=== PATIENT | female | born 1940 | race Caucasian/White ===

== ENCOUNTER 2016-08-29 20:37 | Emergency (ER) | payer MEDICARE ==
[2016-08-29] MEDS ORDERED: NS 0.9% 1000 ML* 1,000 ML IV ONE (21:20)
--- NOTE | 2016-08-29 21:49 | RAD ---
Indication: Headache. On Coumadin. Remote CVA. Comparison: November 02, 2011 CT. Technique: Noncontrast CT vertex of skull through foramen magnum. Report: Moderate prominence of the cerebral sulci and cerebellar fissures reflecting volume loss. Unremarkable ventricles and basal cisterns. Negative for agrawal matter white matter obscuration, intra or extra-axial hemorrhage, or mass effect. Unremarkable orbital contents. Unremarkable calvarium and skull base. Clear visualized paranasal sinuses and mastoid air spaces. Unremarkable scalp. IMPRESSION: Mild to moderate involutional change with interval worsening compared with the 2012 exam. No acute intracranial process evident.
[2016-08-29 23:08] LABS: Hematocrit 41 % (35-47); Hemoglobin 13.7 g/dl (12.0-16.0); Mean Corpuscular HGB Conc 34 g/dl (31-36); Mean Corpuscular Hemoglobin 30 pg (27-31); Mean Corpuscular Volume 89 fL (80-97); Mean Platelet Volume 9 um3 (7.4-10.4); Red Blood Count 4.54 10^6/ul (4.0-5.4); Red Cell Distribution Width 14 % (10.5-15); White Blood Count 4.8 10^3/ul (3.5-10.8)
[2016-08-29 23:18] LABS: Erythrocyte Sed Rate 26 mm/Hr (0-40)
[2016-08-29 23:20] LABS: Albumin 4.4 g/dL (3.2-5.2); BUN/Creatinine Ratio 18.4 (8-20); Calcium 9.5 mg/dL (8.6-10.3); EGFR African American 70.6 (>60); EGFR Non-African American 54.9 (>60); Globulin 2.9 g/dL (2-4); Total Bilirubin 0.4 mg/dL (0.2-1.0); Total Protein 7.3 g/dL (6.4-8.9)
[2016-08-29 23:35] VITALS: BP 139/49
--- NOTE | 2016-08-29 23:36 | ED ---
Alyx Bhandari Alok, scribed for Moi Muir MD on 08/29/16 at 2208 . Headache - HPI Summary HPI Summary: 76 y/o female presents to the ED for a SHAH off and on started last night. Pt states that her SHAH feels like a throbbing behind her right eye with tenderness to palpation on the top of her head that radiates to her left forehead. This eye throbbing comes and goes lasting seconds at a time, bothering her this morning before subsided throughout the day before returning again this evening prompting her visit to the ED today. At worst the patients states she experienced her eye throbbing several times per hour this evening. Pt adds that her BP was relatively high when she checked it this evening. Pt denies sinus pressure, rhinorrhea, ear pain, weakness/numbness, visual changes, or photophobia. Pt adds a recent tooth pulling due to an abscess on her left sided upper tooth which she was given Penicillin for 10 days. Pt also takes Coumadin. PMHx includes A fib and macular degeneration which she last had a right eye injection treatment two weeks ago. 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 - History Of Current Complaint Chief Complaint: EDGeneral Stated Complaint: GENERAL ILLNESS Time Seen by Provider: 08/29/16 21:42 Hx Obtained From: Patient Onset/Duration: Gradual Onset, Started days ago, Worse Since - This evening Initially Headache Was: Moderate Currently Pain Is: Moderate Timing: Intermittent, Lasting:, Seconds Character: Throbbing Location of Headache: Other: - Right eye, top of head Aggravating Factor: Nothing Allevating Factors: Nothing Associated Signs And Symptoms: Negative - Allergies/Home Medications Allergies/Adverse Reactions: Allergies Allergy/AdvReac Type Severity Reaction Status Date / Time Clarithromycin [From Biaxin] Allergy Severe SEVERE RASH Verified 08/29/16 20:51 Pseudoephedrine Allergy Severe TRIGGERS A Verified 08/29/16 20:51 [From Sudafed] FIB Tetracyclines & Related Allergy Severe SEVERE RASH Verified 08/29/16 20:51 Doxycycline Allergy Unknown Verified 08/29/16 20:51 Reaction Details PMH/Surg Hx/FS Hx/Imm Hx Endocrine/Hematology History: Denies: Hx Diabetes, Hx Thyroid Disease Cardiovascular History: Reports: Hx Valvular Heart Disease - MURMUR ATRIAL VALVE , MITRAL AORTIC VALVES, Other Cardiovascular Problems/Disorders - HX OF A FIB, TAKES FLECAINIDE BID Denies: Hx Hypercholesterolemia, Hx Hypertension, Hx Peripheral Vascular Disease Respiratory History: Reports: Hx Asthma Denies: Hx Chronic Obstructive Pulmonary Disease (COPD) GI History: Denies: Hx Ulcer Musculoskeletal History: Reports: Hx Arthritis - FINGERS, Other Musculoskeletal History - RIGHT KNEE ? POSSIBLE TORN MENISCUS Sensory History: Reports: Hx Contacts or Glasses - GLASSES, Hx Glaucoma - SMALL , JUST FORMING Denies: Hx Cataracts, Hx Hearing Aid Opthamlomology History: Reports: Hx Contacts or Glasses - GLASSES, Hx Glaucoma - SMALL, JUST FORMING Denies: Hx Cataracts Neurological History: Denies: Hx Headaches, Hx Seizures, Hx Transient Ischemic Attacks (TIA) Psychiatric History: Denies: Hx Anxiety, Hx Depression - Cancer History Cancer Type, Location and Year: lt breast ca 1999 Hx Chemotherapy: No - TAMAXAFIN X 5 YRS POST CANCER Hx Radiation Therapy: No - Surgical History Surgery Procedure, Year, and Place: 1999 lt mastectomy, 1966 endometriosis, fott surgery at 10 yrs old Hx Anesthesia Reactions: Yes - SEVERE N/V POST ENDOMETRIAL SURG Infectious Disease History: Denies: Hx Clostridium Difficile, Hx Hepatitis, Hx Human Immunodeficiency Virus (HIV), Hx of Known/Suspected MRSA, Hx Shingles, Hx Tuberculosis, History Other Infectious Disease, Traveled Outside the [place] in Last 30 Days - Family History Known Family History: Negative: Hypertension, Diabetes - Social History Occupation: Retired Lives: With Family Alcohol Use: Daily Hx Substance Use: No Substance Use Type: Reports: None Hx Tobacco Use: No Smoking Status (MU): Never Smoked Tobacco Review of Systems Negative: Fever Negative: Photophobia, Blurred Vision Negative: Ear Ache, Nasal Discharge, Other - Sinus Pressure Positive: Other - BP higher than average when checked eariler this evening Positive: Headache. Negative: Weakness, Numbness All Other Systems Reviewed And Are Negative: Yes Physical Exam Triage Information Reviewed: Yes Vital Signs On Initial Exam: Initial Vitals Temp Pulse Resp BP Pulse Ox 98.4 F 62 16 158/69 100 08/29/16 20:40 08/29/16 20:40 08/29/16 20:40 08/29/16 20:40 08/29/16 20:40 Vital Signs Reviewed: Yes Appearance: Positive: Well-Appearing, No Pain Distress Skin: Positive: Warm, Skin Color Reflects Adequate Perfusion, Dry Head/Face: Positive: Normal Head/Face Inspection Eyes: Positive: EOMI, NADYA ENT: Positive: Normal ENT inspection Neck: Positive: Supple, Nontender Respiratory/Lung Sounds: Positive: Clear to Auscultation, Breath Sounds Present Cardiovascular: Positive: RRR Abdomen Description: Positive: Nontender, Soft Bowel Sounds: Positive: Present Musculoskeletal: Positive: Normal, Strength/ROM Intact Neurological: Positive: Normal, Sensory/Motor Intact, Alert, Oriented to Person Place, Time Psychiatric: Positive: Affect/Mood Appropriate Diagnostics - Vital Signs Vital Signs Temp Pulse Resp BP Pulse Ox 08/29/16 20:40 98.4 F 62 16 158/69 100 - Laboratory Lab Results: Lab Results 08/29/16 08/29/16 08/29/16 Range/Units 22:05 22:05 22:05 WBC 4.8 (3.5-10.8) 10^3/ul RBC 4.54 (4.0-5.4) 10^6/ul Hgb 13.7 (12.0-16.0) g/dl Hct 41 (35-47) % MCV 89 (80-97) fL MCH 30 (27-31) pg MCHC 34 (31-36) g/dl RDW 14 (10.5-15) % Plt Count 251 (150-450) 10^3/ul MPV 9 (7.4-10.4) um3 ESR 26 (0-40) mm/Hr INR (Anticoag Therapy) 1.32 H (0.89-1.11) Sodium (133-145) mmol/L Potassium (3.5-5.0) mmol/L Chloride (101-111) mmol/L Carbon Dioxide (22-32) mmol/L Anion Gap (2-11) mmol/L BUN (6-24) mg/dL Creatinine (0.51-0.95) mg/dL Est GFR ( Amer) (>60) Est GFR (Non-Af Amer) (>60) BUN/Creatinine Ratio (8-20) Glucose (70-100) mg/dL Lactic Acid 0.7 (0.5-2.0) mmol/L Calcium (8.6-10.3) mg/dL Total Bilirubin (0.2-1.0) mg/dL AST (13-39) U/L ALT (7-52) U/L Alkaline Phosphatase (34-104) U/L Total Protein (6.4-8.9) g/dL Albumin (3.2-5.2) g/dL Globulin (2-4) g/dL Albumin/Globulin Ratio (1-3) 08/29/16 Range/Units 22:05 WBC (3.5-10.8) 10^3/ul RBC (4.0-5.4) 10^6/ul Hgb (12.0-16.0) g/dl Hct (35-47) % MCV (80-97) fL MCH (27-31) pg MCHC (31-36) g/dl RDW (10.5-15) % Plt Count (150-450) 10^3/ul MPV (7.4-10.4) um3 ESR (0-40) mm/Hr INR (Anticoag Therapy) (0.89-1.11) Sodium 137 (133-145) mmol/L Potassium 4.0 (3.5-5.0) mmol/L Chloride 103 (101-111) mmol/L Carbon Dioxide 27 (22-32) mmol/L Anion Gap 7 (2-11) mmol/L BUN 18 (6-24) mg/dL Creatinine 0.98 H (0.51-0.95) mg/dL Est GFR ( Amer) 70.6 (>60) Est GFR (Non-Af Amer) 54.9 (>60) BUN/Creatinine Ratio 18.4 (8-20) Glucose 96 (70-100) mg/dL Lactic Acid (0.5-2.0) mmol/L Calcium 9.5 (8.6-10.3) mg/dL Total Bilirubin 0.40 (0.2-1.0) mg/dL AST 20 (13-39) U/L ALT 15 (7-52) U/L Alkaline Phosphatase 75 (34-104) U/L Total Protein 7.3 (6.4-8.9) g/dL Albumin 4.4 (3.2-5.2) g/dL Globulin 2.9 (2-4) g/dL Albumin/Globulin Ratio 1.5 (1-3) Result Diagrams: 08/29/16 22:05 08/29/16 22:05 Lab Statement: Any lab studies that have been ordered have been reviewed, and results considered in the medical decision making process. - CT Brain CT CT Interpretation: Positive (See Comments) - IMPRESSION: Mild to moderate involutional change with interval worsening compared with the 2012 exam. No acute intracranial process evident. CT Interpretation Completed By: Radiologist - EKG 2152 Cardiac Rate: Bradycardia - 57 bpm EKG Rhythm: Sinus Bradycardia ST Segment: Normal Ectopy: None Re-Evaluation - Re-Evaluation First Eval Re-Evaluation Time: 23:11 Change: Unchanged Comment: Discussed lab results with pt Headache Course/Dx - Course Course Of Treatment: NO CRITICAL CARE TIME Assessment/Plan: DISCUSSED WITH DR DAO, NEUROLOGY. TENDERNESS IS ALONG THE DISTRIBUTION OF THE RIGHT SUPRA-ORBITAL NERVE. THE TEMPLES ARE NON TENDER. ESR NORMAL. THERE IS NO VISION LOSS OR RASH. PATIENT WILL F/U WITH OPHTHALMOLOGY AND HER PMD TOMORROW. SHE WILL RETURN IF WORSE OR ANY QUESTIONS OR CONCERNS. DISCHARGE HOME STABLE. - Diagnoses Provider Diagnoses: Eye pain, Headache, Peripheral neuropathy - Physician Notifications Discussed Care Of Patient With: Dr. Dao (Neuro) @ 2300 Discharge - Discharge Plan Condition: Stable Disposition: HOME Patient Education Materials: Peripheral Neuropathy (ED), Eye Pain (ED), General Headache (ED) Referrals: Anil Vargas MD [Primary Care Provider] - Additional Instructions: FOLLOW UP WITH YOUR PRIMARY CARE DOCTOR AND STORAGE ENGINEER TOMORROW, 08/30/16. RETURN TO THE EMERGENCY DEPARTMENT FOR ANY WORSENING OF YOUR CONDITION; VISION CHANGE, PAIN, WEAKNESS, NUMBNESS, RASH, YOU FEEL ILL OR QUESTIONS OR CONCERNS. The documentation as recorded by the Alyx martin Alok accurately reflects the service I personally performed and the decisions made by me, Moi Muir MD.
== END 2016-08-29 23:45 | disposition home or self-care (01) ==
LOC: ED 20:37
DX: G62.9 Polyneuropathy, unspecified (principal); R51 Headache; H57.10 Ocular pain, unspecified eye
CPT/HCPCS: 36415; 70450; 80053; 83605; 85027; 85610; 85652; 93005; 99283

== ENCOUNTER → 2017-05-27 14:09 | Day surgery (SDC) | payer MEDICARE ==
[~2017-05-27 14:09] MED LIST: Amiodarone 150 MG IVPREMIX* 150 MG/100 ML BAG IV ONE; Enoxaparin(*) 60 MG/0.6 ML SYR SUBCUT ONE; Flumazenil* 0.1 MG/ML 5 ML MDV ONE; Midazolam* 1 MG/ML 10 ML VIAL (10 MG) ONE; Naloxone* 0.4 MG/ML 1 ML VIAL ONE; fentaNYL* 50 MCG/ML 2 ML VIAL (100 MCG VIAL) ONE
[2017-05-27 16:01] LABS: INR 1.96 (0.77-1.02)
--- NOTE | 2017-05-27 17:06 | PROCNOTE ---
Cardiology Procedure Note 05/27/2017 External electrical cardioversion Risks benefits and alternatives discussed and patient wished to proceed Patients atrial fibrillation started last night at 8:00 PM (less than 24 hours) so LISA was not performed INR was 1.96 so a therapeutic 1 mg/kg dose of lovenox was given prior to procedure. INR 05/23/2017 was 2.4. She states INR's almost always in therapeutic range and tonight is plan for 5 mg dose as is usual for Tuesday ( every other day is 2.5 mg) Patient sedated with 5 mg IV versed, 50 mcg IV fentanyl Patient successfully cardioverted from atrial fibrillation to sinus rhythm She had a recurrence of atrial fibrillation that lasted for several minutes that self resolved to sinus rhythm IV amiodarone 150 mg x 1 was given after this and no further atrial fibrillation noted Patient will have INR re-drawn tomorrow morning (ordered) Laboratory Results - last 24 hr 05/27/17 15:29 INR (Anticoag Therapy) 1.96 H INR 05/23/2017: 2.4 07/2016: LFT's normal 05/27/2016: Na 137, k 4.5, cr 1.05, tsh 4.58, mg 2.4
== END | disposition home or self-care (01) ==
LOC: CHICATH 14:09
PROVIDERS: ATTEND Internal Medicine
DX: I48.0 Paroxysmal atrial fibrillation (principal)
CPT/HCPCS: 36415; 85610; 92960; 93005; 99156; 99157; J0282; J1650; J2250; J2310; J3010

== ENCOUNTER 2017-06-01 07:19 | Inpatient (IN) | payer MEDICARE ==
--- OUTSIDE RECORDS SUMMARY | 2017-06-01 09:12 | XMS REPORT ---
:1940 External Reference #:[id number] Author Organization [facility] Address [address] [place] [address] Phone [phone] Care Team Providers Name Role Phone Anil Vargas Care Team Information Risk Mgr Unavailable Anil Vargas Primary Care Physician Unavailable Payers Type Date Identification Numbers Payment Provider Subscriber Medicare Primary Effective: Policy Number: Medicare Uday Bryan 2005 [id number] PayID: [id number] [address] [place] [address] Medigap Part B Effective: Policy Number: [facility] Anjel Bryan 2003 [id number] Options PayID: [id number] [place] [address] Problems Date Description Provider Status Onset: 12/22/2010 Anticoagulant Anil Vargas M.D. Active Onset: 12/22/2010 Asthma without status asthmaticus Anil Vargas M.D. Active Onset: 12/22/2010 Allergic rhinitis Anil Vargas M.D. Active Onset: 02/17/2011 Open wound of finger without Shahid Richter M.D. Active complication Onset: 12/22/2010 Atrial fibrillation Anil Vargas M.D. Active Onset: 11/12/2011 Open wound of head without Anil Vargas M.D. Active complication Onset: 04/19/2012 Acute bronchitis Roverto Arana M.D. Active Onset: 11/28/2012 Arthralgia of the lower leg Anil Vargas M.D. Active Onset: 11/28/2012 Disorder of bursa of shoulder region Anil Vargas M.D. Active Onset: 02/06/2013 Malignant neoplasm of female breast Anil Vargas M.D. Active Onset: 06/17/2014 Acute upper respiratory infection Anil Vargas M.D. Active Onset: 06/17/2014 Arthralgia of the pelvic region and Anil Vargas M.D. Active thigh Onset: 06/17/2014 Swallowing problem Anil Vargas M.D. Active Onset: 04/06/2016 Paroxysmal atrial fibrillation Rober Grayson M.D. Active Onset: 06/29/2016 Mild persistent asthma Anil Vargas M.D. Active Onset: 08/31/2016 Neuralgia Anil Vargas M.D. Active Onset: 08/31/2016 Atypical facial pain Anil Vargas M.D. Active Onset: 09/30/2016 Postherpetic neuralgia Anil Vargas M.D. Active Onset: 02/10/2017 Chill Anil Vargas M.D. Active Onset: 02/10/2017 Elevated blood-pressure reading Anil Vargas M.D. Active without diagnosis of hypertension Family History Date Family Member(s) Problem(s) Comments Father due to Natural Causes () - AGE 93 Mother due to Natural Causes () - AGE 89 First Brother Diabetes Mellitus, II First Sister due to Congestive Heart Failure () Social History Type Date Description Comments Diet Diet is healthy and well balanced Cigarette Use Nonsmoker ETOH Use Consumes 1 glass of wine per day Smoking Patient has never smoked Exercise Type/Frequency Current Exercises regularly Allergies, Adverse Reactions, Alerts Date Description Reaction Status Severity Comments 10/31/1998 Tetracycline/Achromy active 04/23/2003 Biaxin active 05/04/2006 Pseduoephedrinehcl active Medications Medication Date Status Form Strength Qnty SIG Indications Ordering Provider Warfarin Sodium 11/04 Active Tablets 5mg 30tab take one Anil Harry s tablet by Midura, mouth M.D. once daily or as directed Potassium Active Tablets 20Meq 2- po qd Unknown Preservision Active Tablets 1 by Unknown Areds / mouth twice a day Qvar Active Aerosol 80mcg/Act 1 puff Unknown / twice a day- Dr. Fregoso Magnesium Active Tablets 500mg 1 po qd Unknown / Vitamin D3 Active Capsules 2000Unit 1 by Unknown /0000 mouth every day Prilosec OTC 02/[address] 20mg 30tab 1 by Nannette Mitchell s mouth Lawson, - every day M.D. 02/10 Norvasc 02/01 Hx Tablets 2.5mg 30tab 1 by Nannette Mitchell s mouth Lawson, - every day M.D. 02/10 Omeprazole 02/01 Hx Capsules 10mg 30cap [address] aurora Pathak, - every day M.D. 02/10 use this instead of the 20 anna marie prilosec thanks. Gabapentin 10/05 Hx Capsules 300mg 120ca take 1 Anil Lomax ps bid And Alicia, - 1-2 At hs M.D. 02/01 for pain Hydrocodone-Aceta 09/08 Hx Tablets 5-325mg 40tab 1 by Anil Lomax min s mouth Alicia, - four M.D. 02/01 times day as needed pain Gabapentin 09/01 Hx Capsules 100mg 240ca 1 po qam Anil THarry ps and 1 po Alicia, - qhs M.D. 02/10 Valacyclovir HCL 08/31 Hx Tablets 1gm 21tab take one Anil T. s tablet by Alicia, - mouth M.D. 09/30 times daily for 7 Prednisone 08/31 Hx Tablets 20mg 11tab 2 by M79.2 Anil THrary s mouth Alicia, - every day M.D. 09/30 x 3 days then 1 by mouth every day x 3 days then 1/2 every day x 4 Physical Therapy 08/31 Hx treatment Anil Lomax and Alicia, - evaluatio M.D. 02/01 n hip pain Amoxicillin 04/06 Hx Tablets 500mg 21tab 1 by Rober F. s mouth Shallish, - three M.D. 06/10 times a day Medrol 04/06 Hx TBPK 4mg 21uni take as ts directed Renuka, - M.D. 06/10 Tessalon Perles 04/06 Hx Capsules 100mg 30cap one to Rober F. s two tabs Shallish, - by mouth M.D. 06/10 times a day as needed cough Fluconazole 01/17 Hx Tablets 150mg 2tabs 1 by Anil T. mouth for Priyaura, - yeast M.D. 06/10 . may repeat in 5-7 days Amoxicillin 12/30 Hx Capsules 500mg 30cap 1 tab by 465.9 s mouth [place], - three M.D. 01/17 times a day x10 days Labs 08/13 Hx PT/inr dx Anil T. 427.31 Alicia, - please M.D. 12/30 fax /2014 results to Cough Syrup 06/19 Hx Syrup 100mg/5ML 100ml 5 mL po q Cinda 12 hrs Neyda, - prn BUSINESS ANALYST MANAGER 12/30 coughing Physical Therapy 06/17 Hx treatment 719.45 Anil T. and Alicia, - evaluatio M.D. 12/30 n left hip pain Amoxicillin 06/10 Hx Tablets 500mg 28tab 1 tab by E906.4 s mouth bid Neyda, - x 2 weeks BUSINESS ANALYST MANAGER 12/30 Singulair 12/29 Hx Tablets 10mg 30tab 1 po qhs Anil T. /2012 s Alicia, - M.D. 06/10 Hydrocodone/Aceta 12/29 Hx Tablets 5-500mg 40tab 1-2 po Anil T. minophen /2012 s qhs prn Alicia, - pain M.D. 02/06 Methylprednisolon 11/28 Hx Tablets 4mg 1tabs as 719.46 Anil T. e Dose Pack directed Alicia, - M.D. 02/06 Sulfamethoxazole/ 04/19 Hx Tablets 800-160mg 20tab 1 po bid 466.0 Roverto AHarry Trimethoprim Wally Bravo M.D. 04/29 Spiriva 04/19 Hx Capsules 18mcg 30cap inhale 466.0 Roverto A. Handihaler s contents Sumit, - one of Shobha 05/09 capsule by mouth daily prn cough Meclizine HCL 01/20 Hx Tablets 12.5mg 30tab 2-3po qhs 386.31 aurora Lovell - BUSINESS ANALYST MANAGER 04/19 Labs 04/01 Hx PT/Inr DX Anil T. /2010 427.31 Wally Vargas M.D. 11/11 fax /2011 results to Robitussin A-C 06/12 Hx 6Floz 1-2 tsp Shahid J. q4hrs prn Wally Richter M.D. 12/22 Proventil HFA 01/26 Hx Aerosol 108(90Bas 1unit 2 puffs q Anil T. e) mcg/ac s 4 hrs prn Wally Vargas M.D. 06/29 Augmentin 04/08 Hx Tablets 875-125mg 20tab 1 po bid Wally Kline Afnp-C 04/18 Preservision/Lute 02/19 Hx Capsules 1 po bid [facility] 04/19 [facility] Calcium/Magnesium 02/19 Hx Tablets 1 po qd [facility] 06/29 [facility] Atenolol 05/17 Hx Tablets 25mg 1/2 PO qd [facility] 12/22 [facility] Cozaar 05/17 Hx Tablets 25mg 45tab 1/2 PO qd Rober F. Wally Hernández M.D. 01/20 Levaquin 05/16 Hx Tablets 500mg 5tabs 1 po qd 466.0 Vickie Liliya - BUSINESS ANALYST MANAGER 05/26 Kristie 05/09 Hx Tabs 60mg 30tab 1 po bid 466.0 Anil T. /2006 s prn for Midura, - allergies M.D. 02/19 Robitussin ac 05/04 Hx 4Oz 1-2 tsp 478.9 Emily po q4h [place], - prn cough Afnp-C 04/18 Physical Therapy 10/28 Hx treatment Anil T. /2005 and Midura, - evaluatio M.D. 11/13 n for /2005 left thumb/nice d pain pain Breast Prosthesis 03/01 Hx 2 breast Anil T. /2004 prosthese Midura, - s and 6 M.D. 05/23 Alendronate 12/02 Hx 70mg 12uni 1 po ts weekly Ricardo, - Afnp-C 05/17 Diflucan 04/08 Hx 150mg 1unit 1 po Anil T. /2003 s Today And Mid, - Repeat In M.D. 12/02 prn Flovent HFA 12/27 Hx Aerosol 110mcg/Ac 12uni Inhale 466.0 Anil T. /2003 t ts Two Puffs Mid, - By Mouth M.D. 06/10 Every Day /2014 Albuterol Inhaler 07/07 Hx 2unit 2 puffq 466.0 Anil T. /2003 s 3-4 hrs Mid, - prn M.D. 02/19 Augmentin 04/23 Hx 500mg 20uni 1 bid x Shahid J. /2002 ts 10 days Breiman, - M.D. 12/22 Flonase 04/19 Hx Nasal 3unit 2 sprays Anil T. Sray s each Mid, - nostril M.D. 11/28 Entex Pse 04/19 Hx 20uni 1 bid prn ts congestio Ricardo, - n Afnp-C 04/29 Biaxin 04/19 Hx 500mg 20uni 1 po bid Lawanda ts x 10 days Ricardo, - Afnp-C 04/23 Tessalon Pearls 04/19 Hx 100mg 30uni 1 po tid 466.0 Anil T. /2002 ts prn Midura, - M.D. 02/19 Naproxen 02/07 Hx 500mg 60uni 1 bid Anil T. ts With Food Midura, - prn Pain M.D. 02/04 Prosthetic Bra 07/31 Hx one Anil T. breast Midura, - prosthesi M.D. 02/04 s and bras Biaxin 04/21 Hx 500mg 20uni 1 PO bid Anjel . ts Julia, - M.D. 05/01 Robitussin ac 04/18 Hx 4Oz 1-2 TSP Anjel . PO Q4H Blumkin, - prn M.D. 04/28 Terazol 3 04/14 Hx CRM20 1 Vickie G Applicato Liliya, - r hs For BUSINESS ANALYST MANAGER 04/17 3 Keflex 04/11 Hx 5Oomg 20uni 1 PO bid Anil T. [facility], - M.D. 02/07 Kristie 09/12 Hx 60mg 30uni 1 PO qd [facility], - Afnp-C 02/04 Singulair 08/26 Hx 10mg 90uni 1 po qd Anil T. [facility], - M.D. 11/28 Levaquin 06/10 Hx 500mg 10uni 1 qd Anjel . Julia, - M.D. 06/20 Zithromax 05/31 Hx 250mg 6unit 2 Tabs Anjel M. s Day 1 Julia - M.D. 06/05 1 Tab qd Days 2 Thru 5 Augmentin 03/10 Hx 875mg 20uni 1 bid Anil T. [facility], - M.D. 05/31 Zithromax 11/22 Hx 250mg 6unit 2 Tabs Vickie s Day 1 Liliya, - BUSINESS ANALYST MANAGER 11/27 1 Tab qd Days 2 Thru 5 Tobramycin Ophth. 11/17 Hx 5cc 2 GTT OD Roverto A. /1999 tid X 5-7 Darlow, - Days M.D. 05/31 Tamoxifen 07/26 Hx 10mg 180un 2qd Anil T. its Alicia - Shobha 10/04 Augmentin 05/14 Hx 500mg 20uni 1 PO bid ts X 10 Days Liliya, - BUSINESS ANALYST MANAGER 05/24 Robitussin ac 05/14 Hx 4Oz 1-2 TSP PO Q4H Liliya, - prn Cough BUSINESS ANALYST MANAGER 05/24 Duratuss 05/14 Hx 20uni 1 PO bid ts prn Head Liliya, - Congestio BUSINESS ANALYST MANAGER 09/29 n Amoxicillin 04/21 Hx 250mg 30uni 1 PO tid Anjel M. Wally Mera M.D. 05/01 Amoxicillin 03/31 Hx Tablets 500mg 30tab 1 Tablet s 3 Times Ricardo, - Daily Afnp-C 04/10 Flovent 03/24 Hx 44mcg 3unit 2 puffs Rober F. s bid Wally Grayson M.D. 12/27 Prednisone 03/24 Hx 10mg 20uni 4/D X 2D, Preet S. /1998 ts 3/D X 2D, Shobha Rizo - 2/D X 2D, 04/03 1/D X 2D /1998 Proventil 02/09 Hx 1unit 2 Puffs s Q4H prn Liliya, - For BUSINESS ANALYST MANAGER 04/19 Cough Wheeze Prednisone 02/09 Hx Tabs 20mg 17tab 3Tabs PO s qd X 2D, Chas, - 2 T PO qd Afnp-C 02/19 X 3D, 1 T PO qd X 3 Days Then 1/2 qd X 3D And D/C Cipro 02/04 Hx Tabs 500mg 14tab 1 PO bid Anil T. s Wally Vargas MKiley 02/11 Ciprofloxacin 01/26 Hx 500mg 20uni 1 PO bid Anil T. Wally Reyes M.D. 02/04 Zithromax 01/14 Hx 250mg 6unit 2 Tabs Anil T. s Day 1 Wally Vargas MKiley 02/04 1 Tab qd Days 2 Thru 5 Amoxicillin 12/26 Hx 250mg 30uni 1 PO tid Anjel Oliva Wally Mera M.D. 01/14 Lamisil Cream 11/27 Hx 1% 15GMS Apply To Affected Ricardo, - Area bid Afnp-C 12/11 Keflex 10/31 Hx Tabs 5Oomg 14tab 1 PO bid s Ricardo, - Afnp-C 11/07 Amoxicillin 09/06 Hx 250mg 30uni 1 PO tid ts Domenico, - OPERATOR COATING FURNACE-F 09/16 Robitussin ac 04/19 Hx 4Oz 1-2 TSP PO Q4H Domenico, - prn OPERATOR COATING FURNACE-F 10/31 Cough Amoxicillin 04/16 Hx 250mg 30uni 1 PO tid Anjel Oliva Wally Mera M.D. 04/26 Physical Therapy 02/07 Hx Evaluatio Anil Lomax /1996 Isacc - Archie Yeager 10/31 Back Pain Flecainide Hx Tablets 50mg 180ta 1 bid Unknown Acetate /0000 bs - 02/01 Losartan Hx Tablets 25mg 12.5 mg Unknown Potassium /0000 qd 1/2 - pill qd 02/01 Dymista Hx Suspension 137-50mcg 1 spray Unknown /0000 /Act bid - 02/06 Flonase Hx Suspension 50mcg/Act 1 each Unknown /0000 nostril - bid 06/10 Vitamin B-12 Hx Tablets 1000mcg 1 by Unknown /0000 mouth - every day 06/29 Flovent HFA Hx Aerosol 220mcg/Ac take 2 Unknown /0000 t puffs - twice a 06/29 day pr Medications Administered in Office Medication Date Status Form Strength Qnty SIG Indications Ordering Provider TB Intradermal Administered Injection Anil Vargas M.D. Immunizations CPT Code Status Date Vaccine Lot # [id number] Given 01/10/2017 High-Dose, Influenza Virus Vacccine-fluzone 65 and older 40555 Given 02/21/2016 High-Dose, Influenza Virus Vacccine-fluzone 65 and [id number] older 14128 Given 02/21/2015 High-Dose, Influenza Virus Vacccine-fluzone 65 and older 43346 Given 02/07/2014 DO Not Use Split Influenza Virus Vaccine 96613 Given 01/26/2014 Tdap Tetanus, W Pertussis [id number] 83204 Given 02/21/2013 High-Dose, Influenza Virus Vacccine-fluzone 65 and [id number] older 12981 Given 02/12/2012 High-Dose, Influenza Virus Vacccine-fluzone 65 and [id number] older Q2038 Given 02/20/2011 Split Influenza Medicare: Fluzone [id number] Given 02/20/2011 Split Influenza Medicare: Fluzone [id number] 52465 Given 03/02/2008 DO Not Use Split Influenza Virus Vaccine [id number] 06980 Given 03/29/2007 DO Not Use Split Influenza Virus Vaccine [id number] 72892 Given 03/09/2006 DO Not Use Split Influenza Virus Vaccine [id number] 35284 Given 03/12/2005 DO Not Use Split Influenza Virus Vaccine 77009 Given 04/08/2004 Pneumococcal Immunization 01637 Given 03/11/2004 DO Not Use Split Influenza Virus Vaccine 59264 Given 02/20/2003 DO Not Use Split Influenza Virus Vaccine 92811 Given 02/20/2003 DO Not Use Split Influenza Virus Vaccine 63577 Given 11/27/2002 Td Immunization, For Use In Individuals 7 Years Or Older 77169 Given 11/27/2002 DT Immunization 25484 Given 03/27/2001 Influenza Immunization 11916 Given 03/27/2001 DO Not Use Split Influenza Virus Vaccine Vital Signs Date Vital Result Comment 05/23/2017 BP Systolic 130 mmHg BP Diastolic 64 mmHg Heart Rate 74 /min Body Temperature 98.2 F Respiratory Rate 16 /min Height 60 inches 5'0" measured 06/29/16 Weight 130.00 lb BMI (Body Mass Index) 25.4 kg/m2 04/13/2017 BP Systolic 130 mmHg BP Diastolic 68 mmHg Heart Rate 66 /min Body Temperature 97.0 F Height 60 inches 5'0" measured 06/29/16 Weight 130.00 lb BMI (Body Mass Index) 25.4 kg/m2 02/10/2017 BP Systolic 122 mmHg BP Diastolic 64 mmHg Heart Rate 60 /min Body Temperature 98.2 F Height 60 inches 5'0" measured 06/29/16 Weight 127.00 lb BMI (Body Mass Index) 24.8 kg/m2 02/01/2017 BP Systolic 146 mmHg BP Diastolic 78 mmHg Heart Rate 56 /min Body Temperature 97.6 F Respiratory Rate 16 /min Height 60 inches 5'0" measured 06/29/16 Weight 129.25 lb BMI (Body Mass Index) 25.2 kg/m2 09/30/2016 BP Systolic 120 mmHg BP Diastolic 70 mmHg Heart Rate 68 /min Body Temperature 98.0 F Respiratory Rate 16 /min Height 60 inches 5'0" measured 06/29/16 Weight 143.00 lb BMI (Body Mass Index) 27.9 kg/m2 08/31/2016 BP Systolic 114 mmHg BP Diastolic 60 mmHg Heart Rate 66 /min Body Temperature 99.0 F Respiratory Rate 16 /min Height 60 inches 5'0" measured 06/29/16 Weight 132.12 lb BMI (Body Mass Index) 25.8 kg/m2 06/29/2016 BP Systolic 104 mmHg BP Diastolic 66 mmHg Heart Rate 66 /min Body Temperature 97.7 F Respiratory Rate 16 /min Height 60 inches 5'0" measured 06/29/16 Weight 130.38 lb BMI (Body Mass Index) 25.5 kg/m2 06/10/2016 BP Systolic 128 mmHg BP Diastolic 64 mmHg Heart Rate 64 /min Body Temperature 98.8 F Respiratory Rate 16 /min O2 % BldC Oximetry 98 % Height 62 inches 5'2" Weight 129.25 lb BMI (Body Mass Index) 23.6 kg/m2 04/06/2016 BP Systolic 110 mmHg BP Diastolic 60 mmHg Heart Rate 64 /min Body Temperature 99.0 F Respiratory Rate 16 /min Height 62 inches 5'2" Weight 132.00 lb BMI (Body Mass Index) 24.1 kg/m2 09/09/2015 BP Systolic 120 mmHg BP Diastolic 70 mmHg Heart Rate 60 /min Body Temperature 98.0 F Respiratory Rate 18 /min Height 62 inches 5'2" Weight 132.00 lb BMI (Body Mass Index) 24.1 kg/m2 12/30/2014 BP Systolic 128 mmHg BP Diastolic 70 mmHg Heart Rate 995 /min Body Temperature 68.0 F Respiratory Rate 16 /min Height 62 inches 5'2" Weight 127.00 lb BMI (Body Mass Index) 23.2 kg/m2 06/20/2014 BP Systolic 100 mmHg BP Diastolic 70 mmHg Heart Rate 68 /min Body Temperature 98.8 F Respiratory Rate 18 /min Height 62 inches 5'2" Weight 127.00 lb BMI (Body Mass Index) 23.2 kg/m2 06/17/2014 BP Systolic 126 mmHg BP Diastolic 64 mmHg Heart Rate 72 /min Body Temperature 98.5 F Respiratory Rate 16 /min Height 62 inches 5'2" Weight 129.50 lb BMI (Body Mass Index) 23.7 kg/m2 06/10/2014 BP Systolic 140 mmHg BP Diastolic 86 mmHg Heart Rate 64 /min Body Temperature 98.4 F Respiratory Rate 16 /min Height 62 inches 5'2" Weight 131.12 lb BMI (Body Mass Index) 24.0 kg/m2 01/26/2014 BP Systolic 124 mmHg BP Diastolic 76 mmHg Heart Rate 56 /min Body Temperature 98.9 F Respiratory Rate 16 /min Height 62 inches 5'2" Weight 131.00 lb BMI (Body Mass Index) 24.0 kg/m2 02/06/2013 BP Systolic 110 mmHg BP Diastolic 50 mmHg Heart Rate 80 /min Body Temperature 98.6 F Respiratory Rate 16 /min Height 62 inches 5'2" Weight 131.00 lb BMI (Body Mass Index) 24.0 kg/m2 11/28/2012 BP Systolic 100 mmHg BP Diastolic 60 mmHg Heart Rate 60 /min Body Temperature 97.7 F Respiratory Rate 16 /min Height 62 inches 5'2" Weight 127.12 lb BMI (Body Mass Index) 23.2 kg/m2 04/19/2012 BP Systolic 120 mmHg BP Diastolic 60 mmHg Heart Rate 60 /min Body Temperature 98.5 F Respiratory Rate 20 /min O2 % BldC Oximetry 9596 % Height 62 inches 5'2" Weight 133.00 lb BMI (Body Mass Index) 24.3 kg/m2 01/21/2012 BP Systolic 122 mmHg BP Diastolic 72 mmHg Heart Rate 63 /min Body Temperature 98.3 F Height 62 inches 5'2" Weight 129.00 lb BMI (Body Mass Index) 23.6 kg/m2 11/19/2011 BP Systolic 118 mmHg BP Diastolic 66 mmHg Heart Rate 66 /min Body Temperature 98.5 F Height 62 inches 5'2" Weight 130.00 lb BMI (Body Mass Index) 23.8 kg/m2 11/12/2011 BP Systolic 126 mmHg BP Diastolic 76 mmHg Heart Rate 66 /min Body Temperature 99.4 F Height 62 inches 5'2" Weight 128.00 lb BMI (Body Mass Index) 23.4 kg/m2 02/17/2011 BP Systolic 124 mmHg BP Diastolic 62 mmHg Heart Rate 64 /min Height 62 inches 5'2" Weight 126.00 lb BMI (Body Mass Index) 23.0 kg/m2 12/22/2010 BP Systolic 100 mmHg BP Diastolic 70 mmHg Heart Rate 68 /min Body Temperature 98.4 F Height 62 inches 5'2" Weight 125.00 lb BMI (Body Mass Index) 22.9 kg/m2 06/12/2010 BP Systolic 112 mmHg BP Diastolic 62 mmHg Heart Rate 60 /min Body Temperature 98.9 F Height 62 inches 5'2" Weight 130.00 lb BMI (Body Mass Index) 23.8 kg/m2 01/27/2010 BP Systolic 120 mmHg BP Diastolic 60 mmHg Heart Rate 52 /min Body Temperature 97.7 F Height 62 inches 5'2" Weight 123.00 lb BMI (Body Mass Index) 22.5 kg/m2 01/07/2010 BP Systolic 112 mmHg BP Diastolic 60 mmHg Heart Rate 56 /min Height 62 inches 5'2" Weight 125.00 lb BMI (Body Mass Index) 22.9 kg/m2 05/20/2009 BP Systolic 120 mmHg BP Diastolic 60 mmHg Heart Rate 60 /min Body Temperature 97.4 F Height 62 inches 5'2" Weight 130.00 lb BMI (Body Mass Index) 23.8 kg/m2 04/08/2009 BP Systolic 88 mmHg BP Diastolic 60 mmHg Heart Rate 72 /min Body Temperature 99.0 F Height 62 inches 5'2" Weight 131.00 lb BMI (Body Mass Index) 24.0 kg/m2 02/19/2009 BP Systolic 94 mmHg BP Diastolic 60 mmHg Heart Rate 56 /min Body Temperature 98.7 F Height 62 inches 5'2" Weight 129.00 lb BMI (Body Mass Index) 23.6 kg/m2 05/17/2008 BP Systolic 98 mmHg BP Diastolic 58 mmHg Heart Rate 56 /min Body Temperature 97.9 F Respiratory Rate 16 /min Height 62 inches 5'2" Weight 131.00 lb BMI (Body Mass Index) 24.0 kg/m2 06/10/2006 BP Systolic 114 mmHg BP Diastolic 60 mmHg Heart Rate 78 /min Body Temperature 98.5 F Height 62 inches 5'2" Weight 134.00 lb BMI (Body Mass Index) 24.5 kg/m2 05/24/2006 BP Systolic 132 mmHg BP Diastolic 82 mmHg Heart Rate 80 /min Body Temperature 98.2 F Height 62 inches 5'2" 05/09/2006 BP Systolic 118 mmHg BP Diastolic 64 mmHg Heart Rate 60 /min Body Temperature 98.9 F Height 62 inches 5'2" Weight 131.00 lb BMI (Body Mass Index) 24.0 kg/m2 05/04/2006 BP Systolic 102 mmHg BP Diastolic 54 mmHg Body Temperature 99.6 F Height 62 inches 5'2" Weight 130.00 lb BMI (Body Mass Index) 23.8 kg/m2 10/08/2005 BP Systolic 112 mmHg BP Diastolic 60 mmHg Heart Rate 72 /min Height 62 inches 5'2" 03/24/2005 BP Systolic 128 mmHg BP Diastolic 72 mmHg Heart Rate 68 /min Height 62 inches 5'2" Weight 132.00 lb BMI (Body Mass Index) 24.1 kg/m2 09/16/2004 BP Systolic 98 mmHg BP Diastolic 60 mmHg Heart Rate 72 /min Height 62 inches 5'2" Weight 128.00 lb BMI (Body Mass Index) 23.4 kg/m2 08/18/2004 BP Systolic 130 mmHg BP Diastolic 82 mmHg Body Temperature 98.5 F Height 62 inches 5'2" Weight 128.00 lb BMI (Body Mass Index) 23.4 kg/m2 04/08/2004 BP Systolic 100 mmHg BP Diastolic 50 mmHg Heart Rate 60 /min Height 62 inches 5'2" Weight 130.00 lb BMI (Body Mass Index) 23.8 kg/m2 07/08/2003 BP Systolic 122 mmHg BP Diastolic 62 mmHg Heart Rate 76 /min Height 62 inches 5'2" Weight 130.00 lb BMI (Body Mass Index) 23.8 kg/m2 06/10/2003 BP Systolic 114 mmHg BP Diastolic 62 mmHg Heart Rate 74 /min Height 62 inches 5'2" Weight 132.00 lb BMI (Body Mass Index) 24.1 kg/m2 04/19/2003 BP Systolic 120 mmHg BP Diastolic 68 mmHg Heart Rate 72 /min Body Temperature 101.0 F Height 62 inches 5'2" Weight 121.00 lb BMI (Body Mass Index) 22.1 kg/m2 02/04/2003 Heart Rate 74 /min Body Temperature 98.0 F Height 62 inches 5'2" Weight 126.00 lb BMI (Body Mass Index) 23.0 kg/m2 02/07/2002 BP Systolic 120 mmHg BP Diastolic 58 mmHg Heart Rate 64 /min Height 62 inches 5'2" Weight 129.50 lb BMI (Body Mass Index) 23.7 kg/m2 04/21/2001 BP Systolic 124 mmHg BP Diastolic 74 mmHg Heart Rate 72 /min Body Temperature 98.6 F Height 62 inches 5'2" Weight 130.00 lb BMI (Body Mass Index) 23.8 kg/m2 04/14/2001 BP Systolic 100 mmHg BP Diastolic 60 mmHg Body Temperature 98.0 F Height 62 inches 5'2" Weight 129.00 lb BMI (Body Mass Index) 23.6 kg/m2 04/11/2001 BP Systolic 112 mmHg BP Diastolic 64 mmHg Body Temperature 98.5 F Weight 132.00 lb 09/12/2000 BP Systolic 108 mmHg BP Diastolic 80 mmHg Body Temperature 99.2 F Weight 127.00 lb 08/26/2000 BP Systolic 100 mmHg BP Diastolic 60 mmHg Body Temperature 98.7 F Weight 129.00 lb 06/10/2000 BP Systolic 120 mmHg BP Diastolic 56 mmHg Body Temperature 99.8 F Weight 128.00 lb 05/31/2000 BP Systolic 116 mmHg BP Diastolic 64 mmHg Body Temperature 98.2 F Weight 131.00 lb 03/10/2000 BP Systolic 126 mmHg Ra, SM Cuff BP Diastolic 70 mmHg Ra, SM Cuff Body Temperature 99.0 F Tymp Weight 129.00 lb 11/23/1999 Body Temperature 97.6 F Weight 130.00 lb 11/18/1999 BP Systolic 106 mmHg Ra, SM Cuff BP Diastolic 70 mmHg Ra, SM Cuff Heart Rate 60 /min Reg Weight 128.50 lb 09/30/1999 BP Systolic 108 mmHg BP Diastolic 70 mmHg Heart Rate 62 /min Body Temperature 96.5 F Weight 129.00 lb 07/06/1999 Body Temperature 97.6 F Weight 134.00 lb 05/14/1999 Body Temperature 100.4 F Weight 134.00 lb 04/21/1999 Body Temperature 96.9 F Weight 134.00 lb 04/08/1999 Body Temperature 97.4 F 03/31/1999 Body Temperature 97.8 F 03/24/1999 Body Temperature 97.4 F Weight 134.00 lb 02/09/1999 Body Temperature 98.4 F Weight 134.00 lb 01/14/1999 Body Temperature 98.5 F Weight 128.00 lb 11/27/1998 Body Temperature 98.0 F 10/31/1998 Body Temperature 97.0 F Weight 128.00 lb Results Test Date Test Result H/L Range Note Laboratory test finding 05/23/2017 Inr (Fma) 2.4 2-3 Laboratory test finding 04/13/2017 Quickstrep neg Negative Laboratory test finding 04/07/2017 Inr (Fma) 2.5 2.0-3.0 Laboratory test finding 03/08/2017 Inr (Fma) 2.9 2.0-3.0 Laboratory test finding 02/14/2017 Inr (Fma) 2.9 2.0-3.0 Complete Blood Count 02/10/2017 WBC 5.8 x10^3/UL 3.6-9.6 RBC 4.48 x10^6/UL 3.90-5.70 HGB 13.9 g/dL 12.1-17.2 HCT 40 % 36-50 MCV 90.0 fL 82.2-97.4 MCH 30.9 pg 27.6-33.3 MCHC 34.5 g/dL 33.0-35.5 RDW 14.1 % High 11.6-13.7 PLT 242 x10^3/UL 150-400 MPV 7.5 fL 7.4-10.4 Gran # 4.2 x10^3/UL 1.5-7.2 Lymph# 1.4 x10^3/UL 0.7-4.9 [place]# 0.2 x10^3/UL 0.1-0.9 Gran % 72.0 % 42.2-75.2 Lymph % 24.4 % 20.5-51.1 [place]% 3.6 % 1.7-9.3 Comprehensive Metabolic Prof 02/10/2017 Sodium 149 mEq/L 134-149 Potassium 4.6 mEq/L 3.6-5.5 Chloride 110 mEq/L 94-112 Carbon Dioxide 23 mEq/L 21-32 Glucose 106 mg/dL High 70-105 1 BUN 22 mg/dL 6-26 Creatinine 0.9 mg/dL 0.6-1.4 BUN/Creat Ratio 24.4 CALC 8.0-36.0 Calcium 10.0 mg/dL 8.6-10.2 Total Protein 7.3 g/dL 6.4-8.3 Albumin 4.7 g/dL 3.8-5.5 Globulin 2.6 g/dL 2.0-4.8 A/G Ratio 1.8 CALC 0.6-2.3 Alk. Phosphatase 91 U/L 30-110 Alt (SGPT) 17 U/L 7-35 Ast (Sgot) 21 U/L 5-34 Total Bilirubin 0.5 mg/dL 0.2-1.3 GFR Non- >60 ml/min/1.73m^ >=60 GFR >60 ml/min/1.73m^ >=60 Laboratory test finding 02/10/2017 TSH 3.32 mIU/L 0.50-6.00 Free T4 0.90 ng/dL 0.75-1.54 Laboratory test 02/10/2017 C-Reactive Protein, 4.5 mg/L 0.0-4.9 2 finding Quant Laboratory test 02/10/2017 Sedimentation Rate 13 mm finding Laboratory test 01/31/2017 Inr (Fma) 2.5 2.0-3.0 finding Laboratory test 12/29/2016 Inr (Fma) 2.8 2.0-3.0 finding Laboratory test 11/30/2016 Inr (Fma) 2.3 2.0-3.0 finding Laboratory test 11/16/2016 Inr (Fma) 3.8 High 2.0-3.0 finding Laboratory test 10/25/2016 Inr (Fma) 1.8 Low 2.0-3.0 finding Laboratory test 10/12/2016 Inr (Fma) 1.5 Low 2.0-3.0 finding Laboratory test 09/23/2016 Inr (Fma) 3.4 High 2.0-3.0 finding Laboratory test 09/11/2016 Inr (Fma) 3.5 High 2.0-3.0 finding Laboratory test 08/30/2016 Inr (Fma) 1.8 Low 2-3 finding Laboratory test 08/29/2016 Lactic Acid 0.7 mmol/L 0.5-2.0 3 finding Inr/Protime 08/29/2016 Inr 1.32 High 0.89-1.11 Laboratory test 08/16/2016 Inr (Fma) 3.4 High 2.0-3.0 finding Laboratory test 06/29/2016 Inr (Fma) 3.3 High 2.0-3.0 finding Ua - Non Micro (Fma) 06/29/2016 Appearance CLEAR Color YELLOW Glucose, Urine (Fma/CMC/CTX) NEG Bilirubin NEG Ketones NEG SP Grav 1.020 Blood NEG PH 6.5 Protein NEG Urobil 0.2 Nitrite NEG Leukocytes (Fma/CMC/Centrex) NEG Comprehensive Metabolic Prof 06/10/2016 Sodium 142 mEq/L 134-149 Potassium 4.6 mEq/L 3.6-5.5 Chloride 111 mEq/L 94-112 Carbon Dioxide 24 mEq/L 21-32 Glucose 99 mg/dL 70-105 BUN 17 mg/dL 6-26 Creatinine 1.0 mg/dL 0.6-1.4 BUN/Creat Ratio 17.0 CALC 8.0-36.0 Calcium 9.5 mg/dL 8.6-10.2 Total Protein 7.1 g/dL 6.4-8.3 Albumin 4.2 g/dL 3.8-5.5 Globulin 2.9 g/dL 2.0-4.8 A/G Ratio 1.4 CALC 0.6-2.3 Alk. Phosphatase 78 U/L 30-110 Alt (SGPT) 20 U/L 7-35 Ast (Sgot) 22 U/L 5-34 Total Bilirubin 0.4 mg/dL 0.2-1.3 GFR Non- 57 ml/min/1.73m^ Low >=60 GFR >60 ml/min/1.73m^ >=60 Laboratory test finding 06/10/2016 Free T4 0.84 ng/dL 0.75-1.54 TSH 4.63 mIU/L 0.50-6.00 CBC Electronic (Fma) 06/10/2016 WBC 5.1 3.6-9.6 RBC 4.51 3.90-5.70 Hemoglobin (Fma/CMC/CTX) 13.7 g/dL 12.1 - 17.2 Hematocrit (Fma/CMC/CTX) 41.3 % 36.1 - 50.3 Platelets 264 10^3/ul 150-400 Lymph% 32.8 % 17.0-48.0 Mixed% 4.5 Neutrophils % 62.7 Mean Corpuscular Vol 92 82.2-97.4 Mean Corpuscular Hemoglobin 30.5 27.6-33.3 Mean Corpuscular Hemo Concen 33.3 32.0-36.0 RDW 13.8 High 11.6-13.7 Mean Platelet Volume 7.5 5.5-11.0 Laboratory test finding 06/10/2016 Inr (Fma) 3.1 High 2.0-3.0 Laboratory test finding 04/14/2016 Inr (Fma) 2.2 2.0-3.0 Laboratory test finding 04/09/2016 Inr (Fma) 3.4 High 2.0-3.0 Laboratory test finding 04/06/2016 Inr (Fma) 2.3 2.0-3.0 Lipid Profile 04/06/2016 Cholesterol 264 mg/dL High 120-200 Triglycerides 232 mg/dL High 30-200 HDL Cholesterol 66 mg/dL 30-85 LDL (Calculated) 152 CALC High 0-129 VLDL Cholesterol 46 mg/dL 0-50 HDL Risk Factor 4.0 CALC 0.0-4.4 Laboratory test finding 04/06/2016 Free T4 0.89 ng/dL 0.75-1.54 TSH 4.02 mIU/L 0.50-6.00 Comprehensive Metabolic Prof 04/06/2016 Sodium 141 mEq/L 134-149 Potassium 4.4 mEq/L 3.6-5.5 Chloride 100 mEq/L 94-112 Carbon Dioxide 26 mEq/L 21-32 Glucose 74 mg/dL 70-105 BUN 19 mg/dL 6-26 Creatinine 0.8 mg/dL 0.6-1.4 BUN/Creat Ratio 23.8 CALC 8.0-36.0 Calcium 9.4 mg/dL 8.6-10.2 Total Protein 6.8 g/dL 6.4-8.3 Albumin 4.2 g/dL 3.8-5.5 Globulin 2.6 g/dL 2.0-4.8 A/G Ratio 1.6 CALC 0.6-2.3 Alk. Phosphatase 81 U/L 30-110 Alt (SGPT) 15 U/L 7-35 Ast (Sgot) 21 U/L 5-34 Total Bilirubin 0.4 mg/dL 0.2-1.3 GFR Non- >60 ml/min/1.73m^ >=60 GFR >60 ml/min/1.73m^ >=60 Complete Blood Count 04/06/2016 WBC 5.2 x10^3/UL 3.6-9.6 RBC 4.16 x10^6/UL 3.90-5.70 HGB 13.2 g/dL 12.1-17.2 HCT 38 % 36-50 MCV 92.0 fL 82.2-97.4 MCH 31.8 pg 27.6-33.3 MCHC 34.6 g/dL 33.0-35.5 RDW 14.9 % High 11.6-13.7 PLT 259 x10^3/UL 150-400 MPV 7.9 fL 7.4-10.4 Gran # 3.8 x10^3/UL 1.5-7.2 Lymph# 1.2 x10^3/UL 0.7-4.9 [place]# 0.2 x10^3/UL 0.1-0.9 Gran % 72.4 % 42.2-75.2 Lymph % 23.2 % 20.5-51.1 [place]% 4.4 % 1.7-9.3 Laboratory test finding 02/21/2016 Inr (Fma) 2.3 2.0-3.0 Laboratory test finding 01/29/2016 Inr (Fma) 3.0 2.0-3.0 Laboratory test finding 01/19/2016 Inr (Fma) 1.5 Low 2.0-3.0 Laboratory test finding 10/29/2015 Inr (Fma) 2.4 2-3 Laboratory test finding 09/09/2015 Inr (Fma) 2.2 2.0-3.0 Ua - Micro (Fma) 09/09/2015 Appearance clear Color yellow Glucose, Urine (Fma/CMC/CTX) neg Bilirubin neg Ketones neg SP Grav 1.020 Blood neg PH 7.5 Protein neg Urobil 0.2 Nitrite neg Leukocytes (Fma/CMC/Centrex) trace Hyaline - /Lpf Granular - /Lpf WBC (Fma,Centrex) 2-3 RBC - Mucus - /Lpf Epith occass /Lpf Bacteria trace /Hpf Amorphous - /Lpf Crystals, Fluid (Fma/CMC/CTX) - Z#Comments - Laboratory test finding 08/14/2015 Inr (Fma) 2.9 2.0-3.0 Laboratory test finding 07/08/2015 Inr (Fma) 2.4 2.0-3.0 Laboratory test finding 06/06/2015 [facility] [place] [facility] [place]/inr Laboratory test finding 05/06/2015 Inr (Fma) 2.6 2-3 Laboratory test finding 03/11/2015 Inr (Fma) 2.8 2-3 Laboratory test finding 02/25/2015 Inr (Fma) 1.8 Low 2-3 Laboratory test finding 02/11/2015 Inr (Fma) 3.3 High 2.0-3.0 Laboratory test finding 12/30/2014 Inr (Fma) 2.0 2-3 Laboratory test finding 12/03/2014 Inr (Fma) 2.3 2.0-3.0 Laboratory test finding 10/17/2014 Inr (Fma) 2.2 2-3 Laboratory test finding 10/09/2014 Surgical Pathology SEE RESULT BELOW 4 Laboratory test finding 09/27/2014 Inr (Fma) 2.2 2.0-3.0 Laboratory test finding 09/16/2014 Inr (Fma) 3.5 High 2.0-3.0 Laboratory test finding 08/13/2014 Inr (Fma) 3.1 High 2.0-3.0 Urine Culture And 08/06/2014 Urine Culture (SEE NOTE) 5 Sensitivities Basic Metabolic Panel 08/02/2014 Sodium 138 mmol/L 133-145 Potassium 4.0 mmol/L 3.5-5.0 Chloride 103 mmol/L 101-111 Co2 Carbon Dioxide 27 mmol/L 22-32 Anion Gap 8 mmol/L 2-11 Glucose 85 mg/dL 70-100 Blood Urea Nitrogen 19 mg/dL 6-24 Creatinine 0.93 mg/dL 0.51-0.95 BUN/Creatinine Ratio 20.4 High 8-20 Calcium 9.4 mg/dL 8.6-10.3 Egfr Non- 58.8 >60 Egfr 75.6 >60 6 Laboratory test finding 08/02/2014 Magnesium 2.2 mg/dL 1.9-2.7 TSH (Thyroid Stimulating Horm) 3.01 IU/mL 0.34-5.60 Laboratory test finding 07/31/2014 Inr (Fma) 3.1 High 2.0-3.0 Laboratory test finding 07/15/2014 Inr (Fma) 1.8 Low 2-3 Laboratory test finding 07/10/2014 Inr (Fma) 2.1 2.0-3.0 Laboratory test finding 07/08/2014 Inr (Fma) 5.7 High 2-3 Urine Culture And Sensitivities 07/05/2014 Urine Culture (SEE NOTE) 7 Influenza A&B-fma 06/20/2014 Influenza A NEGATIVE Influenza B NEGATIVE Laboratory test finding 06/17/2014 Inr (Fma) 3.1 High 2-3 Laboratory test finding 06/12/2014 Inr (Fma) 2.4 2.0-3.0 Laboratory test finding 06/10/2014 Inr (Fma) 1.8 Low 2.0-3.0 Laboratory test finding 05/09/2014 [facility] [place] [facility] [place]/inr Laboratory test finding 03/19/2014 Inr (Fma) 1.9 Low 2-3 Laboratory test finding 01/18/2014 Inr (Fma) 2.3 2-3 Laboratory test finding 01/03/2014 Inr (Fma) 1.4 Low 2.0-3.0 Laboratory test finding 11/21/2013 Inr (Fma) 2.9 2.0-3.0 Laboratory test finding 11/06/2013 Inr (Fma) 1.5 Low 2.0-3.0 Basic Metabolic Panel 09/06/2013 Sodium 140 mmol/L 133-145 Potassium 4.3 mmol/L 3.7-5.6 Chloride 105 mmol/L 101-111 Co2 Carbon Dioxide 29 mmol/L 22-32 Anion Gap 6 mmol/L 2-11 Glucose 96 mg/dL 70-100 Blood Urea Nitrogen 16 mg/dL 6-24 Creatinine 1.02 mg/dL High 0.51-0.95 BUN/Creatinine Ratio 15.7 8-20 Calcium 9.6 mg/dL 8.6-10.3 Egfr Non- 52.8 >60 Egfr 67.9 >60 8 Laboratory test finding 09/04/2013 Inr (Fma) 2.6 High 0.9-1.1 Laboratory test finding 08/03/2013 Inr (Fma) 1.9 Low 2.0-3.0 Laboratory test finding 06/11/2013 Inr (Fma) 2.1 2.0-3.0 Laboratory test finding 04/19/2013 Inr (Fma) 2.5 2.0-3.0 Laboratory test finding 03/12/2013 Inr (Fma) 2.2 2.0-3.0 Laboratory test finding 02/21/2013 Inr (Fma) 1.8 Low 2-3 Laboratory test finding 01/24/2013 Inr (Fma) 2.5 2-3 Laboratory test finding 01/10/2013 Inr (Fma) 1.8 Low 2-3 Laboratory test finding 12/29/2012 Inr (Fma) 3.3 High 2-3 Laboratory test finding 12/01/2012 Inr (Fma) 2.4 2.0-3.0 Laboratory test finding 11/28/2012 Inr (Fma) 1.9 Low 2.0-3.0 Laboratory test finding 11/01/2012 Inr (Fma) 2.0 2-3 Laboratory test finding 09/15/2012 Inr (Fma) 2.6 2.0-3.0 Laboratory test finding 08/16/2012 Inr (Fma) 2.1 2-3 Laboratory test finding 07/26/2012 Inr (Fma) 2.4 2-3 Laboratory test finding 07/04/2012 Inr (Fma) 1.8 Low 2-3 Laboratory test finding 06/21/2012 Inr (Fma) 2.0 2.0-3.0 Laboratory test finding 06/06/2012 Inr (Fma) 1.5 Low 2-3 Laboratory test finding 05/09/2012 Inr (Fma) 2.0 2.0-3.0 Laboratory test finding 04/27/2012 Inr (Fma) 2.3 2.0-3.0 Laboratory test finding 04/22/2012 Inr (Fma) 3.4 High 2.0-3.0 Laboratory test finding 04/17/2012 Inr (Fma) 2.7 2-3 Laboratory test finding 02/26/2012 Inr (Fma) 2.8 2.0-3.0 Laboratory test finding 01/20/2012 Inr (Fma) 3.0 2.0-3.0 Laboratory test finding 12/15/2011 Inr (Fma) 2.1 2-3 Laboratory test finding 10/27/2011 Inr (Fma) 2.8 2-3 Laboratory test finding 10/06/2011 Inr (Fma) 2.5 2.0-3.0 Laboratory test finding 09/22/2011 Inr (Fma) 1.9 Low 2.0-3.0 Laboratory test finding 09/08/2011 Inr (Fma) 1.8 Low 2.0-3.0 Laboratory test finding 08/12/2011 Inr (Fma) 2.2 2-3 Laboratory test finding 06/11/2011 Inr (Fma) 2.1 2.0-3.0 Laboratory test finding 05/12/2011 Inr (Fma) 2.1 2-3 Laboratory test finding 04/02/2011 [facility] [place] [facility] Test pt/inr Laboratory test finding 02/23/2011 Inr (Fma) 2.0 2-3 Laboratory test finding 01/29/2011 Inr (Fma) 2.3 2.0-3.0 Laboratory test finding 12/22/2010 Inr (Fma) 2.2 2.0-3.0 Laboratory test finding 11/26/2010 Inr (Fma) 2.0 2-3 Laboratory test finding 11/03/2010 Inr (Fma) 2.1 2.0-3.0 Laboratory test finding 10/20/2010 Inr (Fma) 2.4 2.0-3.0 Laboratory test finding 10/08/2010 Inr (Fma) 3.4 High 2.0-3.0 Laboratory test finding 10/01/2010 Inr (Fma) 3.4 High 2.0-3.0 CBC With Electronic Diff 03/03/2010 White Blood Count 4.4 CUMM Low 4.8- 10.8 9 Red Cell Count 4.10 CUMM Low 4.2-5.4 9 Hemoglobin 13.0 g/dL 12.0-16.0 9 Hematocrit 37 % 35-47 9 Mean Corpuscular Volume 91 um3 79-97 9 Mean Corpuscular Hemoglob 32 pg High 27-31 9 Mean Corpuscular HGB Cone 35 g/dL 32-36 9 Redcell Distribution WDTH 13 % 10.5-15 9 Platelet Count 256 CUMM 150-450 9 Mean Platelet Volume 8.8 um3 7.4-10.4 9 Gran % 55.9 % 38-83 9 Lymph % 29.3 % 25-47 9 Mononuclear % 8.1 % 1-9 9 Eosinophil % 5.4 % 0-6 9 Basophil % 1.3 % 0-2 9 Abs Lymphs 1.3 1.0-4.8 9 Abs Mononuclear 0.4 0-0.8 9 Absolute Neutrophil Count 2.5 1.5-7.7 9 Abs Eosinophils 0.2 0-0.6 9 Abs Basophils 0.1 0-0.2 9 Type And Screen 03/03/2010 Patient Blood Type O POSITIVE 9 Antibody Screen NEGATIVE 9 Specimen Discard Date 03/17/10 9, 10 Basic Metabolic Panel 03/03/2010 Sodium 137 mmol/L 135-145 9 Potassium 4.3 mmol/L 3.5-5.0 9 Chloride 103 mmol/L 101-111 9 Co2 (Carbon Dioxide) 28.0 mmol/L 22-32 9 Anion Gap 6.0 mmol/L 2-11 9, 11 Glucose 63 mg/dL Low 70-100 9, 12 BUN 20 mg/dL 6-24 9 Creatinine 1.00 mg/dL 0.50-1.40 9 One Over Creatinine 1.00 9 BUN/Creatinine Ratio 20.0 8-20 9 Calcium 9.3 mg/dL 8.1-9.9 9 eGFR Non- 58.1 > 60 9 eGFR 70.3 > 60 9, 13 Ict Hemoccult (Fma) 02/05/2010 Ict Hemoccult (1) neg Ict Hemoccult-(2) neg Ict-Hemoccult (3) neg Comprehensive Metabolic Prof 01/27/2010 Albumin 4.5 g/dL 3.8-5.5 Alk. Phos. 65 U/L 30-110 Alt (SGPT) 12 U/L 7-35 Ast (Sgot) 20 U/L 5-34 BUN 21 mg/dL 6-26 Calcium 10.0 mg/dL 8.6-10.2 Chloride 99 mEq/L 94-112 Creatinine 1.0 mg/dL 0.6-1.4 Carbon Dioxide 26 mEq/L 21-32 Glucose 91 mg/dL 70-105 Sodium 138 mEq/L 134-149 Total Bilirubin 0.4 mg/dL 0.2-1.3 Total Protein 6.6 g/dL 6.3-8.1 Potassium 4.7 mEq/L 3.6-5.5 Globulin 2.1 g/dL 2.0-4.8 A/G Ratio 2.2 Calc 0.6-2.2 BUN/Creat Ratio 21.2 Calc 8.0-36.0 Ua - Micro (Fma) 01/27/2010 Appearance clear Color yellow Glucose, Urine (Fma/CMC/CTX) neg Bilirubin neg Ketones neg SP Grav 1.015 Blood neg PH 7.0 Protein neg Urobil 0.2 Nitrite neg Leukocytes (Fma/CMC/Centrex) trace Hyaline - /Lpf Granular - /Lpf WBC (Fma,Centrex) 1-3 RBC - Mucus (Fma/CBC/Centrex) - /Lpf Epith rare /Lpf Bacteria trace /Hpf Amorphous (Fma/CMC/Centrex) - /Lpf Crystals, Fluid (Fma/CMC/CTX) - Z#Comments - CBC (a) 01/27/2010 WBC 4.9 3.6-9.6 RBC 4.03 3.90-5.70 Hemoglobin (Fma/CMC/CTX) 12.7 g/dL 12.1 - 17.2 Hematocrit (Fma/CMC/CTX) 35.8 % Low 36.1 - 50.3 Mean Corpuscular Vol 89 82.2-97.4 Mean Corpuscular Hemaglobin 31.5 27.6-33.3 Mean Corpuscular Hemo Concen 35.4 33.0-36.0 Platelets 278 10^3/ul 150-400 Lymph% 26.0 20.5-51.1 Mixed% 6.3 Neutrophils % 67.7 RDW 12.0 11.6-13.7 Mean Platelet Volume 9.1 7.4-10.4 Lipid Profile 01/13/2010 Cholesterol 209 mg/dL High 120-200 HDL 48 mg/dL 30-85 Triglycerides 149 mg/dL 30-200 HDL Risk Factor 4.4 CALC 4.2-7.0 LDL (Calculated) 132 CALC High 0-129 VLDL (Calculated) 30 mg/dL 0-50 Laboratory test finding 01/06/2010 Magnesium 2.5 mg/dL 1.7-2.6 Troponin-I (TnI) 0 NG/ML 14 Thyroxine Free 0.76 NG/ML 0.61-1.24 TSH 5.61 MIU/ML High 0.34-5.60 Comp Metabolic Panel 01/06/2010 Sodium 138 mmol/L 135-145 Potassium 3.8 mmol/L 3.5-5.0 Chloride 106 mmol/L 101-111 Co2 (Carbon Dioxide) 25.0 mmol/L 22-32 Anion Gap 7.0 mmol/L 2-11 15 Glucose 111 mg/dL High 70-100 16 BUN 20 mg/dL 6-24 Creatinine 1.20 mg/dL 0.50-1.40 One Over Creatinine 0.80 BUN/Creatinine Ratio 16.7 8-20 Calcium 9.3 mg/dL 8.1-9.9 Total Protein 7.1 GM/DL 6.2-8.1 Albumin 4.1 GM/DL 3.2-5.2 Globulin 3.0 GM/DL 2-4 Albumin/Globulin Ratio 1.4 1-3 Bilirubin Total 0.7 mg/dL 0.4-1.5 17 Alkaline Phosphatase 68 U/L 30-110 Alt (SGPT) 16 U/L 14-54 Ast (Sgot) 25 U/L 12-42 eGFR Non- 47.1 > 60 eGFR 57.0 > 60 18 CBC With Electronic Diff 01/06/2010 White Blood Count 5.0 CUMM 4.8-10.8 Red Cell Count 4.24 CUMM 4.2-5.4 Hemoglobin 13.6 g/dL 12.0-16.0 Hematocrit 39 % 35-47 Mean Corpuscular Volume 91 um3 79-97 Mean Corpuscular Hemoglob 32 pg High 27-31 Mean Corpuscular HGB Cone 35 g/dL 32-36 Redcell Distribution WDTH 13 % 10.5-15 Platelet Count 249 CUMM 150-450 Mean Platelet Volume 8.3 um3 7.4-10.4 Gran % 43.5 % 38-83 Lymph % 42.5 % 25-47 Mononuclear % 6.9 % 1-9 Eosinophil % 6.0 % 0-6 Basophil % 1.1 % 0-2 Abs Lymphs 2.1 1.0-4.8 Abs Mononuclear 0.3 0-0.8 Absolute Neutrophil Count 2.2 1.5-7.7 Abs Eosinophils 0.3 0-0.6 Abs Basophils 0.1 0-0.2 Basic Metabolic Panel 12/24/2008 Sodium 140 mmol/L 135-145 Potassium 4.2 mmol/L 3.5-5.0 Chloride 106 mmol/L 101-111 Co2 (Carbon Dioxide) 29.0 mmol/L 22-32 Anion Gap 5.0 mmol/L 2-11 19 Glucose 101 mg/dL High 70-100 20 BUN 15 mg/dL 6-24 Creatinine 0.90 mg/dL 0.50-1.40 One Over Creatinine 1.10 BUN/Creatinine Ratio 16.7 8-20 Calcium 9.4 mg/dL 8.1-9.9 21 eGFR Non- 65.8 > 60 eGFR 79.6 > 60 22 Protime Stat 11/20/2008 Inr 1.01 0.86-1.13 23 Protime 12.3 SEC 10.67-13.64 24 Comp Stat 11/20/2008 Sodium 141 mmol/L 135-145 Potassium 3.6 mmol/L 3.5-5.0 Chloride 108 mmol/L 101-111 Co2 (Carbon Dioxide) 25.0 mmol/L 22-32 Anion Gap 8.0 mmol/L 2-11 25 Glucose 129 mg/dL High 70-100 26 BUN 16 mg/dL 6-24 Creatinine 0.90 mg/dL 0.50-1.40 One Over Creatinine 1.10 BUN/Creatinine Ratio 17.8 8-20 Calcium 9.2 mg/dL 8.1-9.9 27 Total Protein 6.7 GM/DL 6.2-8.1 Albumin 4.0 GM/DL 3.2-5.2 Globulin 2.7 GM/DL 2-4 Albumin/Globulin Ratio 1.5 1-3 Bilirubin Total 0.6 mg/dL 0.4-1.5 28 Alkaline Phosphatase 77 U/L 30-110 Alt (SGPT) 19 U/L 14-54 Ast (Sgot) 27 U/L 12-42 eGFR Non- 65.8 > 60 eGFR 79.6 > 60 29 CBC With Electronic Diff Stat 11/20/2008 White Blood Count 5.5 CUMM 4.8- 10.8 Red Cell Count 4.32 CUMM 4.2-5.4 Hemoglobin 13.4 g/dL 12.0-16.0 Hematocrit 39 % 35-47 Mean Corpuscular Volume 91 um3 79-97 Mean Corpuscular Hemoglob 31 pg 27-31 Mean Corpuscular HGB Cone 34 g/dL 32-36 Redcell Distribution WDTH 12 % 10.5-15 Platelet Count 241 CUMM 150-450 Mean Platelet Volume 9.1 um3 7.4-10.4 Gran % 42.3 % 38-83 Lymph % 43.8 % 25-47 Mononuclear % 6.7 % 1-9 Eosinophil % 6.1 % High 0-6 Basophil % 1.1 % 0-2 Abs Lymphs 2.4 1.0-4.8 Abs Mononuclear 0.4 0-0.8 Absolute Neutrophil Count 2.3 1.5-7.7 Abs Eosinophils 0.3 0-0.6 Abs Basophils 0.1 0-0.2 PTT (Aptt) Stat 11/20/2008 PTT (Aptt) 22.2 20.1-28.2 30 Laboratory test finding 11/20/2008 Troponin-I (TnI) 0.01 NG/ML 31 CBC With Electronic Diff Stat 07/16/2008 White Blood Count 6.4 CUMM 4.8- 10.8 Red Cell Count 4.63 CUMM 4.2-5.4 Hemoglobin 13.8 g/dL 12.0-16.0 Hematocrit 41 % 35-47 Mean Corpuscular Volume 88 um3 79-97 Mean Corpuscular Hemoglob 30 pg 27-31 Mean Corpuscular HGB Cone 34 g/dL 32-36 Redcell Distribution WDTH 13 % 10.5-15 Platelet Count 292 CUMM 150-450 Mean Platelet Volume 9.1 um3 7.4-10.4 Gran % 45.9 % 38-83 Lymph % 39.6 % 25-47 Mononuclear % 6.3 % 1-9 Eosinophil % 7.2 % High 0-6 Basophil % 1.0 % 0-2 Abs Lymphs 2.5 1.0-4.8 Abs Mononuclear 0.4 0-0.8 Absolute Neutrophil Count 2.9 1.5-7.7 Abs Eosinophils 0.5 0-0.6 Abs Basophils 0.1 0-0.2 Urine Culture Sensitivity 07/16/2008 Urine Culture Sensitivi NG 32 Urinalysis W/Microscopic Stat 07/16/2008 Ua Color YELLOW Appearance-Urine CLEAR Specific [place]-Ur 1.008 Low 1.010-1.030 Esterase-Urine 1+ Negative Nitrite NEGATIVE Negative [id number] NEGATIVE Negative Protein-Urine NEGATIVE Negative PH-Urine 6.5 5-9 Blood-Urine NEGATIVE Negative Ketones-Urine NEGATIVE Negative Bilirubin-Ur NEGATIVE Negative Glucose-Urine NEGATIVE Negative WBC-Urine 2-5 0-5 RBC-Urine 2-5 0-2 Epith Cells-Ur FEW Comp Stat 07/16/2008 Sodium 137 mmol/L 135-145 Potassium 4.3 mmol/L 3.5-5.0 Chloride 102 mmol/L 101-111 Co2 (Carbon Dioxide) 27.0 mmol/L 22-32 Anion Gap 8.0 mmol/L 2-11 33 Glucose 108 mg/dL High 70-100 34 BUN 19 mg/dL 6-24 Creatinine 0.90 mg/dL 0.50-1.40 One Over Creatinine 1.10 BUN/Creatinine Ratio 21.1 High 8-20 Calcium 9.2 mg/dL 8.1-9.9 35 Total Protein 6.5 GM/DL 6.2-8.1 Albumin 3.9 GM/DL 3.2-5.2 Globulin 2.6 GM/DL 2-4 Albumin/Globulin Ratio 1.5 1-3 Bilirubin Total 0.7 mg/dL 0.4-1.5 Alkaline Phosphatase 88 U/L 30-110 Alt (SGPT) 18 U/L 14-54 Ast (Sgot) 23 U/L 12-42 Laboratory test finding 07/16/2008 Troponin-I (TnI) 0.03 NG/ML 0-0.06 36 TSH 4.37 MIU/ML 0.34-5.60 Urinalysis Stat 07/16/2008 Ua Color YELLOW Appearance-Urine CLEAR Specific [place]-Ur 1.008 Low 1.010-1.030 Esterase-Urine 1+ Negative Nitrite NEGATIVE Negative [id number] NEGATIVE Negative Protein-Urine NEGATIVE Negative PH-Urine 6.5 5-9 Blood-Urine NEGATIVE Negative Ketones-Urine NEGATIVE Negative Bilirubin-Ur NEGATIVE Negative Glucose-Urine NEGATIVE Negative Basic Metabolic Panel 09/29/2006 One Over Creatinine 0.90 Anion Gap 5.0 mmol/L 2-11 37 BUN 21 mg/dL 6-24 Calcium 9.4 mg/dL 8.7-10.2 Chloride 105 mmol/L 101-111 Co2 (Carbon Dioxide) 29.0 mmol/L 22-32 Glucose 85 mg/dL 70-105 Potassium 4.1 mmol/L 3.5-5.0 Sodium 139 mmol/L 135-145 BUN/Creatinine Ratio 19.1 8-20 Creatinine 1.1 mg/dL 0.5-1.4 Laboratory test finding 09/20/2006 Magnesium 2.1 mg/dL 1.7-2.6 Basic Metabolic Panel 09/20/2006 One Over Creatinine 1.00 Anion Gap 3.0 mmol/L 2-11 38 BUN 16 mg/dL 6-24 Calcium 9.3 mg/dL 8.7-10.2 Chloride 106 mmol/L 101-111 Co2 (Carbon Dioxide) 30.0 mmol/L 22-32 Glucose 100 mg/dL 70-105 Potassium 4.1 mmol/L 3.5-5.0 Sodium 139 mmol/L 135-145 BUN/Creatinine Ratio 16.0 8-20 Creatinine 1.0 mg/dL 0.5-1.4 Laboratory test finding 09/20/2006 Phosphorus 3.4 mg/dL 2.4-4.7 Hemoglobin A1c 5.9 % <6.0 39 Laboratory test 09/04/2006 [facility] [place] Labs CMP;TROP;CBC See Image finding Report Laboratory test 10/13/2005 [facility] [place] Labs BMP;PHOS;MAG;TRIG; See Image finding Report Laboratory test 05/11/2005 [employer] ABO TYPE 40, 41 finding <SEE NOTE> RH Factor RH TYPE <SEE NOTE> 40, 42 Laboratory test 05/11/2005 RH Factor RH TYPE 43, 44 finding <SEE NOTE> Laboratory test 04/26/2005 [facility] [place] Labs BMP;CK;CK FOR See Image Report finding CKMB; Ua - Micro (a New) 03/24/2005 Appearance CLEAR Color LIGHT YELLOW Glucose NEGATIVE Bilirubin NEGATIVE Ketones NEGATIVE SP Grav 1.010 Blood NEGATIVE PH 8.0 Protein NEGATIVE Urobil 0.2 Nitrite NEGATIVE Leukocytes TRACE Hyaline - /Lpf Granular - /Lpf WBC'S 5-7 RBC'S - Mucus - /Lpf Epith MODERATE AMOUNT Bacteria TRACE Amorphous - /Lpf Crystals - /Lpf Z#Comments - Lipid Profile (a) Female 03/24/2005 Cholesterol 225 mg/dL High 120-200 Triglyceride 153 mg/dL 30-200 HDL-Chol 47 mg/dL 30-85 LDL, Calculated (a/[facility] [place]) 148 CALC High 0-129 LDL Direct (/[facility]) - mg/dL 0-130 VLDL 31 0-50 HDL Risk Factor (Fma) 4.8 CALC 4.2-7.0 Laboratory test finding 03/24/2005 Anti Viral AB Screen Negative 45 Hep B Surface Antibody NEGATIVE Negative Hep C Abs 03/24/2005 Hep C Antibody NEGATIVE Negative Laboratory test finding 09/16/2004 C-Reactive Protein 0.6 mg/dL High 0.0- 0.5 Lipid Profile ([facility]) 09/03/2004 Triglyceride 183 mg/dL 40-200 Cholesterol (a/[facility]) 240 mg/dL High <200 HDL-Chol 60 40-60 Cholesterol / HDL Ratio 4.00 AVG 1-4.97 LDL, Calculated ([facility]) 143 High 1-130 Ua - Non Micro ([facility]) 07/08/2003 Appearance CLEAR Color YELLOW Glucose, Urine (a/[facility]/CTX) NEGATIVE Bilirubin NEGATIVE Ketones 1+ SP Grav 1.020 Blood NEGATIVE PH 7.0 Protein NEGATIVE Urobil 1.0 E.U./dL Nitrite NEGATIVE Leukocytes ([facility]) NEGATIVE Comp Metabolic ([facility]) 01/03/2003 Sodium 142 mmol/L 135-145 Potassium 4.0 mmol/L 3.5-5.0 Chloride 106 mmol/L 101-111 Co2 30.0 mmol/L 22-32 Glucose, Serum (a/[facility]/CTX) 83 mg/dL 70-105 BUN (a/[facility]) 15 mg/dL 6-24 Creatinine (a/[facility]/CTX) 1.0 mg/dL 0.5-1.4 BUN/Creatinin Ratio 15.0 8-20 Calcium (a/[facility]) 10.1 mg/dL 8.7-10.2 Total Protein 6.7 GM/DL 6.2-8.1 Albumin ([facility]) 3.7 3.6-5.4 Globulin 3.0 2-4 A/G Ratio (a/[facility]) 1.2 1-3 Bilirubin, Total 0.8 mg/dL 0.4-1.5 Alkaline Phosphatase (F/C/CTX) 50 U/L 30-110 Alt (SGPT) (a/[facility]) 17 14-54 Ast (Sgot) ([facility]) 21 12-42 Laboratory test finding 01/03/2003 Anion Gap 6.0 2-11 LDH 119 95-185 CBC Electronic ([facility]) 01/03/2003 WBC 4.9 CUMM 4.8-10.8 RBC 3.85 CUMM Low 4.2-5.4 Hemoglobin (Fma/[facility]/CTX) 12.5 g/dL 12.0-16.0 Hematocrit (Fma/[facility]/CTX) 35 % 35-47 Mean Corpuscular Vol 90 UM3 79-97 Mean Corpuscular Hemaglobin 32 pg High 27-31 Mean Corpuscular Hemo Concen 36 g/dL 32-36 RDW 12 10.5-15 Platelets 261 CUMM 150-450 Mean Platelet Volume 8.8 7.4-10.4 Granulocytes 56.6 % 38-83 Lymphocytes 32.7 % 20-45 Monocytes 5.6 % 1-9 Eosinophil 4.6 0-6 Basophil% 0.5 0-2 Abs Lymphs 1.6 1.0-4.8 Abs Mononuclear 0.3 0-0.8 Abs Grans 2.8 1.5-7.7 Abs Eosinophils 0.2 0-0.6 Abs Basophils 0 0-0.2 Laboratory test finding 01/03/2003 Ca27.29 [place] 18.1 0-37.9 CBC With Diff (Fma) 04/21/2001 WBC 8.8 3.6-9.6 Lymphocytes 21.3 % 20.5 - 51.1 Monocytes 3.7 % 1.7-9.3 Granulocytes 75.0 % 42.2 - 75.2 Lymphocytes 1.9 10^3/uL 0.7 - 4.9 Monocytes 0.3 10^3/uL 0.1 - 0.9 Granulocytes 6.6 10^3/uL 1.5 - 7.2 RBC 3.98 3.90-5.70 Hemoglobin 12.5 g/dL 12.1 - 17.2 Hematocrit 35.7 % Low 36.1 - 50.3 Mean Corpuscular Vol 89.9 82.2-97.4 Mean Corpuscular Hemaglobin 31.5 27.6-33.3 Mean Corpuscular Hemo Concen 35.1 High 33.0-34.8 RDW 11.4 Low 11.6-13.7 Platelets 334. 10^3/ul 150-400 Mean Platelet Volume 8.5 7.4-10.4 Laboratory test finding 09/12/2000 Anisocytosis SLIGHT Fma-CBC With Manual Dif 09/12/2000 WBC 7.6 3.6-9.6 RBC 3.97 3.90-5.70 Hemoglobin 12.8 g/dL 12.1 - 17.2 Hematocrit 37.1 % 36.1 - 50.3 Mean Corpuscular Vol 93.5 82.2-97.4 Mean Corpuscular Hemaglobin 32.3 27.6-33.3 Mean Corpuscular Hemo Concen 34.5 33.0-34.8 RDW 11.7 11.6-13.7 Platelets 273 10^3/ul 150-400 Mean Platelet Volume 12.1 High 7.4-10.4 Neutrophils 64 Band 3 Lymph From [facility] 28 Monocytes 2 % Eosinophils 3 Basophils - Metamyelocytes - Myelocytes - Promyelocyte - Blast - Atypical Lymph - NRBC - Morphology - Comments - 1 NON-FASTING 2 1 sst 3 [place] Severe Sepsis and Septic Shock Management Bundle Measure requires all lactic acids initially measuring >2.0 mmol/L be repeated. 4 SEE RESULT BELOW Name: MARIA ELENA BRYAN : [address]: Preston Diane MD Acct: [id number] Unit: [id number] AGE: 74 Location: ENDO Re10/09/14 SEX: F Status: REG REF SPEC: [id number] [place]: 10/09/14-[address] [facility] [address]: Preston Diane MD REQ: [id number] RECD: [id number] STATUS: ODILON HAZEL DR: Anil Vargas MD _ ORDERED: LEVEL IV FINAL DIAGNOSIS Colon, hepatic flexure, biopsies: -- Tubular adenomas (2). -- No high grade dysplasia or malignancy. CLINICAL HISTORY Screening colonoscopy POST-OPERATIVE DIAGNOSIS Screening colonoscopy into terminal ileum, prep fair - 2 small hepatic flexure polyps removed GROSS DESCRIPTION The specimen is received in formalin labeled, Biopsy Hepatic Flexure Polyp, and consists of two barnett irregular soft tissue fragments averaging 0.4 x 0.3 x 0.2 cm, which are submitted entirely in one cassette. Signed (signature on file) Cinda Tomas MD 04/15 1050 END OF REPORT * ML=Testing performed at Main Lab DEPARTMENT OF PATHOLOGY, [address] [place] [address] Anjel Segura M.D. Director [facility] # [id number] RUN DATE: 08/08/14 [facility] LAB LIVE PAGE 1 RUN TIME: 1035 [facility] [place], [place] [address] Specimen Inquiry Name: MARIA ELENA BRYAN : [address]: Ashley Smallwood MD Acct: [id number] Unit: [id number] AGE: 73 Location: [facility] Re08/06/14 SEX: F Status: DEP ER SPEC: [id number] JACKSON: 08/06/14-[address]: Ashley Smallwood MD REQ: [id number] RECD: 08/06/14-152 STATUS: COMP ILIR DR: Anil Vargas MD _ SOURCE: URINE SPDESC: ORDERED: Urine Culture Procedure Result Verified Site Urine Culture Final 08/08/14- 1035 ML No Growth Day 2 (<1,000 CFU/mL) * ML - MAIN LAB ([facility]) . END OF REPORT * ML=Testing performed at Main Lab DEPARTMENT OF PATHOLOGY, [address] [place] [address] Anjel Segura M.D. Director [facility] # [id number] 6 Because ethnic data is not always readily available, this report includes an eGFR for both -Americans and non- Americans. The National Kidney Disease Education Program (NKDEP) does not endorse the use of the MDRD equation for patients that are not between the ages of 18 and 70, are , have extremes of body size, muscle mass, or nutritional status, or are non- or non-. According to the National Kidney Foundation, irrespective of diagnosis, the stage of the disease is based on the level of kidney function: Stage Description GFR(mL/min/1.73 m(2)) 1 Kidney damage with normal or decreased GFR 90 2 Kidney damage with mild decrease in GFR 60-89 3 Moderate decrease in GFR 30-59 4 Severe decrease in GFR 15-29 5 Kidney failure <15 (or dialysis) 7 RUN DATE: 07/07/14 [facility] LAB LIVE PAGE 1 RUN TIME: [address] [place] [address] Specimen Inquiry Name: OSIELMARIA ELENA CONTRERAS : [address]: Charlie Funk MD Acct: [id number] Unit: [id number] AGE: 73 Location: [facility] Re07/05/14 SEX: F Status: DEP ER SPEC: [id number] JACKSON: 07/05/14-[address]: Lawanda Iglesias NP REQ: [id number] RECD: 07/05/14 STATUS: MISTY HAZEL DR: Anil Funk MD _ SOURCE: URINE SPDESC: ORDERED: Urine Culture Procedure Result Verified Site Urine Culture Final 07/07/14- 932 L Organism 1 ESCHERICHIA COLI [place] Count >100,000 (Many) CFU/ML Organism 2 NORMAL JASPREET [place] Count 1-10,000 (Few) CFU/ML CONTINUED ON NEXT PAGE RUN DATE: 07/07/14 [facility] LAB LIVE PAGE 2 RUN TIME: [address] [place] [address] Specimen Inquiry Patient: MARIA ELENA BRYAN [id number] (Continued) Specimen: [id number] Collected: 07/05/14 Received: 07/05/14 (Continued) Procedure Result Verified Site * ML=Testing performed at Main Lab DEPARTMENT OF PATHOLOGY, [address] [place] [address] Anjel Segura M.D. Director [facility] # [id number] RUN DATE: 07/07/14 [facility] LAB LIVE PAGE 3 RUN TIME: [address] [place] [address] Specimen Inquiry Patient: MARIA ELENA BRYAN [id number] (Continued) Specimen: [id number] Collected: 07/05/14 Received: 07/05/14 (Continued) Procedure Result Verified Site Urine Culture Final (continued) 07/07/14932 1. ESCHERICHIA COLI M.I.C. RX --------- ------ Ampicillin >=32 R Cefazolin <=4 S Cefepime <=1 S Ceftriaxone <=1 S Ciprofloxacin <=0.25 S Gentamicin <=1 S Levofloxacin <=0.12 S Meropenem <=0.25 S Nitrofurantoin <=16 S Tetracycline <=1 S Pipercillin/Tazobactam <=4 S Trimethoprim/Sulfamethoxazole <=20 S Amoxicillin/Clavulanic Acid 8 S Aztreonam <=1 S Contact the Microbiology Department for any additional antibiotic reporting. END OF REPORT * ML=Testing performed at Main Lab DEPARTMENT OF PATHOLOGY, [address] [place] [address] Anjel Segura M.D. Director [facility] # [id number] 8 Because ethnic data is not always readily available, this report includes an eGFR for both -Americans and non- Americans. The National Kidney Disease Education Program (NKDEP) does not endorse the use of the MDRD equation for patients that are not between the ages of 18 and 70, are , have extremes of body size, muscle mass, or nutritional status, or are non- or non-. According to the National Kidney Foundation, irrespective of diagnosis, the stage of the disease is based on the level of kidney function: Stage Description GFR(mL/min/1.73 m(2)) 1 Kidney damage with normal or decreased GFR 90 2 Kidney damage with mild decrease in GFR 60-89 3 Moderate decrease in GFR 30-59 4 Severe decrease in GFR 15-29 5 Kidney failure <15 (or dialysis) 9 SDS 03/05 10 PREADMISSION TESTING SAMPLES FOR BLOOD BANK WILL BE HELD FOR 14 DAYS FROM THE DATE OF COLLECTION *IF* THE FOLLOWING CRITERIA ARE MET: 1) THE PATIENT HAS *NOT* BEEN IN THE LAST 3 MONTHS. 2) THE PATIENT HAS *NOT* BEEN TRANSFUSED IN THE LAST 3 MONTHS. PREADMISSION TESTING SAMPLES WILL *NOT* BE HELD FOR 14 DAYS FROM PATIENTS WHO IN THE LAST 3 MONTHS: 1) HAVE BEEN 2) HAVE BEEN TRANSFUSED THESE PATIENTS *MUST* BE COLLECTED WITHIN 3 DAYS OF THE SURGERY DATE. 11 Anion gap measurement may be of limited value in the presence of any alkalosis, especially in a combined acid base disorder. . 12 Note change in reference range as of 12/21/07. The change was based on recommendations from the [place] [employer]. 13 Because ethnic data is not always readily available, this report includes an eGFR for both -Americans and non- Americans. The National Kidney Disease Education Program (NKDEP) does not endorse the use of the MDRD equation for patients that are not between the ages of 18 and 70, are , have extremes of body size, muscle mass, or nutritional status, or are non- or non-. According to the National Kidney Foundation, irrespective of diagnosis, the stage of the disease is based on the level of kidney function: Stage Description GFR(mL/min/1.73 m(2)) 1 Kidney damage with normal or decreased GFR 90 2 Kidney damage with mild decrease in GFR 60-89 3 Moderate decrease in GFR 30-59 4 Severe decrease in GFR 15-29 5 Kidney failure <15 (or dialysis) 14 New Reference Range and Interpretation effective 02/02/2002 TnI (ng/ml) INTERPRETATION Less Than 0.06 ng/mL NOT SUPPORTIVE OF DIAGNOSIS OF [place] 0.06 - 0.50 ng/ml INDETERMINATE: SUGGEST SERIAL STUDIES IF CLINICALLY INDICATED. Greater than 0.5 ng/mL CONSISTENT WITH DIAGNOSIS OF [place] . 15 Anion gap measurement may be of limited value in the presence of any alkalosis, especially in a combined acid base disorder. . 16 Note change in reference range as of 12/21/07. The change was based on recommendations from the [place] [employer]. 17 A metabolite of Naproxen, O-desmethylnaproxen, has been shown to interfere with the [place] method for measuring total bilirubin. Samples from patients who have taken Naproxen have shown spurious elevation in total bilirubin levels. 18 Because ethnic data is not always readily available, this report includes an eGFR for both -Americans and non- Americans. The National Kidney Disease Education Program (NKDEP) does not endorse the use of the MDRD equation for patients that are not between the ages of 18 and 70, are , have extremes of body size, muscle mass, or nutritional status, or are non- or non-. According to the National Kidney Foundation, irrespective of diagnosis, the stage of the disease is based on the level of kidney function: Stage Description GFR(mL/min/1.73 m(2)) 1 Kidney damage with normal or decreased GFR 90 2 Kidney damage with mild decrease in GFR 60-89 3 Moderate decrease in GFR 30-59 4 Severe decrease in GFR 15-29 5 Kidney failure <15 (or dialysis) 19 Anion gap measurement may be of limited value in the presence of any alkalosis, especially in a combined acid base disorder. . 20 Note change in reference range as of 12/21/07. The change was based on recommendations from the [place] [employer]. 21 Please note change in reference range effective 07 . 22 Because ethnic data is not always readily available, this report includes an eGFR for both -Americans and non- Americans. The National Kidney Disease Education Program (NKDEP) does not endorse the use of the MDRD equation for patients that are not between the ages of 18 and 70, are , have extremes of body size, muscle mass, or nutritional status, or are non- or non-. According to the National Kidney Foundation, irrespective of diagnosis, the stage of the disease is based on the level of kidney function: Stage Description GFR(mL/min/1.73 m(2)) 1 Kidney damage with normal or decreased GFR 90 2 Kidney damage with mild decrease in GFR 60-89 3 Moderate decrease in GFR 30-59 4 Severe decrease in GFR 15-29 5 Kidney failure <15 (or dialysis) 23 Recommended INR for Patients on Oral Anticoagulants Prophylaxis 2.0 - 3.0 Treatment of thrombosis 2.0 - 3.0 Prevention of embolism 2.0 - 3.0 Prevention of embolism from prosthetic heart valves 2.5 - 3.5 24 ATTENTION EFFECTIVE 09/11/08, THE IMPLEMENTATION OF NEW COAGULATION ANLAYZERS HAS CAUSED A SIGNIFICANT DIFFERENCE FOR PROTIME RESULTS IN SECONDS. THEREFORE, DIAGNOSIS,TREATMENT,AND THERAPY MUST BE BASED ON THE INR VALUE ONLY. 25 Anion gap measurement may be of limited value in the presence of any alkalosis, especially in a combined acid base disorder. . 26 Note change in reference range as of 12/21/07. The change was based on recommendations from the [place] [employer]. 27 Please note change in reference range effective 07 . 28 A metabolite of Naproxen, O-desmethylnaproxen, has been shown to interfere with the [place]-Central [place] method for measuring total bilirubin. Samples from patients who have taken Naproxen have shown spurious elevation in total bilirubin levels. 29 Because ethnic data is not always readily available, this report includes an eGFR for both -Americans and non- Americans. The National Kidney Disease Education Program (NKDEP) does not endorse the use of the MDRD equation for patients that are not between the ages of 18 and 70, are , have extremes of body size, muscle mass, or nutritional status, or are non- or non-. According to the National Kidney Foundation, irrespective of diagnosis, the stage of the disease is based on the level of kidney function: Stage Description GFR(mL/min/1.73 m(2)) 1 Kidney damage with normal or decreased GFR 90 2 Kidney damage with mild decrease in GFR 60-89 3 Moderate decrease in GFR 30-59 4 Severe decrease in GFR 15-29 5 Kidney failure <15 (or dialysis) 30 PLEASE NOTE NEW REFERENCE RANGE EFFECTIVE 07. 31 New Reference Range and Interpretation effective 02/02/2002 TnI (ng/ml) INTERPRETATION Less Than 0.06 ng/mL NOT SUPPORTIVE OF DIAGNOSIS OF [place] 0.06 - 0.50 ng/ml INDETERMINATE: SUGGEST SERIAL STUDIES IF CLINICALLY INDICATED. Greater than 0.5 ng/mL CONSISTENT WITH DIAGNOSIS OF [place] . 32 FINAL: NO GROWTH DAY 2 (<1,000 CFU/mL) 33 Anion gap measurement may be of limited value in the presence of any alkalosis, especially in a combined acid base disorder. . 34 Note change in reference range as of 12/21/07. The change was based on recommendations from the [place] [employer]. 35 Please note change in reference range effective 07 . 36 New Reference Range and Interpretation effective 02/02/02 TnI (ng/ml) INTERPRETATION <0.06 ng/ml NOT SUPPORTIVE OF DIAGNOSIS OF [place] 0.06 - 0.50 ng/ml INDETERMINATE: SUGGEST SERIAL STUDIES IF CLINICALLY INDICATED. > 0.5 ng/ml CONSISTENT WITH DIAGNOSIS OF [place] . 37 Anion gap measurement may be of limited value in the presence of any alkalosis, especially in a combined acid base disorder. . 38 Anion gap measurement may be of limited value in the presence of any alkalosis, especially in a combined acid base disorder. . 39 THERAPEUTIC TARGET FOR THE TREATMENT OF DIABETES MELLITUS PATIENTS IS <7% HBA1C, AND IN SELECTIVE PATIENTS <6.0%. PLEASE REFER TO [place] [employer] DIABETIC CARE GUIDELINES FOR FURTHER INFORMATION. 40 ?1 LAV TOP TUBE 41 ABO TYPE O 05/12/05 03:16 CASSIE 42 RH TYPE POS 05/17/05 12:50 DMB1 @05/17/05 12:49 by DMB1: 43 LAB: ADD TO [id number] LAB: ADD TO SPECIMEN COLLECT [id number] 44 RH TYPE POS 05/18/05 06:43 LB 45 Negative: Non-reactive by EIA Positive: Repeatedly reactive by EIA. Refer to Western Blot confirmatory test for final interpretation. . Physician should school adjustment counselor the patient about result significance. Patient information should be kept strictly confidential. Procedures Date CPT Code Description Status 04/07/2017 74622 Finger Or Heel Stick Completed 03/08/2017 12300 Finger Or Heel Stick Completed 02/14/2017 83316 Finger Or Heel Stick Completed 01/31/2017 85182 Finger Or Heel Stick Completed 12/29/2016 06039 Finger Or Heel Stick Completed 11/30/2016 20815 Finger Or Heel Stick Completed 11/16/2016 57293 Finger Or Heel Stick Completed 10/25/2016 65404 Finger Or Heel Stick Completed 10/12/2016 63826 Finger Or Heel Stick Completed 09/23/2016 90237 Finger Or Heel Stick Completed 09/11/2016 15288 Finger Or Heel Stick Completed 08/30/2016 76681 Finger Or Heel Stick Completed 08/16/2016 96008 Finger Or Heel Stick Completed 06/29/2016 09244 Finger Or Heel Stick Completed 06/10/2016 43579 Finger Or Heel Stick Completed 04/14/2016 40629 Finger Or Heel Stick Completed 04/09/2016 20160 Finger Or Heel Stick Completed 04/01/2016 Mammogram Completed 02/21/2016 63072 Finger Or Heel Stick Completed 01/29/2016 40627 Finger Or Heel Stick Completed 10/29/2015 32080 Finger Or Heel Stick Completed 09/09/2015 97616 Finger Or Heel Stick Completed 08/14/2015 53959 Finger Or Heel Stick Completed 07/08/2015 65065 Finger Or Heel Stick Completed 05/06/2015 34030 Finger Or Heel Stick Completed 03/31/2015 Mammogram Completed 03/11/2015 84230 Finger Or Heel Stick Completed 02/25/2015 53319 Finger Or Heel Stick Completed 02/11/2015 68422 Finger Or Heel Stick Completed 12/30/2014 20072 Finger Or Heel Stick Completed 12/03/2014 20051 Finger Or Heel Stick Completed 10/17/2014 68331 Finger Or Heel Stick Completed 10/09/2014 Colonoscopy Completed 09/27/2014 38519 Finger Or Heel Stick Completed 09/16/2014 44038 Finger Or Heel Stick Completed 08/13/2014 46366 Finger Or Heel Stick Completed 07/31/2014 56730 Finger Or Heel Stick Completed 07/15/2014 09995 Finger Or Heel Stick Completed 07/10/2014 15416 Finger Or Heel Stick Completed 07/08/2014 31234 Finger Or Heel Stick Completed 06/17/2014 29394 Finger Or Heel Stick Completed 06/12/2014 89825 Finger Or Heel Stick Completed 06/10/2014 73912 Finger Or Heel Stick Completed 03/19/2014 90199 Finger Or Heel Stick Completed 01/18/2014 66605 Finger Or Heel Stick Completed 01/03/2014 94004 Finger Or Heel Stick Completed 11/21/2013 91225 Finger Or Heel Stick Completed 11/06/2013 23872 Finger Or Heel Stick Completed 09/04/2013 75133 Finger Or Heel Stick Completed 08/03/2013 15643 Finger Or Heel Stick Completed 06/11/2013 86304 Finger Or Heel Stick Completed 04/19/2013 23436 Finger Or Heel Stick Completed 03/12/2013 40674 Finger Or Heel Stick Completed 02/21/2013 26840 Finger Or Heel Stick Completed 01/24/2013 05612 Finger Or Heel Stick Completed 01/10/2013 78744 Finger Or Heel Stick Completed 12/29/2012 81315 Finger Or Heel Stick Completed 12/01/2012 24123 Finger Or Heel Stick Completed 11/28/2012 20790 Finger Or Heel Stick Completed 11/01/2012 49870 Finger Or Heel Stick Completed 09/15/2012 40382 Finger Or Heel Stick Completed 08/16/2012 41193 Finger Or Heel Stick Completed 07/26/2012 37644 Finger Or Heel Stick Completed 07/04/2012 66342 Finger Or Heel Stick Completed 06/21/2012 50964 Finger Or Heel Stick Completed 06/06/2012 79080 Finger Or Heel Stick Completed 05/09/2012 18131 Finger Or Heel Stick Completed 04/27/2012 20301 Finger Or Heel Stick Completed 04/22/2012 44858 Finger Or Heel Stick Completed 04/19/2012 91212 Pulse Oximetry Completed 04/17/2012 11092 Finger Or Heel Stick Completed 02/26/2012 57307 Finger Or Heel Stick Completed 01/20/2012 10700 Finger Or Heel Stick Completed 12/15/2011 54388 Finger Or Heel Stick Completed 10/28/2011 Bone Mineral Density Test Completed 10/28/2011 Mammogram Completed 10/27/2011 18499 Finger Or Heel Stick Completed 10/06/2011 17756 Finger Or Heel Stick Completed 09/22/2011 62164 Finger Or Heel Stick Completed 09/08/2011 37239 Finger Or Heel Stick Completed 08/12/2011 28293 Finger Or Heel Stick Completed 06/11/2011 85023 Finger Or Heel Stick Completed 05/12/2011 46373 Finger Or Heel Stick Completed 02/23/2011 47450 Finger Or Heel Stick Completed 01/29/2011 16748 Finger Or Heel Stick Completed 12/22/2010 10203 Finger Or Heel Stick Completed 11/26/2010 57049 Finger Or Heel Stick Completed 11/03/2010 88860 Finger Or Heel Stick Completed 10/20/2010 82926 Finger Or Heel Stick Completed 10/08/2010 32593 Finger Or Heel Stick Completed 10/01/2010 41932 Finger Or Heel Stick Completed 03/23/2010 Mammogram Completed 03/19/2008 Mammogram Completed 01/26/2006 Mammogram Completed Encounters Type Date Location Provider CPT E/M Dx Office Visit 04/13/2017 8:45a [place] [address] J02.9 Office Visit 02/10/2017 3:10p [facility] Anil Vargas M.D. 36121 I48.0 R68.83 B02.29 R03.0 Office Visit 02/01/2017 10:00a Main Office Nannette Pathak M.D. 53090 B02.29 K21.9 R03.0 Office Visit 09/30/2016 10:10a [facility] Anil Vargas M.D. 30912 B02.29 Office Visit 08/31/2016 3:00p Main Office Anil Vargas M.D. 90992 M79.2 G50.1 Office Visit 06/10/2016 3:40p Main Office Rober Grayson M.D. 50628 I48.0 J06.9 Office Visit 04/06/2016 9:00a Main Office Rober Grayson M.D. 56871 J06.9 J45.998 I48.0 Z79.01 Office Visit 09/09/2015 11:00a Main Office Charlee Palmer M.D. 38303 R30.0 Z79.01 I48.0 Office Visit 12/30/2014 9:50a [facility] Charlee Palmer M.D. 62562 465.9 v58.61 427.31 Office Visit 06/20/2014 1:45p Main Office Lawanda SilvaHerminio-C 13451 079.99 Office Visit 06/17/2014 4:20p Main Office Anil Vargas M.D. 28235 E906.4 493.90 465.9 719.45 V41.6 V58.61 427.31 Office Visit 06/10/2014 8:45a [facility] Cinda ArmstrongbhartROXY 65606 E906.4 782.9 V58.61 427.31 913.4 Office Visit 01/26/2014 11:30a Main Office Anil Vargas M.D. 99010 892.0 v06.5 E920.4 E016.1 Office Visit 02/06/2013 6:40p Main Office Anil Vargas M.D. 70630 719.46 427.31 493.90 174.8 V72.83 Office Visit 11/28/2012 10:10a Main Office Anil Vargas M.D. 94528 719.46 726.10 427.31 V58.61 Office Visit 04/19/2012 3:00p [facility] Roverto Arana M.D. 90374 466.0 Office Visit 01/21/2012 1:15p Main Office ROXY Bang 43013 386.31 Office Visit 11/19/2011 3:15p [facility] Lawanda SilvaVivekC 15962 524.60 Office Visit 11/12/2011 1:20p Main Office Anil Vargas M.D. 01044 873.8 V58.61 V58.32 Office Visit 02/17/2011 6:20p Main Office Shahid Richter M.D. 54656 883.0 E824.9 Office Visit 12/22/2010 9:40a Main Office Anil Vargas M.D. 31457 427.31 V58.61 493.90 477.9 Office Visit 06/12/2010 2:40p Main Office Shahid Richter M.D. 51581 465.9 Office Visit 01/27/2010 10:40a Main Office Rober Grayson M.D. 85626 789.00 Office Visit 01/07/2010 11:20a Main Office Shahid Richter M.D. 00472 427.31 V77.0 Office Visit 05/20/2009 7:50p Main Office Rober Grayson M.D. 99451 461.9 Office Visit 04/08/2009 10:30a [facility] Kareen Molina 67251 465.9 Office Visit 02/19/2009 10:30a [facility] ROXY Bang 60659 726.10 Office Visit 05/17/2008 9:45a Main Office Kareen Molina 57702 692.9 Office Visit 06/10/2006 1:30p [place] [address] 466.0 307.81 Office Visit 05/24/2006 4:30p Main Office ROXY Bang 04091 466.0 Office Visit 05/09/2006 12:00p Main Office Anil Vargas M.D. 65707 465.9 466.0 493.90 Office Visit 05/04/2006 2:45p [facility] Herminio Joseph-C 07479 478.9 Office Visit 10/08/2005 3:15p Main Office Anil Vargas M.D. 54928 959.5 Office Visit 10/04/2005 1:10p Main Office Anil Vargas M.D. 57402 842.00 272.4 427.31 733.90 Office Visit 03/24/2005 8:40a Main Office Anil Vargas M.D. 10383 791.7 477.9 493.90 272.4 V74.1 Office Visit 09/16/2004 8:50a Main Office Anil Vargas M.D. 56035 719.47 272.4 Office Visit 08/18/2004 3:00p [facility] Reji Esteban M.D. 23857 708.9 Office Visit 04/08/2004 3:00p Main Office Kareen Molina 69018 112.1 V03.82 Office Visit 07/08/2003 3:20p Main Office Anil Vargas M.D. 74887 729.81 477.9 493.90 V70.0 Office Visit 06/10/2003 8:00p Main Office Anil Vargas M.D. 58800 706.2 Office Visit 04/19/2003 4:30p [facility] Kareen Joseph 88665 461.0 Office Visit 02/04/2003 11:50a Main Office Anil Vargas M.D. 58407 719.47 388.70 Office Visit 02/07/2002 8:40a Main Office Anil Vargas M.D. 27769 Office Visit 04/21/2001 10:20a Main Office Anjel Dumont M.D. 73397 Office Visit 04/14/2001 10:15a [facility] ROXY Bang 09325 Office Visit 04/11/2001 1:10p Main Office Anil Vargas M.D. 62636 Office Visit 09/12/2000 2:15p [facility] aKreen Molina 22800 Office Visit 08/26/2000 1:40p Main Office Roverto Arana M.D. 89774 Office Visit 06/10/2000 2:00p Main Office Anjel Dumont M.D. 06825 Office Visit 05/31/2000 11:40a Main Office Anjel Dumont M.D. 70382 Office Visit 03/10/2000 10:00a [facility] Office Anil Vargas M.D. 16325 Plan of Care Future Appointment(s):06/27/2017 10:15 am - Anil Vargas M.D. 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 (Follow up)R68.83 Chills (without fever) I48.0 Paroxysmal atrial fibrillationFollow up:Followup:. (Follow up)AllComments: ~B_~U_Medication Management~b_~u_ Patient Understands medications she's taking? Yes No Are there Barriers to Adherence? Yes No Has the patient been asked about herbal supplements and therapies, and OTC meds? Yes No ~B_~U_Care Plan~b_~u_1. Patient has been queried about patient's goals/ preferences and functional/lifestyle goals at relevant visits. If relevant, describe:na2. Treatment goals as explained to the patient: abovesx observation 3. Are there barriers to meeting treatment goals? Yes No If Yes, please describe:4. Self-Management goals as described to the patient: Yes No there are no clinical findings to indicate a concern for flu mostl likely you may be coming down with a virus , time will tell continue to miniter sx and f/u if persist worsen
[2017-06-01] MEDS ORDERED: Potassium Chlor TAB* 40MEQ X 1 PRN K LEVEL PO (10:19)
[2017-06-01 11:47] LABS: EGFR Non-African American 62.1 (>60)
[2017-06-01] MEDS ORDERED: Dofetilide CAP* 125 MCG PO ONE (12:30)
[2017-06-01] MEDS: MAGNESIUM 500 MG PO SCH (18:17)
[2017-06-01] MEDS: Warfarin TAB(*) 5 MG PO SCH (18:22)
[2017-06-01] MEDS: VILANTEROL MDI INH SCH (18:23)
[2017-06-01] MEDS: MDI INH SCH (18:23)
[2017-06-01] MEDS: FLUTICASONE INH SCH (18:23)
[2017-06-01] MEDS: Potassium Chlor TAB* 20 MEQ TAB.ER PO SCH (20:55)
[2017-06-01] MEDS: DOFETILIDE 125 MCG PO SCH (23:24)
--- NOTE | 2017-06-02 00:36 | HP ---
CC: Dr. Vargas * HISTORY AND PHYSICAL: DATE OF ADMISSION: 06/01/17 HISTORY OF PRESENT ILLNESS: Maria Elena Bryan is a 76-year-old woman with a history of paroxysmal atrial fibrillation for quite a few years. She had been on flecainide for many years with good control, this medication had been chosen because her resting sinus rate is rather low. In 2017, the patient developed fatigue and chest discomfort and a followup stress test showed a significant drop in her blood pressure. There was no evidence of inducible ischemia, but I did discontinue her flecainide. She had subsequently developed herpes zoster. She subsequently was also found to have a dental abscess, which has subsequently been treated. In addition to being off flecainide, she is off Neurontin and off her antibiotics, but now having more episodes of paroxysmal atrial fibrillation, possible relationship to dehydration in the onset of this symptoms. The patient is being admitted for Tikosyn loading. PAST MEDICAL HISTORY: The patient has a past medical history of: 1. Paroxysmal atrial fibrillation. 2. Asthma. 3. Cold-induced mitral insufficiency (moderate). 4. Tricuspid regurgitation. 5. Macular degeneration. 6. Singles in 2017. MEDICATIONS: Outpatient medications include: 1. Coumadin. 2. Magnesium 250 mcg b.i.d. 3. Potassium chloride 40 mEq a day. 4. PreserVision. 5. QVAR 80 mcg/ACT 2 puffs b.i.d. 6. Vitamin B12. 7. Vitamin D3. 8. Zyrtec 10 mg a day p.r.n. ALLERGIES: TETRACYCLINE, BIAXIN, and SUDAFED. FAMILY HISTORY: Significant that she has a sister with a history of congestive heart failure and an arrhythmia that led to ablation and pacemaker, pulmonary hypertension ( 2016 soon after the above diagnoses). SOCIAL HISTORY: The patient is , retired, lives with her . Smoked for 1 year, quit many years ago. Drinks occasional wine. No history of recreational drug use. Exercises regularly. REVIEW OF SYSTEMS: Negative for fevers, chills, or sweats. No recent change in bowel or bladder habits. She denies any recent change in exercise capacity, although she has been afraid to exercise. No orthopnea, PND, recent chest pain , pressure, or heaviness. All other 14-point review of systems unremarkable. PHYSICAL EXAMINATION GENERAL: The patient is an older woman, appears comfortable, in no acute distress. VITAL SIGNS: She is 5 feet, weighs 128 pounds with a BMI of 25. Vitals on admission, blood pressure 119/57, she was in sinus rhythm with a pulse of 67, sats 96% on room air, and temperature 98.2. HEENT: Pupils are equal and round. Mucous membranes are moist. NECK: Without increased JVD appreciated. Good carotid pulses. No audible bruits. LUNGS: Clear with good effort. No wheezes, rales, or rhonchi. CORONARY: S1 and S2 regular without murmur heard today. ABDOMEN: Flat, active bowel sounds. Soft and nontender. No hepatosplenomegaly or masses. EXTREMITIES: Lower extremities free of edema and warm. DIAGNOSTIC STUDIES: A 12-lead ECG on admission at 10 this morning shows normal sinus rhythm 60 beats a minute, QRS axis 0. Normal AV and IV conduction times, corrected QT interval of 456 msec. LABORATORY DATA: Sodium 136, potassium 4.3, chloride 103, bicarb 26, BUN 18, creatinine 0.88, glucose 90, and magnesium 2.4. ASSESSMENT AND PLAN: In summary, Maria Elena Bryan is a 76-year-old woman with paroxysmal atrial fibrillation for which she becomes symptomatic. She is on chronic anticoagulation and since stopping her flecainide, she has had more frequent events. Maria Elena is being admitted for Tikosyn loading and we will start her on 125 mcg q.12 hours. We will otherwise leave her on her current medications and additional recommendations will be made pending her clinical course and response to the above treatments. [id number]/[facility] #: [id number] [facility]
--- NOTE | 2017-06-02 09:19 | PN ---
Subjective Date of Service: 06/02/17 - CC: palpitations. Interval History: The patient had her typical palpitations last night she has often when she lies down. Correlated with PVC's on the monitor. No other c/o. Medcation times discussed, want Zyrtec hs. Medications Active Medications: Cetirizine HCl (Zyrtec*) 10 mg PO 2100 [facility] PRN Reason: Protocol Dofetilide (Tikosyn Cap*) 125 mcg PO Q12H [facility] Last Admin: 06/01/17 23:24 Dose: 125 mcg Fluticasone/Vilanterol (Breo Ellipta Mdi 100/25(Nf)) 1 puff INH QPM [facility] Last Admin: 06/01/17 18:23 Dose: 1 puff Pto: Magnesium [ Essential Magnesium] 500 Mg 500 mg PO QPM [facility] Last Admin: 06/01/17 18:17 Dose: Not Given Pharmacy Profile Note (Coumadin Daily Reminder*) 0 note FOLLOW UP 1700 [facility] Last Admin: 06/01/17 18:22 Dose: 1 note Potassium Chloride (Klor Con Er Tab*) 40 meq PO .SEE COMMENTS PRN PRN Reason: PATIENT'S POTASSIUM LEVEL Potassium Chloride (Klor Con Er Tab*) 20 meq PO BID [facility] Last Admin: 06/01/17 20:55 Dose: 20 meq Warfarin Sodium (Coumadin Tab(*)) 5 mg PO QPM [facility] PRN Reason: Protocol Last Admin: 06/01/17 18:22 Dose: 5 mg Objective Vital Signs: Temp Pulse Resp BP Pulse Ox 97.5 F 58 16 117/56 96 06/02/17 04:20 06/02/17 04:20 06/02/17 07:40 06/02/17 04:20 06/02/17 04:20 Oxygen Devices in Use Now: None Appearance: older woman seated, no distress, at usual baseline in appearance. Eyes: No Scleral Icterus, PERRLA Ears/Nose/Mouth/Throat: Mucous Membranes Moist Neck: NL Appearance and Movements; NL JVP Respiratory: Symmetrical Chest Expansion and Respiratory Effort, Clear to Auscultation Cardiovascular: RRR Abdominal: NL Sounds; No Tenderness; No Distention Extremities: No Edema Skin: No Rash or Ulcers Neurological: Alert and Oriented x 3, NL Gait, NL Muscle Strength and Tone Lines/Tubes/Other Access: Clean, Dry and Intact Peripheral IV Laboratory Results: 06/02/17 05:44 EKG Data: NSR, QTc < 500 ms. Tele: rare PVC's last karena, sinus bradycardia 40's with sleep. Assessment/Plan 76 yo with PAF admitted for Tikosyn loading, doing well. Continue current dose. PVC's hs longstanding, I don't think they are related to TIkosyn.
[2017-06-02] MEDS: DOFETILIDE 125 MCG PO SCH ×2 (10:13→22:59)
[2017-06-02] MEDS: Potassium Chlor TAB* 20 MEQ TAB.ER PO SCH ×2 (10:13→21:03)
[2017-06-02] MEDS: Multivitamins/Minera Areds(NF) 1 CAP CAP PO SCH (10:37)
[2017-06-02] MEDS: MAGNESIUM 500 MG PO SCH (16:54)
[2017-06-02] MEDS: Warfarin TAB(*) 5 MG PO SCH (17:54)
[2017-06-02] MEDS: FLUTICASONE INH SCH (17:55)
[2017-06-02] MEDS: VILANTEROL MDI INH SCH (17:55)
[2017-06-02] MEDS: MDI INH SCH (17:55)
[2017-06-02] MEDS: Cetirizine* 10 MG TAB PO SCH (21:03)
[2017-06-02] MEDS ORDERED: Metoprolol Tartrate TAB* 25 MG PO ONE (23:34)
[2017-06-02] MEDS ORDERED: Metoprolol Tartrate TAB* 25 MG ONE (23:42)
[2017-06-03 07:22] LABS: EGFR Non-African American 54.9 (>60)
[2017-06-03] MEDS: Potassium Chlor TAB* 20 MEQ TAB.ER PO SCH ×2 (09:37→22:03)
[2017-06-03] MEDS: DOFETILIDE 125 MCG PO SCH ×2 (10:36→22:03)
--- NOTE | 2017-06-03 10:53 | PN ---
Subjective Date of Service: 06/03/17 - CC: palpitations, afib Interval History: The patient had symptomatic afib after going to sleep. Pounding. Lasted 5 hours. No c/o now other than fatigue from not sleeping. Medications Active Medications: Cetirizine HCl (Zyrtec*) 10 mg PO 2100 [facility] PRN Reason: Protocol Last Admin: 06/02/17 21:03 Dose: 10 mg Dofetilide (Tikosyn Cap*) 125 mcg PO Q12H [facility] Last Admin: 06/03/17 10:36 Dose: 125 mcg Fluticasone/Vilanterol (Breo Ellipta Mdi 100/25(Nf)) 1 puff INH QPM [facility] Last Admin: 06/02/17 17:55 Dose: 1 puff Multivitamins/Minerals (Preservision Areds(Multivitamins/Mineral)(Nf)) 1 cap PO DAILY [facility] Last Admin: 06/02/17 10:37 Dose: Not Given Nf: Magnesium [ Essential Magnesium] 500 Mg 500 mg PO QPM [facility] Last Admin: 06/02/17 16:54 Dose: Not Given Pharmacy Profile Note (Coumadin Daily Reminder*) 0 note FOLLOW UP 1700 [facility] Last Admin: 06/02/17 17:54 Dose: 1 note Potassium Chloride (Klor Con Er Tab*) 40 meq PO .SEE COMMENTS PRN PRN Reason: PATIENT'S POTASSIUM LEVEL Potassium Chloride (Klor Con Er Tab*) 20 meq PO BID [facility] Last Admin: 06/03/17 09:37 Dose: 20 meq Warfarin Sodium (Coumadin Tab(*)) 5 mg PO QPM [facility] PRN Reason: Protocol Last Admin: 06/02/17 17:54 Dose: 5 mg Objective Vital Signs: Temp Pulse Resp BP Pulse Ox 97.5 F 47 16 96/51 96 06/03/17 07:39 06/03/17 07:39 06/03/17 07:39 06/03/17 07:39 06/03/17 07:39 Oxygen Devices in Use Now: None Appearance: older woman lying in bed, appears fatigued but no distress. Eyes: No Scleral Icterus, PERRLA Ears/Nose/Mouth/Throat: Mucous Membranes Moist Neck: NL Appearance and Movements; NL JVP Respiratory: Symmetrical Chest Expansion and Respiratory Effort, Clear to Auscultation Cardiovascular: RRR Abdominal: NL Sounds; No Tenderness; No Distention Extremities: No Edema Skin: No Rash or Ulcers Neurological: Alert and Oriented x 3, NL Gait, NL Muscle Strength and Tone Lines/Tubes/Other Access: Clean, Dry and Intact Peripheral IV Laboratory Results: 06/03/17 06:49 EKG Data: NSR, QTc < 500 ms. Tele:In and out of afib 11:30 PM to 4 AM. Assessment/Plan 76 yo with PAF admitted for Tikosyn loading, break through afib with sleep. Continue current dose of Tikosyn loading. Check overnight oxymetry. Probable d/c in AM, eRx sent to [facility], paper Rx to dispense Tikosyn completed today.
[2017-06-03] MEDS: Multivitamins/Minera Areds(NF) 1 CAP CAP PO SCH (11:54)
[2017-06-03] MEDS: Warfarin TAB(*) 5 MG PO SCH (18:24)
[2017-06-03] MEDS: MAGNESIUM 500 MG PO SCH (18:24)
[2017-06-03] MEDS: FLUTICASONE INH SCH (21:56)
[2017-06-03] MEDS: MDI INH SCH (21:56)
[2017-06-03] MEDS: VILANTEROL MDI INH SCH (21:56)
[2017-06-03] MEDS: Cetirizine* 10 MG TAB PO SCH (22:03)
[2017-06-04 07:37] LABS: EGFR Non-African American 56.9 (>60)
[2017-06-04] MEDS: Potassium Chlor TAB* 20 MEQ TAB.ER PO SCH (09:33)
[2017-06-04] MEDS: DOFETILIDE 125 MCG PO SCH (09:34)
[2017-06-04] MEDS: Multivitamins/Minera Areds(NF) 1 CAP CAP PO SCH (09:34)
--- NOTE | 2017-06-04 11:59 | DS ---
CC: Dr. Vargas * DISCHARGE SUMMARY: DATE OF ADMISSION: DATE OF DISCHARGE: 06/04/17 HISTORY OF PRESENT ILLNESS AND HOSPITAL COURSE: Maria Elena Bryan is a 76-year-old woman with a history of paroxysmal atrial fibrillation, who was admitted for Tikosyn loading. She arrived in sinus rhythm. Based on her QT interval and creatinine clearance, she was started on Tikosyn 125 mcg b.i.d. The first night , the patient had some PVCs and palpitations that she typically has when lies down at night, but no couplets or triplets are sustained or nonsustained ventricular activities then or at any time in the admission. The second night, the patient developed atrial fibrillation at around 11:30 at night after she was asleep and this lasted 5 hours and she spontaneously cardioverted at 4 in the morning. She was very symptomatic with this. Her QT interval remained acceptable and Tikosyn loading was continued. Last night, an overnight oximeter was done and she did have very mild desaturation, 5 minutes and 12 seconds at less than 90% and 1 minute and 44 seconds oxygen saturation dropped below 89%. The patient has had no further AFib and on the day of discharge, she was in sinus bradycardia which is her baseline, off antiarrhythmics. Her blood pressure was 109/54, pulse 54 and regular, oxygen saturation on room air 96%, and she was afebrile. The patient was examined by Dr. Hutchinson on the day of discharge. DIAGNOSTIC STUDIES/LAB DATA: Labs, 06/04/17, sodium 139, potassium 4.1, chloride 107, bicarb 26, BUN 19, creatinine 0.95, magnesium on admission 2.4. 12-lead ECG is pending, but corrected QT interval based on telemetry was 426 milliseconds. CONCLUSION: Maria Elena Bryan is a 76-year-old woman with history of paroxysmal atrial fibrillation, successfully loaded on Tikosyn 125 mcg b.i.d. During the admission, one night, she had PVCs, another night she had 5 hours of AFib. The last night, she maintained sinus rhythm and has maintained good QT intervals and good labs. She had very mild desaturation on the overnight oximetry. The patient will be discharged on the following medications: 1. Zyrtec 10 mg q. day. 2. Tikosyn 125 mcg b.i.d. 3. Tomás LEVIN 1 puff q.h.s. 4. PreserVision AREDS with minerals and multiple vitamins 1 tab daily. 5. Magnesium 500 mg a day. 6. Coumadin. 7. Potassium chloride 40 mEq a day. 8. She will resume her vitamin D3 and vitamin B12 when she gets home. See admission history and physical for additional details of the patient's past medical history. The patient will follow up in our office later this month for followup on QT intervals and continue with electrophysiology evaluation. [id number]/[facility] #: [id number] DANNY
[2017-06-04 13:17] VITALS: BP 118/56
== END 2017-06-04 14:00 | disposition home or self-care (01) | DRG 310 ==
LOC: MEDTELE 08:58
PROVIDERS: ADMIT Specialist; ATTEND Specialist
DX: I48.0 Paroxysmal atrial fibrillation (principal); I08.3 Combined rheumatic disorders of mitral, aortic and tricuspid valves; J45.909 Unspecified asthma, uncomplicated; R00.1 Bradycardia, unspecified; Z88.1 Allergy status to other antibiotic agents; Z88.8 Allergy status to other drugs, medicaments and biological substances; Z79.01 Long term (current) use of anticoagulants; Z82.49 Family history of ischemic heart disease and other diseases of the circulatory system; Z87.891 Personal history of nicotine dependence
CPT/HCPCS: 36415; 80048; 83735; 93005; 94640; 94760; 94762; A9270-GY

== ENCOUNTER 2018-09-17 13:40 | Emergency (ER) | payer MEDICARE ==
--- OUTSIDE RECORDS SUMMARY | 2018-09-17 13:46 | XMS REPORT | Continuity of Care Document ---
:1940 External Reference #:[id number] Author Name Hailey Damon Care Team Providers Name Role Phone Lisa Miles MD Primary Care Physician Unavailable Payers Date Identification Numbers Payment Provider Subscriber Effective: 2003 Policy Number: [id number] Medicare Maria Elena Bryan PayID: [id number] [address] [place] [address] Policy Number: [id number] [facility] Maria Elena Bryan PayID: [id number] [address] [place] [address] Advance Directives Description No Information Available Problems Active Problems Provider Date Atrial fibrillation Jannet Albrecht M.D. Onset: 02/26/2014 Mitral valve disorder Jannet Albrecht M.D. Onset: 02/26/2014 Rheumatic mitral regurgitation Jannet Albrecht M.D. Onset: 01/15/2015 Paroxysmal atrial fibrillation Jannet Albrecht M.D. Onset: 01/09/2016 Essential hypertension Jannet Albrecht M.D. Onset: 01/09/2016 Supraventricular premature beats Jannet Albrecht M.D. Onset: 02/15/2017 Premature beats Jannet Albrecht M.D. Onset: 02/15/2017 Family History Date Family Member(s) Observation Comments Onset: (2015) First Sister Congestive Heart Failure arrhythmia, ablation, (CHF) pacemaker, pulmonary hypertension. Diagnosed 2015, 2 months later 2015. 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 Allergies, Adverse Reactions, Alerts Active Allergies Reaction Severity Comments Date Tetracycline hives/rash 01/31/2013 Biaxin rash 01/31/2013 Sudafed atrial fibrillation 01/31/2013 Doxycycline 06/17/2017 Protonix Profound Fatigue 01/13/2018 Medications Active Medications SIG Qnty Indications Ordering Date Provider Tramadol HCL 1 tab every 8 hours 21tabs Teresa Mahmood, 08/21/2018 50mg as needed for pain M.D. Tablets Coumadin 2.5 mg x7 days a Unknown 5mg Tablets week as directed( adjusted ) Last Inr drawn 07/06/18 2.4 Preservision 1 po bid Unknown Potassium Chloride 2 tabs by mouth 180tabs Jannet Albrecht, ER daily as directed M.D. 20Meq Tablets ER Zyrtec Allergy 1 by mouth every Unknown 10mg day prn Tablets Magnesium 1 by mouth twice Unknown 250mg daily Tablets Am/PM(occassionally 500 mg in PM) Vitamin D3 1 by mouth every Unknown 2000Unit day Capsules Vitamin B12 occasionally Unknown 1000mcg Tablets ER Ultra Tart Ritter 1200mg 1 po three Unknown Extract times daily History Medications Tikosyn 1 by mouth twice 60caps Jannet Albrecht, 06/04/2017 - 125mcg a day M.D. 07/03/2018 Capsules Enoxaparin Sodium 1 mg/kg subq now 5units Bossman Herndon, 05/28/2017 - on 05/28/2017, DO FACC 06/18/2017 60mg/0.6ML Solution one Monday 05/29 Am and Tuesday PM, take 5 mg warfarin tonight, 2.5 mg tomorrow, Inr check Mon Flecainide Acetate 1/2 by mouth 90tabs I48.0 Jannet Albrecht, 07/28/2015 - twice a day M.D. 01/25/2017 150mg Tablets Standard Cane S32.89xD Ashley Reyes, 02/10/2015 - M.D. 01/05/2017 [place] take 1-2 tab po 60tabs [place], 02/01/2013 - 5-325mg Tablets every 4-6 hours M.D. 04/02/2013 as needed for pain Flecainide Acetate 1 1/2 tab by 270tabs I48.0 Jannet Albrecht, 02/23/2012 - mouth twice a M.D. 07/28/2015 50mg Tablets day Losartan Potassium 1/2 tab by mouth 45tabs Jannet Albrecht, - every day M.D. 01/28/2017 25mg Tablets Flovent Unknown - 01/27/2014 Singulair 1 po qd 30tabs Unknown - 10mg 02/26/2014 Tablets Flonase 2 puff qd Unknown - 01/27/2014 Calcium/Magnesium/Vi prn Unknown - t D 01/08/2016 Qvar 2 puff twice a 1units Unknown - 80mcg/Act day 07/03/2018 Aerosol Vitamin D3 High 1 tab by mouth Unknown - Potency qhs 01/08/2016 1000Unit Capsules Vitamin B12 1 po x 3 times Unknown - 1000mg per week 01/05/2017 Penicillin V 1 tab po four Unknown - Potassium times a day 01/05/2017 500mg Tablets Gabapentin 1 tablet three Lisa Miles MD - 100mg times per day 02/14/2017 Capsules Omeprazole Unknown - 02/14/2017 Amlodipine Besylate 1 by mouth every Unknown - day 02/02/2017 2.5mg Tablets Pantoprazole Sodium 1 by mouth every Unknown - day 09/19/2017 40mg Solution Rec Pantoprazole Sodium 1 by mouth every Unknown - day Am 01/12/[address] Medications Administered in Office Medication SIG Qnty Indications Ordering Provider Date Inj, Regadenoson, 0.1 MG Bossman Herndon, DO [facility] 01/26/2017 Injection Technetium TC 99M Bossman Herndon, DO [facility] 01/26/2017 Tetrofosmin, Per Unit Dose Up To 40 Millicuries Injection Immunizations Description No Information Available Vital Signs Date Vital Result Comment 08/21/2018 2:08pm Height 60 inches 5'0" Weight 126.00 lb Heart Rate 72 /min BP Systolic 128 mmHg BP Diastolic 72 mmHg Respiratory Rate 12 /min Body Temperature 97.8 F Pain Level 5 BMI (Body Mass Index) 24.6 kg/m2 07/11/2018 9:50am Height 60 inches 5'0" Weight 127.00 lb with shoes Heart Rate 62 /min BP Systolic Sitting 140 mmHg Rue reg cuff BP Diastolic Sitting 62 mmHg Rue reg cuff BP Systolic Standing 130 mmHg Rue reg cuff BP Diastolic Standing 60 mmHg Rue reg cuff BP Systolic Lying Down 140 mmHg Rue reg cuff BP Diastolic Lying Down 68 mmHg Rue reg cuff Respiratory Rate 15 /min BMI (Body Mass Index) 24.8 kg/m2 Ejection Fraction 60-65% date 09/08/17 ECHO 07/03/2018 1:41pm Height 60 inches 5'0" Weight 130.00 lb BP Systolic 112 mmHg BP Diastolic 60 mmHg Pain Level 0 Varies BMI (Body Mass Index) 25.4 kg/m2 01/13/2018 1:07pm Height 60 inches 5'0" Weight 127.00 lb Heart Rate 60 /min BP Systolic Sitting 122 mmHg rue reg cuff BP Diastolic Sitting 60 mmHg rue reg cuff BP Systolic Standing 118 mmHg BP Diastolic Standing 62 mmHg Respiratory Rate 16 /min BMI (Body Mass Index) 24.8 kg/m2 Ejection Fraction 60-65% 09/08/17 echo 10/11/2017 9:48am Height 60 inches 5'0" Weight 126.00 lb with out shoes Heart Rate 56 /min BP Systolic Sitting 120 mmHg Rue reg cuff BP Diastolic Sitting 66 mmHg Rue reg cuff BP Systolic Standing 112 mmHg Rue reg cuff BP Diastolic Standing 70 mmHg Rue reg cuff Respiratory Rate 16 /min BMI (Body Mass Index) 24.6 kg/m2 Ejection Fraction 60-65% date 09/08/17 ECHO 09/20/2017 2:16pm Height 60 inches 5'0" Weight 128.00 lb without shoes Heart Rate 64 /min BP Systolic 110 mmHg Rue reg cuff Recheck DB BP Diastolic 64 mmHg Rue reg cuff Recheck DB BP Systolic Sitting 90 mmHg Rue reg cuff Resting BP Diastolic Sitting 60 mmHg Rue reg cuff Resting BP Systolic Standing 120 mmHg Rue reg cuff recheck DB BP Diastolic Standing 60 mmHg Rue reg cuff recheck DB BP Systolic Lying Down 130 mmHg Rue reg cuff recheck DB BP Diastolic Lying Down 70 mmHg Rue reg cuff recheck DB Respiratory Rate 16 /min BMI (Body Mass Index) 25.0 kg/m2 Ejection Fraction 60-65% date 09/08/17 ECHO 09/02/2017 9:56am Height 60 inches 5'0" Weight 128.00 lb w/ o shoes Heart Rate 68 /min BP Systolic Sitting 92 mmHg rue rg cuff BP Diastolic Sitting 48 mmHg rue rg cuff BP Systolic Standing 96 mmHg rue rg cuff BP Diastolic Standing 52 mmHg rue rg cuff Respiratory Rate 18 /min BMI (Body Mass Index) 25.0 kg/m2 Ejection Fraction 55-60% echo 02/23/17 06/17/2017 8:03am Height 60 inches 5'0" Weight 130.00 lb w/shoes Heart Rate 56 /min BP Systolic Sitting 104 mmHg rue reg cuff BP Diastolic Sitting 62 mmHg rue reg cuff Respiratory Rate 18 /min BMI (Body Mass Index) 25.4 kg/m2 Ejection Fraction 55-60% echo 02/23/17 05/27/2017 10:45am Height 60 inches 5'0" Weight 128.00 lb pt statement Heart Rate 80 /min irregularly irregular BP Systolic Sitting 104 mmHg rue reg cuff BP Diastolic Sitting 62 mmHg rue reg cuff Respiratory Rate 18 /min BMI (Body Mass Index) 25.0 kg/m2 Ejection Fraction 55-60% echo 02/23/17 04/14/2017 3:01pm Height 60 inches 5'0" Weight 130.00 lb Heart Rate 60 /min BP Systolic Sitting 134 mmHg Rue reg cuff BP Diastolic Sitting 84 mmHg Rue reg cuff BP Systolic Standing 132 mmHg Rue BP Diastolic Standing 84 mmHg Rue Respiratory Rate 14 /min BMI (Body Mass Index) 25.4 kg/m2 Ejection Fraction 55-60% 02/23/17 02/15/2017 7:50am Height 60 inches 5'0" Weight 126.00 lb with shoes Heart Rate 60 /min BP Systolic Sitting 132 mmHg Rue reg cuff BP Diastolic Sitting 74 mmHg Rue reg cuff BP Systolic Standing 128 mmHg Rue reg cuff BP Diastolic Standing 80 mmHg Rue reg cuff Respiratory Rate 16 /min BMI (Body Mass Index) 24.6 kg/m2 Ejection Fraction 67% 02/01/2013-echo 01/28/2017 3:33pm Height 60 inches 5'0" Weight 129.00 lb Heart Rate 56 /min BP Systolic Sitting 108 mmHg Rue reg cuff BP Diastolic Sitting 64 mmHg Rue reg cuff BP Systolic Standing 108 mmHg BP Diastolic Standing 64 mmHg Respiratory Rate 14 /min BMI (Body Mass Index) 25.2 kg/m2 Ejection Fraction 67% 02/01/13 08/06/2016 3:50pm Height 60 inches 5'0" Weight 131.00 lb Heart Rate 50 /min BP Systolic Sitting 146 mmHg right arm, reg cuff BP Diastolic Sitting 76 mmHg right arm, reg cuff BP Systolic Standing 144 mmHg right arm, reg cuff BP Diastolic Standing 76 mmHg right arm, reg cuff BMI (Body Mass Index) 25.6 kg/m2 Ejection Fraction 67% 02/01/13 01/09/2016 3:31pm Height 60 inches 5'0" Weight 131.00 lb with shoes Heart Rate 56 /min BP Systolic Sitting 130 mmHg Ra reg cuff BP Diastolic Sitting 70 mmHg Ra reg cuff BP Systolic Standing 140 mmHg Ra reg cuff BP Diastolic Standing 70 mmHg Ra reg cuff Respiratory Rate 16 /min BMI (Body Mass Index) 25.6 kg/m2 Ejection Fraction 67% date 02/01/13 ECHO 07/28/2015 8:24am Height 60 inches 5'0" Weight 128.00 lb w/o shoes Heart Rate 64 /min reg BP Systolic Sitting 114 mmHg Rue, reg cuff BP Diastolic Sitting 76 mmHg Rue, reg cuff BP Systolic Standing 108 mmHg Rue BP Diastolic Standing 76 mmHg Rue Respiratory Rate 18 /min BMI (Body Mass Index) 25.0 kg/m2 Ejection Fraction 67% as of 02/01/13 echo 03/06/2015 11:04am Height 60 inches 5'0" Weight 126.00 lb Pain Level 0 BMI (Body Mass Index) 24.6 kg/m2 02/10/2015 11:31am Height 60 inches 5'0" Weight 126.00 lb Pain Level 0 BMI (Body Mass Index) 24.6 kg/m2 01/20/2015 3:15pm Height 60 inches 5'0" Weight 126.00 lb BMI (Body Mass Index) 24.6 kg/m2 01/15/2015 3:41pm Height 60 inches 5'0" Weight 126.00 lb Heart Rate 56 /min BP Systolic Standing 126 mmHg Ra reg cuff BP Diastolic Standing 78 mmHg Ra reg cuff BP Systolic Lying Down 122 mmHg Ra BP Diastolic Lying Down 76 mmHg Ra Respiratory Rate 18 /min BMI (Body Mass Index) 24.6 kg/m2 Ejection Fraction 67% 02/01/13 08/09/2014 3:26pm Height 60 inches 5'0" Weight 128.00 lb w/o shoes Heart Rate 54 /min reg BP Systolic Sitting 102 mmHg Ra, reg cuff BP Diastolic Sitting 76 mmHg Ra, reg cuff BP Systolic Standing 108 mmHg Ra BP Diastolic Standing 70 mmHg Ra Respiratory Rate 18 /min BMI (Body Mass Index) 25.0 kg/m2 02/26/2014 10:40am Height 60 inches 5'0" Weight 128.38 lb Heart Rate 60 /min BP Systolic Sitting 120 mmHg R arm reg cuff BP Diastolic Sitting 70 mmHg R arm reg cuff BP Systolic Standing 110 mmHg BP Diastolic Standing 70 mmHg Respiratory Rate 18 /min BMI (Body Mass Index) 25.1 kg/m2 04/04/2013 11:29am Heart Rate 54 /min BP Systolic Sitting 128 mmHg right arm, reg cuff BP Diastolic Sitting 80 mmHg right arm, reg cuff BP Systolic Standing 124 mmHg right arm, reg cuff BP Diastolic Standing 80 mmHg right arm, reg cuff Respiratory Rate 16 /min 02/01/2013 10:16am Height 61 inches 5'1" Weight 129.00 lb Heart Rate 60 /min BP Systolic 127 mmHg BP Diastolic 74 mmHg BMI (Body Mass Index) 24.4 kg/m2 01/31/2013 11:52am Height 61 inches 5'1" Weight 129.00 lb Heart Rate 60 /min BP Systolic Sitting 104 mmHg Ra reg cuff BP Diastolic Sitting 60 mmHg Ra reg cuff BP Systolic Standing 100 mmHg Ra BP Diastolic Standing 60 mmHg Ra Respiratory Rate 16 /min BMI (Body Mass Index) 24.4 kg/m2 Results Test Date Facility Test Result H/L Range Note Basic Metabolic 06/26/2018 [facility] Sodium 140 mmol/L N 135- [address] [place] [address] [phone] Potassium 4.5 mmol/L N 3.5-5.0 Chloride 106 mmol/L N 101-111 Co2 Carbon Dioxide 28 mmol/L N 22-32 Anion Gap 6 mmol/L N 2-11 Glucose 85 mg/dL N 70-100 Blood Urea Nitrogen 18 mg/dL N 6-24 Creatinine 0.86 mg/dL N 0.51-0.95 BUN/Creatinine Ratio 20.9 High 8-20 Calcium 9.3 mg/dL N 8.6-10.3 Egfr Non- 63.7 >60 Egfr 77.0 >60 1 Laboratory test 06/26/2018 [facility] Magnesium 2.2 mg/dL N 1.9-2.7 2 finding [address] [place] [address] [phone] Inr/Protime 05/28/2017 [facility] Inr 1.91 High 0.77-1.02 3 [address] [place] [address] [phone] Laboratory test 05/27/2017 [facility] Magnesium 2.4 mg/dL N 1.9-2.7 finding [address] [place] [address] [phone] TSH (Thyroid Stim Horm) 4.58 mcIU/mL N 0.34-5.60 Basic Metabolic Panel 05/27/2017 [facility] Sodium 137 mmol/L N 133-145 [address] [place] [address] [phone] Potassium 4.5 mmol/L N 3.5-5.0 Chloride 103 mmol/L N 101-111 Co2 Carbon Dioxide 27 mmol/L N 22-32 Anion Gap 7 mmol/L N 2-11 Glucose 70 mg/dL N 70-100 Blood Urea Nitrogen 16 mg/dL N 6-24 Creatinine 1.05 mg/dL High 0.51-0.95 BUN/Creatinine Ratio 15.2 N 8-20 Calcium 9.6 mg/dL N 8.6-10.3 Egfr Non- 50.7 >60 Egfr 65.2 >60 4 Inr/Protime 05/27/2017 [facility] Inr 1.96 High 0.77-1.02 [address] [place] [address] [phone] Order 01/25/2017 [facility] Stress Test, <pendin [address] Exercise g> [place] [address] Echocardiogram [phone] Basic Metabolic 08/02/2014 Sodium 138 N 133-145 Panel mmol/L Potassium 4.0 mmol/L N 3.5-5.0 Chloride 103 mmol/L N 101-111 Co2 Carbon Dioxide 27 mmol/L N 22-32 Anion Gap 8 mmol/L N 2-11 Glucose 85 mg/dL N 70-100 Blood Urea Nitrogen 19 mg/dL N 6-24 Creatinine 0.93 mg/dL N 0.51-0.95 BUN/Creatinine Ratio 20.4 High 8-20 Calcium 9.4 mg/dL N 8.6-10.3 Egfr Non- 58.8 N >60 Egfr 75.6 N >60 5 Laboratory test finding 08/02/2014 Magnesium 2.2 mg/dL N 1.9-2.7 TSH (Thyroid Stimulating Horm) 3.01 IU/mL N 0.34-5.60 Basic Metabolic Panel 09/06/2013 [facility] Sodium 140 mmol/L N 133-[address] [place] [address] [phone] Potassium 4.3 mmol/L N 3.7-5.6 Chloride 105 mmol/L N 101-111 Co2 Carbon Dioxide 29 mmol/L N 22-32 Anion Gap 6 mmol/L N 2-11 Glucose 96 mg/dL N 70-100 Blood Urea Nitrogen 16 mg/dL N 6-24 Creatinine 1.02 mg/dL High 0.51-0.95 BUN/Creatinine Ratio 15.7 N 8-20 Calcium 9.6 mg/dL N 8.6-10.3 Egfr Non- 52.8 N >60 Egfr 67.9 N >60 6 1 Because ethnic data is not always readily [...] 15-29 5 Kidney failure <15 (or dialysis) 2 January or March Copy Result to: LISA MILES ([id number]) 3 INR 1.91 today, prescribed 1 mg/kg lovenox to take today, tomorrow AM and tomorrow PM. Her usual coumadin dosing is 2.5 mg po daily except Fridays are 5 mg. She will take 5 mg tonight instead of usual 2.5 mg then 2.5 mg tomorrow and have INR checked Tuesday at PCP office 4 Because ethnic data is not always readily [...] 15-29 5 Kidney failure <15 (or dialysis) 5 Because ethnic data is not always readily [...] 15-29 5 Kidney failure <15 (or dialysis) 6 Because ethnic data is not always [...] 15-29 5 Kidney failure <15 (or dialysis) Procedures Date Code Description Status 07/11/2018 05524 EKG Tracing & Interpretation Completed 01/13/2018 78452 EKG Tracing & Interpretation Completed 09/20/2017 79117 EKG Tracing & Interpretation Completed 09/20/2017 02636 EKG Tracing & Interpretation Completed 09/08/2017 39238 ECHO Transthoracic, Real-Time 2D With Doppler And Color Completed Flow 09/08/2017 64485 ECHO Transthoracic, Real-Time 2D With Doppler And Color Completed Flow 09/02/2017 97359 EKG Tracing & Interpretation Completed 06/17/2017 11953 EKG Tracing & Interpretation Completed 06/04/2017 64461 EKG, Interpretation Only Completed 06/03/2017 76907 EKG, Interpretation Only Completed 06/02/2017 38196 EKG, Interpretation Only Completed 06/02/2017 86585 Moderate Sedation Services; Same Phys Intl 15 Mins; PT >=5 Completed Years 06/01/2017 06175 EKG, Interpretation Only Completed 05/27/2017 58049 EKG, Interpretation Only Completed 05/27/2017 04560 EKG Tracing & Interpretation Completed 05/27/2017 91638 Cardioversion Completed 03/01/2017 28521 Stress Test Completed 03/01/2017 87834 Stress Test Completed 03/01/2017 05857 Stress Test Completed 02/23/2017 54739 ECHO Transthoracic, Real-Time 2D With Doppler And Color Completed Flow 02/23/2017 09023 ECHO Transthoracic, Real-Time 2D With Doppler And Color Completed Flow 02/15/2017 33266 EKG Tracing & Interpretation Completed 02/06/2017 18126 Holter Monitor Review (24 hr)dr review & interp only Completed 02/04/2017 77329 ECG Monitor/Recording W/Visual Superimposition Scanning Completed 02/03/2017 61457 ECG Monitor/Recording W/Visual Superimposition Scanning Completed 01/26/2017 39993 Stress Test Completed 01/26/2017 43541 Myocardial Perfusion Imaging Tomographic (Spect) Multiple Completed Studies 01/25/2017 11113 ECHO Stress Test Incl Perf Contiuous ekg Monitoring W/Phys Completed Superv 08/06/2016 69944 EKG Tracing & Interpretation Completed 01/09/2016 93152 EKG Tracing & Interpretation Completed 07/28/2015 42843 EKG Tracing & Interpretation Completed 01/15/2015 88884 EKG Tracing & Interpretation Completed 08/09/2014 29958 EKG Tracing & Interpretation Completed 04/04/2013 63408 Holter Monitoring 24 HR New Completed 04/04/2013 25302 EKG Tracing & Interpretation Completed 02/01/2013 10015 ECHO Transthoracic, Real-Time 2D With Doppler And Color Completed Flow 01/31/2013 82045 EKG Tracing & Interpretation Completed 01/24/2013 68822 Xray Knee 3 Views Completed 04/05/2012 79995 EKG Tracing & Interpretation Completed 03/30/2012 83281 ECHO Transthoracic, Real-Time 2D With Doppler And Color Completed Flow Encounters Type Date Location Provider Dx Diagnosis Office Visit 08/21/2018 [facility] Teresa Mahmood, M25.551 Pain in right hip 2:00p [facility] MKiley M16.11 Unilateral primary osteoarthritis, right hip Office Visit 07/11/2018 9:45a [facility] Jannet Albrecht, I48.0 Paroxysmal atrial Of Forming [employer] Operator M.D. fibrillation I34.0 Nonrheumatic mitral (valve) insufficiency R00.2 Palpitations I49.3 Ventricular premature depolarization R21 Rash and other nonspecific skin eruption Office Visit 07/03/2018 1:30p [facility] Tena Valverde5.551 Pain in right Of [facility] M.D. hip M16.11 Unilateral primary osteoarthritis, right hip Office Visit 01/13/2018 1:10p [facility] Jannet Albrecht I48.0 Paroxysmal atrial Of [employer]ing [employer] Control Operator M.D. fibrillation Office Visit 10/11/2017 10:00a [facility] Jannet Albrecht I48.0 Paroxysmal atrial Of [employer]ing [employer] Control Operator M.D. fibrillation I34.0 Nonrheumatic mitral (valve) insufficiency I36.1 Nonrheumatic tricuspid (valve) insufficiency Office Visit 09/20/2017 2:30p [facility] Nicky S. I48.0 Paroxysmal atrial Of Forming [employer]age Control Operator Foster, N.P. fibrillation I34.0 Nonrheumatic mitral (valve) insufficiency I10 Essential (primary) hypertension R53.83 Other fatigue Office Visit 09/02/2017 10:00a [facility] Jannet Albrecht I48.0 Paroxysmal atrial Cardiology Of M.D. fibrillation [employer]ing [employer] Operator [facility] Office Visit 06/17/2017 8:20a [facility] Jannet Albrecht I48.0 Paroxysmal atrial Cardiology Of M.D. fibrillation Forming [employer] Control Operator AT [facility] Office Visit 06/04/2017 2:53p Gial Butler SHarry I48.91 Unspecified atrial Cardiology Maghaydah, fibrillation M.D. Office Visit 06/04/2017 10:18a [place] Jannet Albrecht I48.0 Paroxysmal atrial Cardiology Of M.D. fibrillation [employer]ing [employer] Operator Z51.81 Encounter for therapeutic drug level monitoring Office Visit 06/03/2017 11:34a [facility] Jannet Albrecht I48.0 Paroxysmal atrial Of [employer]ing [employer] Control Operator M.D. fibrillation Office Visit 06/02/2017 4:00p [facility] Jannet Albrecht I48.0 Paroxysmal atrial Of Forming [employer] Control Operator M.D. fibrillation I49.3 Ventricular premature depolarization Office Visit 06/01/2017 9:00a [facility] Jannet Albrecht I48.0 Paroxysmal atrial Of [employer]ing [employer] Control Operator AT [facility] M.D. 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 I48.1 Persistent atrial Of [employer]ing [employer] Control Operator AT [facility] Foster, N.P. fibrillation I10 Essential (primary) hypertension I34.0 Nonrheumatic mitral (valve) insufficiency I36.1 Nonrheumatic tricuspid (valve) insufficiency Office Visit 04/14/2017 2:45p [facility] Jannet Albrecht, I48.0 Paroxysmal atrial Of [employer]ing [employer] Control Operator M.D. fibrillation I10 Essential (primary) hypertension I34.0 Nonrheumatic mitral (valve) insufficiency I36.1 Nonrheumatic tricuspid (valve) insufficiency Office Visit 02/15/2017 8:00a [facility] Jannet Albrecht, I48.0 Paroxysmal atrial Of [employer]ing [employer] Control Operator M.D. fibrillation I49.1 Atrial premature depolarization I49.3 Ventricular premature depolarization R42 Dizziness and giddiness Office Visit 01/28/2017 3:30p [facility] Jannet Albrecht, R42 Dizziness and Of Forming [employer] Control Operator M.D. giddiness I48.0 Paroxysmal atrial fibrillation K21.9 Gastro-esophageal reflux disease without esophagitis E87.6 Hypokalemia Office Visit 08/06/2016 3:30p [facility] Jannet Albrecht, I48.0 Paroxysmal atrial Of [employer]ing [employer] Operator M.D. fibrillation R07.9 Chest pain, unspecified K02.9 Dental caries, unspecified Office Visit 01/09/2016 3:00p [facility] Jannet Albrecht, I48.0 Paroxysmal atrial Of [employer]ing [employer] Operator M.D. fibrillation I34.0 Nonrheumatic mitral (valve) insufficiency I10 Essential (primary) hypertension Office Visit 07/28/2015 8:30a [facility] Jannet Albrecht, I48.0 Paroxysmal atrial Of [employer]ing [employer] Operator M.D. fibrillation I34.0 Nonrheumatic mitral (valve) insufficiency Office 03/06/2015 Orthopedic Ashley S32.89xD Fracture of oth parts Visit 10:40a Services Of Shobha Reyes of pelvis, [facility] 02/10/2015 [facility] Ashley S32.89xD Fracture of oth parts Visit 10:50a Services Of Shobha Reyes of pelvis, subs for [facility] Office 01/20/2015 Orthopedic Zulma S32.89xA Fracture of oth parts Visit 2:40p Services Of KARY Bragg-C of pelvis, init for [facility]. clos fx Office 01/15/2015 [place] Jannet Albrecht, 794.31 Electrocardiogram Visit 3:45p Cardiology Of M.D. (ECG) (EKG) Abnormal [facility] 427.31 Atrial Fibrillation 424.0 Mitral Valve Disorder Office Visit 08/09/2014 3:00p Alcija Albrecht, 427.31 Atrial Cardiology Of M.D. Fibrillation [employer]ing [employer] Operator Office Visit 02/26/2014 10:30a Alicja Albrecht 427.31 Atrial Cardiology Of M.D. Fibrillation [facility] 424.0 Mitral Valve Disorder Office Visit 04/04/2013 11:15a [facility] Nurse Visit 785.1 Palpitations Of [facility] IC Office Visit 01/31/2013 11:15a [facility] Jannet 427.31 Atrial Fibrillation Of [facility] Shobha Albrecht V72.84 Examination Preoperative Unspec 396.3 Mitral & Aortic Valve Insufficiency Office Visit 01/24/2013 3:00p Orth[facility] [place] 836.0 Dislocation Knee Services Of Shobha Dai Tear Of Medial [facility] Cartilage Or Meniscus Curren Office Visit 04/05/2012 8:30a [place] Jannet Albrecht, 427.31 Atrial Cardiology Of M.D. Fibrillation [facility] 394.1 Rheumatic Mitral Insufficiency 785.1 Palpitations Plan of Treatment Future Appointment(s):09/22/2018 10:00 am - Teresa Mahmood M.D. at [facility]08/21/2018 - Teresa Mahmood M.D.M25.551 Pain in right hipNew Xrays:Hip Right 2 Views And Pelvis 90945 - 17499, Ordered: 08/21/18Follow up: Follow up: for H&PM16.11 Unilateral primary osteoarthritis, right hip
[2018-09-17 13:52] VITALS: BP 115/51
--- NOTE | 2018-09-17 14:12 | UC ---
Skin Complaint HPI - HPI Summary HPI Summary: patient felt a scratch on her back this morning and her thought he removed a tick from her back. she is worried because she is having hip surgery in a few weeks. - History of Current Complaint Chief Complaint: UCSkin Stated Complaint: tiCk bite Hx Obtained From: Patient ?: No Onset/Duration: Sudden Onset, Lasting Hours Skin Exposure Onset/Duration: Hours Ago Timing: Constant Onset Severity: Mild Current Severity: None Pain Intensity: 0 - Allergy/Home Medications Allergies/Adverse Reactions: Allergies Allergy/AdvReac Type Severity Reaction Status Date / Time clarithromycin Allergy Severe Rash Verified 09/17/18 13:52 pseudoephedrine Allergy Severe See Comment Verified 09/17/18 13:52 Tetracyclines Allergy Severe Rash Verified 09/17/18 13:52 doxycycline Allergy Unknown Unknown Verified 09/17/18 13:52 Reaction Details Home Medications: Home Medications Beclomethasone Dipropionate [Qvar Redihaler] 40 mcg IN DAILY WITH MEAL 09/17/18 [History Confirmed 09/17/18] Vit C/E/Zn/Coppr/Lutein/Zeaxan [Preservision Areds 2 Softgel] 1 cap PO DAILY WITH MEAL 09/17/18 [History Confirmed 09/17/18] PMH/Surg Hx/FS Hx/Imm Hx Previously Healthy: Yes - Surgical History Surgical History: Yes Surgery Procedure, Year, and Place: 1999 lt mastectomy, 1966 endometriosis, fott surgery at 10 yrs old - Family History Known Family History: Negative: Hypertension, Diabetes - Social History Alcohol Use: Daily Substance Use Type: None Smoking Status (MU): Former Smoker When Did the Patient Quit Smoking/Using Tobacco: 50 years - Immunization History Most Recent Influenza Vaccination: Fall 2016 Most Recent Pneumonia Vaccination: Up to date Review of Systems All Other Systems Reviewed And Are Negative: Yes Skin: Positive: Other - red new scab below right scapula Psychological: Positive: Anxious Is Patient Immunocompromised?: No Physical Exam Triage Information Reviewed: Yes Appearance: Well-Appearing, No Pain Distress, Well-Nourished Vital Signs: Initial Vital Signs Temp 98.6 F 09/17/18 13:45 Pulse 71 09/17/18 13:45 Resp 18 09/17/18 13:45 BP 115/51 09/17/18 13:45 Pulse Ox 99 09/17/18 13:45 Vital Signs Reviewed: Yes Eye Exam: Normal ENT Exam: Normal Dental Exam: Normal Respiratory Exam: Normal Cardiovascular Exam: Normal Abdominal Exam: Normal Musculoskeletal Exam: Normal Neurological Exam: Normal Psychological Exam: Normal Skin: Positive: Other - multiple AK on her back, area of fresh bleeding the size of a pinpoint at edge of one AK under right scapula Course/Dx - Course Course Of Treatment: hx obtained, exam performed ,meds reviewed, educated on ticks and patient - Differential Diagnoses - Skin Complaint Differential Diagnoses: Tick Born Illness - Diagnoses Provider Diagnosis: Actinic keratosis Discharge - Sign-Out/Discharge Documenting (check all that apply): Patient Departure All imaging exams completed and their final reports reviewed: No Studies - Discharge Plan Condition: Stable Disposition: HOME Patient Education Materials: Tick Bite (ED) Referrals: Anil Vargas MD [Primary Care Provider] - Additional Instructions: 1. I do not believe that was a tick, I think it was a piece of the aktinic keratosis from your back. 2. I have include information about tick bites for your review. - Billing Disposition and Condition Condition: STABLE Disposition: Home - Attestation Statements Provider Attestation: I did not see or exam this patient. I was available for consult.
== END 2018-09-17 14:17 | disposition home or self-care (01) ==
LOC: UCEAST 13:40
DX: L57.0 Actinic keratosis (principal); F41.9 Anxiety disorder, unspecified; Z88.1 Allergy status to other antibiotic agents; Z88.8 Allergy status to other drugs, medicaments and biological substances; Z87.891 Personal history of nicotine dependence
CPT/HCPCS: 99211; G0463

== ENCOUNTER 2018-10-05 07:30 | Inpatient (IN) | payer MEDICARE ==
--- NOTE | 2018-10-30 13:13 | HP ---
HISTORY AND PHYSICAL: DATE OF ADMISSION/SURGERY: 11/09/18 DATE OF OFFICE VISIT: 10/30/18 SURGEON: Teresa Mahmood MD.* (DICTATED BY SABINE SHIPLEY) PROCEDURE: Right total hip arthroplasty. CHIEF COMPLAINT: Right hip pain. HISTORY OF PRESENT ILLNESS: Ms. Bryan is an 78-year-old female with continued complaints of right hip pain. She has failed conservative treatment and elected to proceed with the right total hip arthroplasty. PAST MEDICAL HISTORY: AFib, hypertension, history of breast cancer, and history of stroke. PAST SURGICAL HISTORY: Mastectomy, ovarian cyst removal, foot surgery, and cardiac ablation. CURRENT MEDICATIONS: Coumadin 2.5 mg 7 days a week, PreserVision, potassium chloride 20 mEq 2 tablets daily, Zyrtec Allergy, magnesium 250 mg twice a day, vitamin D3. ALLERGIES: To TETRACYCLINE, BIAXIN, SUDAFED, DOXYCYCLINE, and PROTONIX. FAMILY HISTORY: Diabetes, pulmonary hypertension. SOCIAL HISTORY: She is an 78-year-old female. She lives with her . She does not smoke or use drugs. Drinks 1 glass of wine nightly. REVIEW OF SYSTEMS: A complete 14-point review of systems was reviewed. The patient was positive for history of stroke. She denies history of DVT, PE, hepatitis, HIV, or anesthesia problems. PHYSICAL EXAMINATION GENERAL: She is well developed, well nourished, in no acute distress. VITAL SIGNS: She stands 60 inches tall, weighs 126 pounds. Her blood pressure is 136/70, her heart rate is 78. HEENT: Normocephalic, atraumatic. NECK: Supple. No palpable lymph nodes. PULMONARY: The lungs are clear to auscultation bilaterally. CARDIO: Regular, rate, and rhythm. Strong S1, S2. ABDOMEN: Soft, nontender, and nondistended. NEUROLOGICAL: She is alert and oriented x3. MUSCULOSKELETAL: Right lower extremity: The skin is intact. There are no open wounds or abrasions. She walks as antalgic type gait, favoring her right hip. She has decreased internal and external rotation of the right hip. She is able to dorsiflex and plantarflex and has a 2+ dorsalis pedis pulses. ASSESSMENT AND PLAN: Ms. Bryan is an 78-year-old female with endstage osteoarthritis of the right hip. She has failed conservative treatment and elected to proceed with a right total hip arthroplasty. The surgery is scheduled for 11/09/[address] Mahmood. She was instructed to stop her Coumadin on 11/03/18, which will be her last dose. We refilled her tramadol today to take at night as needed for pain. No TXA will be used on this patient because of a history of a stroke. She will see Dr. Mahmood back in clinic 2 weeks after the surgery. SABINE SHIPLEY [id number]/[facility] #: [id number] MTDJohn
[2018-11-08] MEDS ORDERED: Buffered Lidocaine 1% SYRIN* 1 ML/SYRINGE INTRADERM ONE (15:46)
[2018-11-09] MEDS ORDERED: Gabapentin CAP(*) 300 MG PO ONE (06:00)
[2018-11-09] MEDS ORDERED: Acetaminophen TAB* 325 MG PO ONE (06:00)
[2018-11-09] MEDS ORDERED: Lactated Ringers 1000 ML Bag* 1,000 ML IV SCH (06:00)
[2018-11-09] MEDS ORDERED: Famotidine IV* 10 MG/ML 2 ML (20 mg) IV ONE (06:00)
[2018-11-09] MEDS ORDERED: Gabapentin CAP(*) 300 MG ONE (12:06)
[2018-11-09] MEDS ORDERED: Famotidine IV* 10 MG/ML 2 ML (20 mg) ONE (12:07)
[2018-11-09] MEDS ORDERED: Buffered Lidocaine 1% SYRIN* 1 ML/SYRINGE INTRADERM ONE (12:07)
[2018-11-09] MEDS ORDERED: ceFAZolin 2 GM in NS PREMIX(*) 2 GM/100 ML BAG IVPB ONE (12:07)
[2018-11-09] MEDS ORDERED: Acetaminophen TAB* 325 MG ONE (12:07)
--- OUTSIDE RECORDS SUMMARY | 2018-11-09 12:40 | XMS REPORT | Continuity of Care Document ---
:1940 External Reference #:[id number] Author Name Laura Clarke Care Team Providers Name Role Phone Lisa Miles MD Primary Care Physician Unavailable Payers Date Identification Numbers Payment Provider Subscriber Effective: 2003 Policy Number: [id number] Medicare Maria Elena Bryan PayID: [id number] [address] [place] [address] Policy Number: [id number] [facility] Maria Elena Bryan PayID: [id number] [address] [place] [address] Problems Active Problems Provider Date Atrial fibrillation Jannet Albrecht M.D. Onset: 02/26/2014 Mitral valve disorder Jannet Albrecht M.D. Onset: 02/26/2014 Rheumatic mitral regurgitation Jannet Albrecht M.D. Onset: 01/15/2015 Paroxysmal atrial fibrillation Jannet Albrecht M.D. Onset: 01/09/2016 Essential hypertension Jannet Albrecht M.D. Onset: 01/09/2016 Supraventricular premature beats Jannet Albrecht M.D. Onset: 02/15/2017 Premature beats Jannet Albrecht M.D. Onset: 02/15/2017 Tricuspid valve disorder, non-rheumatic Jannet Albrecht M.D. Onset: 09/15/2018 Family History Date Family Member(s) Observation Comments Onset: (2015) First Sister Congestive Heart Failure arrhythmia, ablation, (CHF) pacemaker, pulmonary hypertension. Diagnosed 2016, 2 months later 2016. Social History Type Date Description Comments Sex Unknown Marital Status Lives With Occupation Retired Tobacco Use Start: Unknown End: Former Cigarette Smoker Unknown Smoking Status Reviewed: 10/30/18 Former Cigarette Smoker ETOH Use Consumes 1 glass of or less wine per day Tobacco Use Start: Unknown End: Patient is a former smoke for a year, Unknown smoker quit 40 years ago Recreational Drug Use Denies Drug Use Exercise Type/Frequency Exercises regularly household personal assistant once a week, and routines 2-3 times a week. Allergies, Adverse Reactions, Alerts Active Allergies Reaction Severity Comments Date Tetracycline hives/rash 01/31/2013 Biaxin rash 01/31/2013 Sudafed atrial fibrillation 01/31/2013 Doxycycline 06/17/2017 Protonix Profound Fatigue 01/13/2018 Medications Active Medications SIG Qnty Indications Ordering Date Provider Tramadol HCL 1 tab every 12 10tabs Teresa Mahmood, 08/21/2018 50mg hours as needed for M.D. Tablets pain Coumadin 2.5 mg x7 days a Unknown [...] Vitamin B12 occasionally Unknown 1000mcg Tablets ER History Medications Tikosyn 1 by mouth twice [...] S32.89xD Ashley Reyes, 02/10/2015 - M.D. 01/05/2017 [place] take 1-2 tab po 60tabs [place], 02/01/2013 - 5-325mg Tablets every 4-6 hours M.D. 04/02/2013 as needed for pain Flecainide Acetate 1 1/2 tab by 270tabs I48.0 Jannet Albrecht, 02/23/2012 - mouth twice a M.D. 07/28/2015 50mg Tablets day Ultra Tart Ritter 1200mg 1 po Unknown - Extract three times 09/14/2018 daily Pantoprazole Sodium 1 by mouth every Unknown - day Am 01/12/[address] Pantoprazole Sodium 1 by mouth every Unknown - day 09/19/2017 40mg Solution Rec Amlodipine Besylate 1 by mouth every Unknown - day 02/02/2017 2.5mg Tablets Omeprazole Unknown - 02/14/2017 Gabapentin 1 tablet three Lisa Miles MD - 100mg times per day 02/14/2017 Capsules Penicillin V 1 tab po four Unknown - Potassium times a day 01/05/2017 500mg Tablets Vitamin B12 1 po x 3 times Unknown - 1000mg per week 01/05/2017 Vitamin D3 High 1 tab by mouth Unknown - Potency qhs 01/08/2016 1000Unit Capsules Qvar 2 puff twice a 1units Unknown - 80mcg/Act day 07/03/2018 Aerosol Calcium/Magnesium/Vi prn Unknown - t D 01/08/2016 Flonase 2 puff qd Unknown - 01/27/2014 Singulair 1 po qd 30tabs Unknown - 10mg 02/26/2014 Tablets Flovent Unknown - 01/27/2014 Losartan Potassium 1/2 tab by mouth 45tabs aJnnet Gutierrezer, - every day M.D. 01/28/2017 25mg Tablets Medications Administered in Office Medication SIG Qnty Indications Ordering Provider Date Inj, Regadenoson, 0.1 MG Bossman Herndon, DO FAC 01/26/2017 Injection Technetium TC 99M Bossman Herndon, DO FAC 01/26/2017 Tetrofosmin, Per Unit Dose Up To 40 Millicuries Injection Vital Signs Date Vital Result Comment 10/30/2018 11:32am Height 60 inches 5'0" Weight 126.00 lb Heart Rate 78 /min BP Systolic 136 mmHg BP Diastolic 70 mmHg Body Temperature 99.7 F Pain Level 4 BMI (Body Mass Index) 24.6 kg/m2 09/15/2018 8:49am Height 60 inches 5'0" Weight 128.00 lb with shoes Heart Rate 66 /min BP Systolic Sitting 128 mmHg ule reg cuff BP Diastolic Sitting 64 mmHg ule reg cuff BP Systolic Standing 124 mmHg ule reg cuff BP Diastolic Standing 64 mmHg ule reg cuff BMI (Body Mass Index) 25.0 kg/m2 Ejection Fraction 60-65% Echo 09/08/17 08/21/2018 2:08pm Height 60 inches 5'0" Weight [...] Date Facility Test Result H/L Range Note CBC Auto Diff 09/13/2018 [facility] White Blood 5.4 10^3/uL N 3.5-10.[address] [place] [address] [phone] Red Blood Count 4.50 10^6/uL N 3.70-4.87 Hemoglobin 13.6 g/dL N 12.0-16.0 Hematocrit 40 % N 35-47 Mean Corpuscular Volume 88 fL N 80-97 Mean Corpuscular Hemoglobin 30 pg N 27-31 Mean Corpuscular HGB Conc 34 g/dL N 31-36 Red Cell Distribution Width 14 % N 10.5-15 Platelet Count 274 10^3/uL N 150-450 Mean Platelet Volume 9.2 fL N 7.4-10.4 Abs Neutrophils 2.9 10^3/uL N 1.5-7.7 Abs Lymphocytes 1.9 10^3/uL N 1.0-4.8 Abs Monocytes 0.4 10^3/uL N 0-0.8 Abs Eosinophils 0.2 10^3/uL N 0-0.6 Abs Basophils 0.1 10^3/uL N 0-0.2 Abs Nucleated RBC 0.0 10^3/uL Granulocyte % 54.1 % Lymphocyte % 34.5 % Monocyte % 7.0 % Eosinophil % 3.4 % Basophil % 1.0 % Nucleated Red Blood Cells % 0.0 Urinalysis Profile 09/13/2018 [facility] Urine Color Yellow [address] [place] [address] [phone] Urine Appearance Clear Urine Specific [place] 1.009 Low 1.010-1.030 Urine pH 7.0 N 5-9 Urine Urobilinogen Negative Negative Urine Ketones Negative Negative Urine Protein Negative Negative Urine Leukocytes 1+ Abnormal Negative Urine Blood Negative Negative * * Abnormal Negative 1 Urine Nitrite Negative Negative Urine Bilirubin Negative Negative Urine Glucose Negative Negative Urine White Blood Cell Trace(0-5/hpf) Absent Urine Red Blood Cell Absent Absent Urine Bacteria Absent Absent Urine Squamous Epithelial Cell Present Abnormal Absent Comp Metabolic Panel 09/13/2018 [facility] Sodium 140 mmol/L N 135-[address] [place] [address] [phone] Potassium 4.0 mmol/L N 3.5-5.0 Chloride 105 mmol/L N 101-111 Co2 Carbon Dioxide 28 mmol/L N 22-32 Anion Gap 7 mmol/L N 2-11 Glucose 69 mg/dL Low 70-100 Blood Urea Nitrogen 15 mg/dL N 6-24 Creatinine 0.88 mg/dL N 0.51-0.95 BUN/Creatinine Ratio 17.0 N 8-20 Calcium 9.4 mg/dL N 8.6-10.3 Total Protein 6.9 g/dL N 6.4-8.9 Albumin 4.5 g/dL N 3.2-5.2 Globulin 2.4 g/dL N 2-4 Albumin/Globulin Ratio 1.9 N 1-3 Total Bilirubin 0.60 mg/dL N 0.2-1.0 Alkaline Phosphatase 95 U/L N 34-104 Alt 18 U/L N 7-52 Ast 21 U/L N 13-39 Egfr Non- 61.8 >60 Egfr 74.8 >60 2 Urine Culture And 09/13/2018 [facility] Urine Culture SEE RESULT [address] [place] [address] [phone] Basic Metabolic 06/26/2018 [facility] Sodium 140 mmol/L N 135- [address] [place] [address] [phone] Potassium 4.5 mmol/L N 3.5-5.0 Chloride 106 mmol/L N 101-111 Co2 Carbon Dioxide 28 mmol/L N 22-32 Anion Gap 6 mmol/L N 2-11 Glucose 85 mg/dL N 70-100 Blood Urea Nitrogen 18 mg/dL N 6-24 Creatinine 0.86 mg/dL N 0.51-0.95 BUN/Creatinine Ratio 20.9 High 8-20 Calcium 9.3 mg/dL N 8.6-10.3 Egfr Non- 63.7 >60 Egfr 77.0 >60 4 Laboratory test 06/26/2018 [facility] Magnesium 2.2 mg/dL N 1.9-2.7 5 finding [address] [place], [place] [id number] [phone] Inr/Protime 05/28/2017 [facility] Inr 1.91 High 0.77-1.02 [address] [place], [place] [id number] [phone] Inr/Protime 05/27/2017 [facility] Inr 1.96 High 0.77-1.02 [place] [address] [phone] Laboratory test 05/27/2017 [facility] Magnesium 2.4 mg/dL N 1.9-2.7 [place] [address] [phone] TSH (Thyroid Stim Horm) 4.58 mcIU/mL N 0.34-5.60 Basic Metabolic Panel 05/27/2017 [facility] Sodium 137 mmol/L N 133-145 [address] [place], [place] [id number] [phone] Potassium 4.5 mmol/L N 3.5-5.0 Chloride 103 mmol/L N 101-111 Co2 Carbon Dioxide 27 mmol/L N 22-32 Anion Gap 7 mmol/L N 2-11 Glucose 70 mg/dL N 70-100 Blood Urea Nitrogen 16 mg/dL N 6-24 Creatinine 1.05 mg/dL High 0.51-0.95 BUN/Creatinine Ratio 15.2 N 8-20 Calcium 9.6 mg/dL N 8.6-10.3 Egfr Non- 50.7 >60 Egfr 65.2 >60 7 Order 01/25/2017 [facility] Stress Test, <pending> [address] [place] [address] Echocardiogram [phone] Basic 08/02/2014 Sodium 138 mmol/L N 133- Metabolic 145 Panel Potassium 4.0 mmol/L N 3.5-5.0 Chloride 103 mmol/L N 101-111 Co2 Carbon Dioxide 27 mmol/L N 22-32 Anion Gap 8 mmol/L N 2-11 Glucose 85 mg/dL N 70-100 Blood Urea Nitrogen 19 mg/dL N 6-24 Creatinine 0.93 mg/dL N 0.51-0.95 BUN/Creatinine Ratio 20.4 High 8-20 Calcium 9.4 mg/dL N 8.6-10.3 Egfr Non- 58.8 N >60 Egfr 75.6 N >60 8 Laboratory test finding 08/02/2014 Magnesium 2.2 mg/dL N 1.9-2.7 TSH (Thyroid Stimulating Horm) 3.01 IU/mL N 0.34-5.60 Basic Metabolic Panel 09/06/2013 [facility] Sodium 140 mmol/L N 133-145 [address] [place] [address] [phone] Potassium 4.3 mmol/L N 3.7-5.6 Chloride 105 mmol/L N 101-111 Co2 Carbon Dioxide 29 mmol/L N 22-32 Anion Gap 6 mmol/L N 2-11 Glucose 96 mg/dL N 70-100 Blood Urea Nitrogen 16 mg/dL N 6-24 Creatinine 1.02 mg/dL High 0.51-0.95 BUN/Creatinine Ratio 15.7 N 8-20 Calcium 9.6 mg/dL N 8.6-10.3 Egfr Non- 52.8 N >60 Egfr 67.9 N >60 9 1 *Ascorbic acid is present which may interfere with detection of blood. 2 Because ethnic data is not always readily [...] 15-29 5 Kidney failure <15 (or dialysis) 3 SEE RESULT BELOW Name: MARIA ELENA BRYAN : [address]: Lisa Miles MD Acct: [id number] Unit: [id number] AGE: 78 Location: [facility] Re09/13/18 SEX: F Status: REG REF SPEC: [id number] [place]: 09/13/[address] [facility] DR: Lisa Miles MD REQ: [id number] RECD: 09/13/18 STATUS: MISTY HAZEL DR: Teresa Albrecht MD _ SOURCE: URINE SPDESC: ORDERED: Urine Culture COMMENTS: Procedure Result Reported Site Urine Culture Final 09/14/18- 1249 ML No Growth (<1,000 CFU/mL) * ML - Main Lab . END OF REPORT DEPARTMENT OF PATHOLOGY, [address] [place] [address] Anjel Segura M.D. Director [facility] # [id number] 4 Because ethnic data is not always [...] 15-29 5 Kidney failure <15 (or dialysis) 03 February or March Copy Result to: LISA MILES ([id number]) 6 INR 1.91 today, prescribed 1 mg/kg lovenox to take today, tomorrow AM and tomorrow PM. Her usual coumadin dosing is 2.5 mg po daily except Fridays are 5 mg. She will take 5 mg tonight instead of usual 2.5 mg then 2.5 mg tomorrow and have INR checked Tuesday at PCP office 7 Because ethnic data is not always readily [...] 15-29 5 Kidney failure <15 (or dialysis) 8 Because ethnic data is not always [...] 5 Kidney failure <15 (or dialysis) 9 Because ethnic data is not always readily [...] (or dialysis) Procedures Date Code Description Status 09/15/2018 67508 EKG Tracing & Interpretation Completed 07/11/2018 61447 EKG Tracing & Interpretation Completed 01/13/2018 43993 EKG Tracing & Interpretation Completed 09/20/2017 09321 EKG Tracing & Interpretation Completed 09/20/2017 25286 EKG Tracing & Interpretation Completed 09/08/2017 36047 ECHO Transthoracic, Real-Time 2D With Doppler And Color Completed Flow 09/08/2017 25590 ECHO Transthoracic, Real-Time 2D With Doppler And Color Completed Flow 09/02/2017 58235 EKG Tracing & Interpretation Completed 06/17/2017 00257 EKG Tracing & Interpretation Completed 06/04/2017 30754 EKG, Interpretation Only Completed 06/03/2017 17366 EKG, Interpretation Only Completed 06/02/2017 29815 Moderate Sedation Services; Same Phys Intl 15 Mins; PT >=5 Completed Years 06/02/2017 19614 EKG, Interpretation Only Completed 06/01/2017 57267 EKG, Interpretation Only Completed 05/27/2017 31259 EKG, Interpretation Only Completed 05/27/2017 51800 EKG Tracing & Interpretation Completed 05/27/2017 92377 Cardioversion Completed 03/01/2017 83510 Stress Test Completed 03/01/2017 57973 Stress Test Completed 03/01/2017 48247 Stress Test Completed 02/23/2017 40005 ECHO Transthoracic, Real-Time 2D With Doppler And Color Completed Flow 02/23/2017 62719 ECHO Transthoracic, Real-Time 2D With Doppler And Color Completed Flow 02/15/2017 86645 EKG Tracing & Interpretation Completed 02/06/2017 86593 Holter Monitor Review (24 hr)dr review & interp only Completed 02/04/2017 23327 ECG Monitor/Recording W/Visual Superimposition Scanning Completed 02/03/2017 39536 ECG Monitor/Recording W/Visual Superimposition Scanning Completed 01/26/2017 89724 Stress Test Completed 01/26/2017 13231 Myocardial Perfusion Imaging Tomographic (Spect) Multiple Completed Studies 01/25/2017 73828 ECHO Stress Test Incl Perf Contiuous ekg Monitoring W/Phys Completed Superv 08/06/2016 16859 EKG Tracing & Interpretation Completed 01/09/2016 42503 EKG Tracing & Interpretation Completed 07/28/2015 36812 EKG Tracing & Interpretation Completed 01/15/2015 10014 EKG Tracing & Interpretation Completed 08/09/2014 42896 EKG Tracing & Interpretation Completed 04/04/2013 31228 Holter Monitoring 24 HR New Completed 04/04/2013 18830 EKG Tracing & Interpretation Completed 02/01/2013 69954 ECHO Transthoracic, Real-Time 2D With Doppler And Color Completed Flow 01/31/2013 74671 EKG Tracing & Interpretation Completed 01/24/2013 10889 Xray Knee 3 Views Completed 04/05/2012 43647 EKG Tracing & Interpretation Completed 03/30/2012 58830 ECHO Transthoracic, Real-Time 2D With Doppler And Color Completed Flow Encounters Type Date Location Provider Dx Diagnosis Office Visit 09/15/2018 [facility] Jannet Albrecht, Z01.810 Encounter for 8:40a Of Social Work Coordinator AT [facility] M.D. preprocedural cardiovascular examination I48.0 Paroxysmal atrial fibrillation I34.0 Nonrheumatic mitral (valve) insufficiency I36.1 Nonrheumatic tricuspid (valve) insufficiency M16.11 Unilateral primary osteoarthritis, right hip Office Visit 08/21/2018 2:00p [facility] Teresa Mahmood, M25.551 Pain in right Of C.M.A. M.D. hip M16.11 Unilateral primary osteoarthritis, right hip Office Visit 07/11/2018 9:45a [facility] Jannet Albrecht, I48.0 Paroxysmal atrial Of Social Work Coordinator M.D. fibrillation I34.0 Nonrheumatic mitral (valve) insufficiency R00.2 Palpitations I49.3 Ventricular premature depolarization R21 Rash and other nonspecific skin eruption Office Visit 07/03/2018 1:30p [facility] Teresa Mahmood, M25.551 Pain in right Of C.M.A. M.D. hip M16.11 Unilateral primary osteoarthritis, right hip Office Visit 01/13/2018 1:10p [facility] Jannet Albrecht I48.0 Paroxysmal atrial Of Social Work Coordinator M.D. fibrillation Office Visit 10/11/2017 10:00a [facility] Jannet Albrecht I48.0 Paroxysmal atrial Of Social Work Coordinator M.D. fibrillation I34.0 Nonrheumatic mitral (valve) insufficiency I36.1 Nonrheumatic tricuspid (valve) insufficiency Office Visit 09/20/2017 2:30p [facility] Nicky Nielson I48.0 Paroxysmal atrial Of [facility] Foster, N.P. fibrillation I34.0 Nonrheumatic mitral (valve) insufficiency I10 Essential (primary) hypertension R53.83 Other fatigue Office Visit 09/02/2017 10:00a Alicja Albrecht I48.0 Paroxysmal atrial Cardiology Of M.D. fibrillation Social Work Coordinator AT [facility] Office Visit 06/17/2017 8:20a Alicja Albrecht I48.0 Paroxysmal atrial Cardiology Of M.D. fibrillation Social Work Coordinator AT [facility] Office Visit 06/04/2017 2:53p Gail Nielson I48.91 Unspecified atrial Cardiology [place], fibrillation M.D. Office Visit 06/04/2017 10:18a Alicja Albrecht I48.0 Paroxysmal atrial Cardiology Of M.D. fibrillation Social Work Coordinator Z51.81 Encounter for therapeutic drug level monitoring Office Visit 06/03/2017 11:34a [facility] Jannet Albrecht I48.0 Paroxysmal atrial Of Social Work Coordinator M.D. fibrillation Office Visit 06/02/2017 4:00p [facility] Jannet Albrecht I48.0 Paroxysmal atrial Of Social Work Coordinator M.D. fibrillation I49.3 Ventricular premature depolarization Office Visit 06/01/2017 9:00a [facility] Jannet Albrecht I48.0 Paroxysmal atrial Of Social Work Coordinator AT [facility] M.D. fibrillation Z79.01 care home (current) use of anticoagulants Z51.81 Encounter for therapeutic drug level monitoring Office Visit 05/27/2017 10:30a [facility] Nicky Nielson I48.1 Persistent atrial Of Social Work Coordinator AT [facility] Foster, N.P. fibrillation I10 Essential (primary) hypertension I34.0 Nonrheumatic mitral (valve) insufficiency I36.1 Nonrheumatic tricuspid (valve) insufficiency Office Visit 04/14/2017 2:45p [facility] Jannet Albrecht I48.0 Paroxysmal atrial Of Social Work Coordinator M.D. fibrillation I10 Essential (primary) hypertension I34.0 Nonrheumatic mitral (valve) insufficiency I36.1 Nonrheumatic tricuspid (valve) insufficiency Office Visit 02/15/2017 8:00a [facility] Jannet [place], I48.0 Paroxysmal atrial Of Social Work Coordinator M.D. fibrillation I49.1 Atrial premature depolarization I49.3 Ventricular premature depolarization R42 Dizziness and giddiness Office Visit 01/28/2017 3:30p [facility] Jannet Albrecht, R42 Dizziness and Of Social Work Coordinator M.D. giddiness I48.0 Paroxysmal atrial fibrillation K21.9 Gastro-esophageal reflux disease without esophagitis E87.6 Hypokalemia Office Visit 08/06/2016 3:30p [facility] Jannet Albrecht, I48.0 Paroxysmal atrial Of Social Work Coordinator M.D. fibrillation R07.9 Chest pain, unspecified K02.9 Dental caries, unspecified Office Visit 01/09/2016 3:00p [facility] Jannet Albrecht, I48.0 Paroxysmal atrial Of Social Work Coordinator M.D. fibrillation I34.0 Nonrheumatic mitral (valve) insufficiency I10 Essential (primary) hypertension Office Visit 07/28/2015 8:30a [facility] Jannet Albrecht, I48.0 Paroxysmal atrial Of Social Work Coordinator M.D. fibrillation I34.0 Nonrheumatic mitral (valve) insufficiency Office 03/06/2015 [facility] S32.89xD Fracture of oth parts Visit 10:40a Services Of Shobha Reyes of pelvis, subs for C.M.A. fx w [facility] Office 02/10/2015 [facility] Ashley S32.89xD Fracture of oth parts Visit 10:50a Services Of Shobha Reyes of pelvis, subs for C[facility]M.A. fx w [facility] Office 01/20/2015 [facility] Zulma S32.89xA Fracture of oth parts Visit 2:40p Services Of DANIEL Bragg of pelvis, init for C.M.A. clos fx Office 01/15/2015 [place] Jannet Albrecht, 794.31 Electrocardiogram Visit 3:45p Cardiology Of M.D. (ECG) (EKG) Abnormal Social Work Coordinator 427.31 Atrial Fibrillation 424.0 Mitral Valve Disorder Office Visit 08/09/2014 3:00p Alicja Albrecht 427.31 Atrial Cardiology Of M.D. Fibrillation Social Work Coordinator Office Visit 02/26/2014 10:30a [place] Jannet Albrecht 427.31 Atrial Cardiology Of M.D. Fibrillation Social Work Coordinator 424.0 Mitral Valve Disorder Office Visit 04/04/2013 11:15a [facility] Nurse Visit 785.1 Palpitations Of [facility] IC Office Visit 01/31/2013 11:15a [facility] Jannet 427.31 Atrial Fibrillation Of [facility] Shobha Albrecht V72.84 Examination Preoperative Unspec 396.3 Mitral & Aortic Valve Insufficiency Office Visit 01/24/2013 3:00p [facility] [place] 836.0 Dislocation Knee Services Of Shobha Dai Tear Of Medial C.M.A. Cartilage Or Meniscus Curren Office Visit 04/05/2012 8:30a [place] Jannet Albrecht, 427.31 Atrial Cardiology Of M.DHarry Fibrillation [facility] 394.1 Rheumatic Mitral Insufficiency 785.1 Palpitations Plan of Treatment Future Appointment(s):11/09/2018 4:00 pm - DANIEL Earl at [facility]11/09/2018 4:00 pm - SABINE Coffman at [facility]11/09/2018 4:00 pm - SABINE Coyne at [facility]01/09/2019 11:15 am - Jannet Albrecht M.D. at [facility]2018 4:00 pm - Teresa Mahmood M.D. at [facility]10/30/2018 - Gala Perez PAM25.551 Pain in right hipFollow up:Follow up: 2 weeks after egvimylT82.11 Unilateral primary osteoarthritis, right hip
[2018-11-09] MEDS ORDERED: Propofol* 10 MG/ML 20 ML BTL ONE ×2 (13:25→15:26)
[2018-11-09] MEDS ORDERED: Lidocaine 2% MPF* 2 ML VIAL ONE (13:25)
[2018-11-09] MEDS ORDERED: Ondansetron INJ* 2 MG/ML VIAL ONE (13:25)
[2018-11-09] MEDS ORDERED: Dexamethasone IV* 4 MG/ML 1 ML (4 MG) ONE (13:25)
[2018-11-09] MEDS ORDERED: fentaNYL* 50 MCG/ML 2 ML VIAL (100 MCG VIAL) ONE (13:26)
[2018-11-09] MEDS ORDERED: Midazolam* 1 MG/ML 10 ML VIAL (10 MG) ONE (13:26)
[2018-11-09] MEDS ORDERED: KETAMINE HCL* 50 MG/ML 10 ML VIAL ONE (13:26)
[2018-11-09 13:51] LABS: Activated Partial Thrombo Time 35.3 seconds (26.0-38.0); INR 1.09 (0.82-1.09)
[2018-11-09] MEDS ORDERED: Bupivacaine 0.5% SDV PF* 30ML VIAL ONE (15:15)
[2018-11-09] MEDS ORDERED: Bupivacaine 0.5%* 50 ML VIAL ONE (15:56)
[2018-11-09] MEDS ORDERED: Naloxone* 0.4 MG/ML 1 ML VIAL IV PRN (16:16)
[2018-11-09] MEDS ORDERED: fentaNYL* 50 MCG/ML 2 ML VIAL (100 MCG VIAL) IV PRN (16:16)
[2018-11-09] MEDS ORDERED: Ondansetron INJ* 2 MG/ML VIAL IV PRN ×2 (16:16→18:00)
[2018-11-09] MEDS ORDERED: HYDROmorphone INJ1* 1 MG/ML SYRINGE IV PRN (16:16)
[2018-11-09] MEDS ORDERED: Ketorolac INJ* 30 MG/ML 1 ML VIAL ONE (16:31)
--- NOTE | 2018-11-09 17:44 | OP ---
Operative Report - Blank - Operative Report Date of Operation: 11/09/18 Note: TAWANA ALDRIDGE 1940 Date Of Surgery: 11/09/18 Teresa Mahmood MD Fuels Engineer: Grace REGALADO did help throughout the procedure with preparation of the hip, wound retraction, manipulation of the hip, and wound closure. Anesthesiologist: Dami Knox MD Anesthesia Type: General Preoperative Diagnosis: Right severe degenerative osteoarthritis of the hip Postoperative Diagnosis: As above Procedure Performed: Right Total Hip Arthroplasty Complications: None Specimen: Femoral head and acetabular reamings sent to pathology. Hardware used: This is uncemented Kimberly total hip arthroplasty hardware for the femur a size 3 accolade II with 127 neck right femoral component, for the acetabulum a size 46C trident II tritanium cluster hole shell, 2 15 mm screws, for the insert a size 32 C polyethylene insert, and for the femoral head a size 32+0 ceranuc V40 femoral head. Brief history/Indication: TAWANA ALDRIDGE was known in clinic and had a history of severe right hip pain. She failed conservative treatment with anti- inflammatories, pain pills, intra-articular injections and physical therapy. She elected to undergo right total hip arthroplasty due to continued pain and decreased quality of life. Radiographs showed severe end stage osteoarthritis of the hip with bone on bone contact. Informed consent was obtained from the patient. She understood the risks of surgery included but were not limited to: bleeding, infection, damage to nearby structures, intraoperative fracture, nerve palsy, failure of the hardware, early loosening, stiffness or loss of motion, dislocation, leg length discrepancy, anesthesia complications, stroke, heart attack, blood clot and . She wished to proceed. Intra-Operative findings: Intraoperatively the patient was noted to have severe loss of cartilage of the acetabulum and femoral head. Description of the Procedure: TAWANA ALDRIDGE was identified in the preanesthesia unit. Her right hip was marked as the correct operative side. Informed consent was signed and placed in the chart. The patient was taken to the operating room and placed under anesthesia without complication. A cordova catheter was placed. The patient was placed on the peg board with all bony prominences well padded. The right lower extremity was prepped and draped in the usual sterile fashion. Preoperative time-out was made to correctly identify the patient, side and site. Appropriate intraoperative antibiotics were given within one hour of incision. A standard posterior incision was made and carried sharply down to the lateral fascia. A new 10 blade was used to make an incision in the fascia in line with the skin incision. A charnley retractor was placed. The piriformis and conjoined tendons were identified and elevated off the posterolateral femur using electrocautery. These were tagged with number 5 Ethibond. Next electrocautery was used to make a posterolateral capsular flap and this was tagged with number 5 Ethibonds. The hip was carefully dislocated. Lesser trochanter to the center of the femoral head was measured at 52 mm. The oscillating saw was used to make the femoral neck cut. The femoral head was carefully removed. The femur was retracted anteriorly and the acetabular retractors were placed. Long-handled knife was used to sharply remove any remaining labrum from the acetabular rim. The acetabulum was sequentially reamed up to a size 45. A bleeding subchondral bone bed was obtained. A trial liner was placed and had excellent fit and stability. A 46C trident II tritanium cup with 2 15 mm screws was placed and had excellent stability with appropriate anteversion and abduction angle. A size 32 C polyethylene trident x3 liner was impacted into the acetabular shell. The liner was checked for stability and was stable. Next attention was turned to preparation of the femoral canal. A canal finder was used to enter the proximal femur. The femoral canal was sequentially broached up to a size 3 femoral broach trial. A trial neck and 32 + 0 trial femoral head was chosen. Lesser trochanter to center of the femoral head measurement was satisfactory. The hip was reduced and taken through a range of motion. The hip was stable in all positions with good soft tissue tension and appropriate leg lengths. The hip was dislocated and all trials were removed. The final implant chosen was a accolade II size 3 with 127 neck angle. This stem was impacted into the femoral canal without difficulty. The stem was stable with appropriate anteversion. The femoral head chosen was a 32 + 0 ceramic head. The head was impacted onto the femoral neck without difficulty. The final lesser trochanter to center of the femoral head measurement was satisfactory. The hip was reduced and taken through a range of motion. The hip was stable in all positions with good soft tissue tension and appropriate leg lengths. The hip was copiously irrigated with sterile saline. The previously tagged capsule and tendons were repaired to the posterolateral femur through two trochanteric drill holes. The lateral fascia layer was closed using number 1 vicryls. The rest of the incision was closed in a layered fashion using 0 and 2-0 vicryls. The skin was closed using 3-0 monocryl suture and Dermabond. Sterile adaptic, 4x4s and paper tape was used to cover the incision. The patients anesthesia was reversed without difficulty. She was taken to the PACU in stable condition. Intended weight-bearing will be as tolerated with posterior hip precautions.
[2018-11-09] MEDS ORDERED: Magnesium Hydroxide LIQ* 30 ML UDC PO PRN (17:45)
[2018-11-09] MEDS ORDERED: Bisacodyl SUPP* 10 MG SUPP PR PRN (18:00)
[2018-11-09] MEDS ORDERED: diPHENhydraMINE IV* 50 MG/ML 1 ml VIAL (BENADRYL) IV PRN (18:00)
[2018-11-09] MEDS ORDERED: diPHENhydraMINE PO* 25 MG PO PRN (18:00)
[2018-11-09] MEDS ORDERED: Temazepam CAP* 15 MG PO PRN (18:00)
[2018-11-09] MEDS ORDERED: Ondansetron ODT TAB* 4 MG PO PRN (18:00)
[2018-11-09] MEDS ORDERED: Morphine 4 MG/ML VIAL (1 ml) 4 MG/ML VIAL IV PRN (18:00)
[2018-11-09] MEDS ORDERED: Cyclobenzaprine TAB* 10 MG PO PRN (18:00)
[2018-11-09] MEDS ORDERED: Polyethylene Glycol 3350* 17 GM PACKET PO PRN (18:00)
--- NOTE | 2018-11-09 19:29 | CONS ---
CC: Dr. Anil Vargas; Dr. Matteo Elizabeth; Dr. Teresa Mahmood * CONSULTATION REPORT: DATE OF CONSULT: 11/09/18 PRIMARY CARE PROVIDER: Dr. Anil Vargas. MY ATTENDING WHILE IN THE HOSPITAL: Dr. Matteo Elizabeth. CONSULTING PROVIDER: Dr. Teresa Mahmood. REASON FOR CONSULT: Comanagement of comorbid medical conditions. HISTORY OF PRESENT ILLNESS: Ms. Bryan is an 78-year-old female with past medical history significant for AFib with an embolic stroke related to this; breast cancer, status post mastectomy, and hypertension, who is status post right total hip arthroplasty. The patient is feeling well postoperatively. The patient does not have sensation from her waist down yet, but is regaining movement and sensation in her lower extremities. The patient denies fevers, chills, dizziness, nausea, vomiting, chest pain, or shortness of breath. The patient recently has not had any decrease in exercise tolerance. No fevers or chills. No sick contacts. No abdominal pain, diarrhea, dysuria, hematuria, syncope, or other illness. The patient was evaluated by her primary care provider and her district ranger for preoperative optimization. PAST MEDICAL HISTORY: AFib; hypertension; left-sided breast cancer, status post mastectomy; history of stroke with residual dysarthria; macular degeneration. PAST SURGICAL HISTORY: Left mastectomy, ovarian cyst removal, foot surgery, radiofrequency cardiac ablation in July 2017. CURRENT MEDICATIONS: 1. Coumadin 2.5 mg p.o. daily. 2. PreserVision 1 tab p.o. daily. 3. Potassium chloride 20 mEq p.o. b.i.d. 4. Zyrtec 10 mg p.o. daily. 5. Magnesium 250 mg p.o. b.i.d. 6. Vitamin D 2000 units p.o. daily. The patient does not take this every day. The patient last took her Coumadin on 11/03/18. ALLERGIES: TETRACYCLINE, SUDAFED, DOXYCYCLINE, PROTONIX, BIAXIN. FAMILY HISTORY: The patient's father of old age. The patient's mother had CHF, but of old age. Per the patient, the patient has a brother who is alive at 72 with diabetes mellitus and dementia. The patient has a sister who of complications of pulmonary hypertension. SOCIAL HISTORY: The patient drinks 1 glass of wine nightly. The patient smoked remotely and not in large amount. The patient never used illicit drugs. The patient is . The patient has several children. The patient used to work as a assistant professor of economicsprofessor of theater. The patient's surrogate decision maker will be her , Santana Bryan or her children, Grace Bryan or Ayden Bryan. REVIEW OF SYSTEMS: A 14-point review of systems was reviewed and it is negative except as above in the HPI. PHYSICAL EXAM: General: The patient is an 78-year-old female who appears stated age, sitting comfortably in bed, in no acute distress. Vital Signs: At the time of evaluation, temperature 97.5, pulse rate 74, respiratory rate 18, oxygen saturation 100% on 3 L, blood pressure 151/64. HEENT: Head: Normocephalic, atraumatic. Sclerae anicteric. No conjunctival injection. Nasal mucosa moist. Oral mucosa moist. No oropharyngeal erythema, discharge, or exudate. Neck: Supple, nontender. No lymphadenopathy. No carotid bruits auscultated. No JVD. Cardiac: Regular rate and rhythm. Occasional PVC. No clicks, murmurs, gallops, or rubs. Pulses are 2+ in the bilateral dorsalis pedis, posterior tibialis, and radial areas. Respiratory: Clear to auscultation bilaterally. No wheezes, rales, or rhonchi. Good air exchange bilaterally. Abdomen: Soft, nontender, nondistended. Bowel sounds present and normoactive in all 4 quadrants. No hepatosplenomegaly. No abdominal bruits auscultated. No hepatojugular reflux. Genitourinary: No suprapubic or CVA tenderness. Lopes catheter in place, draining clear yellow urine. Skin: Clean, dry, intact. No rash. Right-sided hip incision covered with bulky dressing without drainage. Neuro: Cranial nerves II through XII intact. No focal deficits. She is alert and oriented x3. Psychiatric: Pleasant and cooperative. DIAGNOSTIC STUDIES/LAB DATA: Laboratory data preoperatively: White blood cell count 6.1, hemoglobin 13.8, platelet count 58. Coagulation 1.09, APT 35.3. Chemistry: Sodium 140, potassium 4.1, chloride 105, carbon dioxide 30, anion gap 5, BUN 16, creatinine 0.81, glucose 78, calcium 9.6, magnesium 2.2. Bilirubin 0.5, AST 28, ALT 26, alkaline phosphatase 101. Protein 7.2, albumin 4.3, globulin 4.7. Urine shows squamous epithelial cells and ascorbic acid. ASSESSMENT AND PLAN: Impression: Ms. Bryan is an 78-year-old female with past medical history significant for atrial fibrillation complicated by a stroke ; breast cancer, status post mastectomy, and hypertension, who is status post a right total hip arthroplasty and is doing well. 1. Postoperative state. The patient's management per orthopedics. The patient prescribed a bowel regimen, PT/OT, pain control. Her Lopes removed at the earliest possible time. DVT prophylaxis with Coumadin bridged with full dose Lovenox. 2. Atrial fibrillation. The patient is currently in normal sinus rhythm. The patient had radiofrequency ablation. The patient would be resumed on her Coumadin bridged with Lovenox and will be monitored on telemetry postoperatively. The patient will have her electrolytes checked and optimized postoperatively. 3. Hypertension. The patient is on no medications for this. The patient will be monitored closely and treated as appropriately. The patient is more likely go hypotensive given spinal anesthesia postoperatively. 4. History of breast cancer, status post mastectomy. 5. History of stroke related to Coumadin. Full dose anticoagulation and Coumadin as above. 6. DVT prophylaxis: As above. 7. FEN: The patient will have a heart healthy, but regular unrestricted diet and fluids until she is able to tolerate. Adequate oral intake. TIME SPENT: Approximately 60 minutes was spent on this consultation, 20 of which was spent face to face with the patient obtaining history and physical and discussing the treatment plan. This plan was discussed with my attending, Dr. Matteo Elizabeth, and he is in agreement. SABINE WISEMAN [id number]/[facility] #: [id number] DANNY
[2018-11-09] MEDS: Lactated Ringers 1000 ML Bag* 1,000 ML IV SCH (20:03)
[2018-11-09] MEDS ORDERED: MAGNESIUM OXIDE 250 MG PO SCH (21:00)
[2018-11-09] MEDS ORDERED: oxyCODONE/Acetamin 5/325 MG* TAB ONE (21:10)
[2018-11-09] MEDS: oxyCODONE/Acetamin 5/325 MG* TAB PO PRN (21:11)
[2018-11-09] MEDS: Acetaminophen TAB* 325 MG PO SCH (21:58)
[2018-11-09] MEDS: Multivitamins/Mins (NF) AREDS2 1 CAP CAP PO SCH (22:04)
[2018-11-09] MEDS: Docusate CAP* 100 MG PO SCH (22:05)
[2018-11-09] MEDS: Potassium Chlor TAB* 20 MEQ TAB.ER PO SCH (22:05)
[2018-11-09] MEDS: Magnesium Hydroxide LIQ* 30 ML UDC PO SCH (22:05)
[2018-11-09] MEDS: Ferrous Sulfate TAB* 325 MG PO SCH (22:05)
[2018-11-09] MEDS: Warfarin TAB(*) 2.5 MG PO SCH (22:06)
[2018-11-09] MEDS: ceFAZolin 1 GM ADVAN(*) 1 GM in NS 0.9% 50 ML* 50 ML IVPB SCH (23:28)
[2018-11-10] MEDS: oxyCODONE/Acetamin 5/325 MG* TAB PO PRN ×4 (02:30→16:23)
[2018-11-10] MEDS: Acetaminophen TAB* 325 MG PO SCH ×4 (05:32→21:06)
[2018-11-10] MEDS: Lactated Ringers 1000 ML Bag* 1,000 ML IV SCH (06:24)
[2018-11-10 06:56] LABS: Hematocrit 32 % (35-47); Hemoglobin 11.4 g/dL (12.0-16.0); Platelet Count 221 10^3/uL (150-450)
[2018-11-10 07:00] LABS: INR 1.16 (0.82-1.09)
[2018-11-10 07:13] LABS: BUN/Creatinine Ratio 16.7 (8-20); Calcium 9.1 mg/dL (8.6-10.3); EGFR Non-African American 71.1 (>60); Magnesium 2.1 mg/dL (1.9-2.7); Potassium 4.7 mmol/L (3.5-5.0)
[2018-11-10] MEDS: ceFAZolin 1 GM ADVAN(*) 1 GM in NS 0.9% 50 ML* 50 ML IVPB SCH ×2 (07:34→15:15)
[2018-11-10] MEDS: BECLOMETHASONE INH SCH (09:00)
[2018-11-10] MEDS: Magnesium Hydroxide LIQ* 30 ML UDC PO SCH ×2 (09:00→21:01)
[2018-11-10] MEDS: Docusate CAP* 100 MG PO SCH ×2 (09:01→21:00)
[2018-11-10] MEDS: Magnesium Oxide TAB* 400 MG PO SCH ×2 (09:01→21:00)
[2018-11-10] MEDS: Potassium Chlor TAB* 20 MEQ TAB.ER PO SCH ×2 (09:01→21:00)
[2018-11-10] MEDS: Vitamin THERAPEUTIC TAB PO SCH (09:01)
[2018-11-10] MEDS: Ferrous Sulfate TAB* 325 MG PO SCH ×2 (09:01→21:00)
[2018-11-10] MEDS: Enoxaparin(*) 60 MG/0.6 ML SYR SUBCUT SCH ×2 (09:03→21:06)
[2018-11-10] MEDS: Multivitamins/Mins (NF) AREDS2 1 CAP CAP PO SCH ×2 (09:09→21:06)
--- NOTE | 2018-11-10 10:05 | PN ---
Subjective Date of Service: 11/10/18 Interval History: Patient is feeling well today. Patient states the pain in her hip is 2/10. Patient had one episode of dizziness and nausea on standing. Patient denies F/C , CP, SOB, dysuria, abdominal pain, or other pain. Family History: Unchanged from Admission Social History: Unchanged from Admission Past Medical History: Unchanged from Admission Objective Active Medications: Acetaminophen (Tylenol Tab*) 975 mg PO Q8HR [facility] Last Admin: 11/10/18 05:32 Dose: Not Given Bisacodyl (Dulcolax Supp*) 10 mg OK DAILY PRN PRN Reason: constipation Cetirizine HCl (Zyrtec*) 10 mg PO QPM EAD Cyclobenzaprine HCl (Flexeril Tab*) 5 mg PO TID PRN PRN Reason: SPASMS Diphenhydramine HCl (Benadryl Iv*) 25 mg IV Q6H PRN PRN Reason: itching Diphenhydramine HCl (Benadryl Po*) 25 mg PO Q6H PRN PRN Reason: itching Docusate Sodium (Colace Cap*) 100 mg PO BID [facility] Last Admin: 11/10/18 09:01 Dose: 100 mg Enoxaparin Sodium (Lovenox(*)) 50 mg SUBCUT Q12H [facility] Last Admin: 11/10/18 09:03 Dose: 50 mg Ferrous Sulfate (Ferrous Sulfate Tab*) 325 mg PO BID [facility] Last Admin: 11/10/18 09:01 Dose: 325 mg Cefazolin Sodium 1 gm/ Sodium (Chloride) 50 mls @ 200 mls/hr IVPB Q8H [facility] Stop: 11/10/18 15:44 Last Admin: 11/10/18 07:34 Dose: 200 mls/hr Lactated Ringer's (Lactated Ringers 1000 Ml Bag*) 1,000 mls @ 100 mls/hr IV PER RATE [facility] Last Admin: 11/10/18 06:24 Dose: 100 mls/hr Lactulose (Lactulose*) 30 ml PO Q6H PRN PRN Reason: constipation Magnesium Hydroxide (Milk Of Magnesia Liq*) 30 ml PO BID [facility] Last Admin: 11/10/18 09:00 Dose: 30 ml Magnesium Hydroxide (Milk Of Magnesia Liq*) 30 ml PO Q6H PRN PRN Reason: constipation Magnesium Oxide (Magox 400 Tab*) 400 mg PO BID [facility] Last Admin: 11/10/18 09:01 Dose: 400 mg Morphine Sulfate (Morphine 4 Mg/Ml Vial (1 Ml)) 2 mg IV Q2H PRN PRN Reason: PAIN - UNRELIEVED Multivitamins (Theragran Tab*) 1 tab PO DAILY [facility] Last Admin: 11/10/18 09:01 Dose: 1 tab Multivitamins/Minerals (Preservision Areds 2) 1 cap PO BID [facility] Last Admin: 11/10/18 09:09 Dose: Not Given Pto Nf Med* Qvar 100 Mcg (Beclomethasone Inh) 1 admin INH DAILY WITH MEAL [facility] Last Admin: 11/10/18 09:00 Dose: 1 admin Ondansetron HCl (Zofran Inj*) 4 mg IV Q6H PRN PRN Reason: nausea Ondansetron HCl (Zofran Odt Tab*) 4 mg PO Q6H PRN PRN Reason: NAUSEA Oxycodone HCl (Roxycodone Tab*) 10 mg PO Q4H PRN PRN Reason: PAIN - SEVERE Oxycodone/Acetaminophen (Percocet 5/325 Tab*) 2 tab PO Q4H PRN PRN Reason: PAIN - MODERATE Last Admin: 11/10/18 06:35 Dose: 2 tab Polyethylene Glycol/Electrolytes (Miralax*) 17 gm PO DAILY PRN PRN Reason: Constipation Potassium Chloride (Klor Con Er Tab*) 20 meq PO BID [facility] Last Admin: 11/10/18 09:01 Dose: 20 meq Temazepam (Restoril Cap*) 15 mg PO BEDTIME PRN PRN Reason: INSOMNIA Warfarin Sodium (Coumadin Tab(*)) 2.5 mg PO DAILY@1700 [facility]; Protocol Last Admin: 11/09/18 22:06 Dose: 2.5 mg Vital Signs - 8 hr 11/10/18 11/10/18 11/10/18 02:30 04:24 04:30 Temperature 97.7 F Pulse Rate 61 Respiratory 18 16 16 Rate Blood Pressure 106/52 (mmHg) O2 Sat by Pulse 100 Oximetry 11/10/18 11/10/18 11/10/18 06:35 07:52 08:00 Temperature 97.7 F Pulse Rate 66 Respiratory 18 18 18 Rate Blood Pressure 94/57 (mmHg) O2 Sat by Pulse 92 Oximetry 11/10/18 08:59 Temperature Pulse Rate Respiratory 18 Rate Blood Pressure (mmHg) O2 Sat by Pulse Oximetry Oxygen Devices in Use Now: None Appearance: Patient is an 78yo female who appears younger than stated age and is sitting in the bed in NAD. Eyes: No Scleral Icterus, PERRLA Ears/Nose/Mouth/Throat: NL Teeth, Lips, Gums, Clear Oropharnyx, Mucous Membranes Moist Neck: NL Appearance and Movements; NL JVP, Trachea Midline Respiratory: Symmetrical Chest Expansion and Respiratory Effort, Clear to Auscultation Cardiovascular: NL Sounds; No Murmurs; No JVD, RRR, No Edema Abdominal: NL Sounds; No Tenderness; No Distention, No Hepatosplenomegaly Lymphatic: No Cervical Adenopathy Extremities: No Edema, No Clubbing, Cyanosis Skin: No Nodules or Sclerosis, - - Right Hip incision covered in bulky dressing CDI. Neurological: Alert and Oriented x 3, NL Sensation, NL Muscle Strength and Tone , - - CN II-XII intact. Result Diagrams: 11/10/18 06:24 11/10/18 06:24 Assess/Plan/Problems-Billing Assessment: Patient is an 78yo female with a PMH for Afib complicated by CVA, HTN who is S/ P RTHA and is doing well. - Patient Problems (1) Post-operative state Current Visit: Yes Status: Acute Code(s): Z98.890 - OTHER SPECIFIED POSTPROCEDURAL STATES SNOMED Code(s): 04338982 Comment: - Management per orthopedics - PT/OT, Bowel Regimen, Pain control - Trend H/H (2) Afib Current Visit: Yes Status: Acute Code(s): I48.91 - UNSPECIFIED ATRIAL FIBRILLATION SNOMED Code(s): 04930884 Comment: - In SR on monitor. History of stroke - Full dose Lovenox bridge to Coumadin. - INR increasing slowly on home dose. (3) HTN (hypertension) Current Visit: Yes Status: Acute Code(s): I10 - ESSENTIAL (PRIMARY) HYPERTENSION SNOMED Code(s): 60576746 Comment: - On no meds, is now borderline hypotensive. (4) DVT prophylaxis Current Visit: Yes Status: Acute Code(s): Z29.9 - ENCOUNTER FOR PROPHYLACTIC MEASURES, UNSPECIFIED SNOMED Code(s): 753833751 Comment: - Lovenox to Coumadin (5) Full code status Current Visit: Yes Status: Acute Code(s): Z78.9 - OTHER SPECIFIED HEALTH STATUS SNOMED Code(s): 197783238 Status and Disposition: Inpatient. Disposition Per Orthopedics.
--- NOTE | 2018-11-10 10:33 | PN ---
Progress Note - Progress Note Date of Service: 11/10/18 SOAP: Subjective: []patient seen OOB in chair, feeling well, denies CP, palpitations or dizziness. Hip pain well managed. She would like to wait until tomorrow to go home- give Coumadin 1 more day to become more therapeutic. Objective: [] Vital Signs Temp 97.7 F 11/10/18 07:52 Pulse 66 11/10/18 07:52 Resp 18 11/10/18 08:59 BP 94/57 11/10/18 07:52 Pulse Ox 92 11/10/18 07:52 Intake & Output 11/09/18 11/10/18 11/10/18 18:59 06:59 18:59 Intake Total 2400 2530 Output Total 675 1200 200 Balance 1725 1330 -200 Weight 125 lb 9.6 oz Intake: IV Fluids 2400 980 LR 2400 980 IVPB 50 ABX - CEFAZOLIN 50 Oral 1500 Output: Urine 200 Lopes 425 1200 Estimated Blood Loss 250 Laboratory Results - last 24 hr 11/09/18 11/10/18 11/10/18 13:30 06:24 06:24 Hgb 11.4 L Hct 32 L Plt Count 221 MPV 9.0 INR (Anticoag Therapy) 1.09 1.16 H APTT 35.3 Sodium Potassium Chloride Carbon Dioxide Anion Gap BUN Creatinine Est GFR ( Amer) Est GFR (Non-Af Amer) BUN/Creatinine Ratio Glucose Calcium Magnesium 11/10/18 06:24 Hgb Hct Plt Count MPV INR (Anticoag Therapy) APTT Sodium 138 Potassium 4.7 Chloride 104 Carbon Dioxide 29 Anion Gap 5 BUN 13 Creatinine 0.78 Est GFR ( Amer) 86.0 Est GFR (Non-Af Amer) 71.1 BUN/Creatinine Ratio 16.7 Glucose 138 H Calcium 9.1 Magnesium 2.1 Right hip dressing dry and intact +DF right ankle full sensation distally calf NT and soft Assessment: [] s/p right total hip arthroplasty POD #1 Plan: []PT/OT WBAT RLE Dressing change 11/11 On coumadin for afib pre op, takes 2.5 mg daily with INR between 2.0-3 Continue Lovenox bridge Probable home 11/11
[2018-11-10] MEDS: Warfarin TAB(*) 2.5 MG PO SCH (17:22)
[2018-11-10] MEDS: Cetirizine* 10 MG TAB PO SCH (21:00)
[2018-11-10] MEDS: oxyCODONE TAB* 5 MG TAB PO PRN (21:04)
[2018-11-11] MEDS: oxyCODONE TAB* 5 MG TAB PO PRN (01:49)
[2018-11-11] MEDS: Acetaminophen TAB* 325 MG PO SCH ×3 (05:38→21:15)
[2018-11-11 06:25] LABS: Hematocrit 26 % (35-47); Hemoglobin 9.2 g/dL (12.0-16.0); Mean Platelet Volume 9.1 fL (7.4-10.4); Platelet Count 184 10^3/uL (150-450)
[2018-11-11 06:52] LABS: INR 1.45 (0.82-1.09)
[2018-11-11] MEDS: BECLOMETHASONE INH SCH (08:04)
[2018-11-11] MEDS: Magnesium Hydroxide LIQ* 30 ML UDC PO SCH ×2 (09:52→21:14)
[2018-11-11] MEDS: Multivitamins/Minerals TAB PO SCH (09:52)
[2018-11-11] MEDS: Potassium Chlor TAB* 20 MEQ TAB.ER PO SCH ×2 (09:53→21:12)
[2018-11-11] MEDS: Ferrous Sulfate TAB* 325 MG PO SCH ×2 (09:53→21:12)
[2018-11-11] MEDS: Docusate CAP* 100 MG PO SCH ×2 (09:53→21:12)
[2018-11-11] MEDS: Magnesium Oxide TAB* 400 MG PO SCH ×2 (09:53→21:12)
[2018-11-11] MEDS: Enoxaparin(*) 60 MG/0.6 ML SYR SUBCUT SCH ×2 (09:53→21:13)
[2018-11-11] MEDS: oxyCODONE/Acetamin 5/325 MG* TAB PO PRN ×2 (09:54→17:46)
--- NOTE | 2018-11-11 09:54 | PN ---
Progress Note - Progress Note Date of Service: 11/11/18 SOAP: Subjective: Pt. is alert, c/o nausea and fevers/chills. Objective: Vital Signs: Temp Pulse Resp BP Pulse Ox 100.1 F 74 14 105/44 94 11/11/18 09:28 11/11/18 08:04 11/11/18 08:04 11/11/18 07:29 11/11/18 09:01 Laboratory Results - last 24 hr 11/11/18 11/11/18 05:58 05:58 Hgb 9.2 L Hct 26 L Plt Count 184 MPV 9.1 INR (Anticoag Therapy) 1.45 H RLE - dressing changed, inc c/d/i. thigh soft, distally nvi. Assessment: 78 yo F pod 2 s/p RTHA Plan: pt - wbat rle increase bowel regimen today prn analgesia appreciate hospitalist assessment - febrile once overnight - will check UA and focus on IS plan d/c to home 11/12 if stable and o2 sats improved/afebrile
[2018-11-11] MEDS: Vitamin THERAPEUTIC TAB PO SCH (10:07)
[2018-11-11] MEDS: Multivitamins/Mins (NF) AREDS2 1 CAP CAP PO SCH (10:07)
--- NOTE | 2018-11-11 10:21 | PN ---
Subjective Date of Service: 11/11/18 Interval History: Patient is feeling poorly today. Patient endorses chills, slight SOB, N/V. Patient states she has increased urinary frequency and was incontinent of urine overnight several times. Patient denies history of UTI. Patient has been working well with PT. Patient states she has been dizzy with standing, but that this passes with taking it easy and sitting back down. Family History: Unchanged from Admission Social History: Unchanged from Admission Past Medical History: Unchanged from Admission Objective Active Medications: Acetaminophen (Tylenol Tab*) 975 mg PO Q8HR [facility] Last Admin: 11/11/18 05:38 Dose: Not Given Bisacodyl (Dulcolax Supp*) 10 mg CO DAILY PRN PRN Reason: constipation Cetirizine HCl (Zyrtec*) 10 mg PO QPM [facility] Last Admin: 11/10/18 21:00 Dose: 10 mg Cyclobenzaprine HCl (Flexeril Tab*) 5 mg PO TID PRN PRN Reason: SPASMS Diphenhydramine HCl (Benadryl Iv*) 25 mg IV Q6H PRN PRN Reason: itching Diphenhydramine HCl (Benadryl Po*) 25 mg PO Q6H PRN PRN Reason: itching Docusate Sodium (Colace Cap*) 100 mg PO BID [facility] Last Admin: 11/11/18 09:53 Dose: 100 mg Enoxaparin Sodium (Lovenox(*)) 50 mg SUBCUT Q12H [facility] Last Admin: 11/11/18 09:53 Dose: 50 mg Ferrous Sulfate (Ferrous Sulfate Tab*) 325 mg PO BID [facility] Last Admin: 11/11/18 09:53 Dose: 325 mg Lactated Ringer's (Lactated Ringers 1000 Ml Bag*) 1,000 mls @ 100 mls/hr IV PER RATE [facility] Last Admin: 11/10/18 06:24 Dose: 100 mls/hr Lactulose (Lactulose*) 30 ml PO Q6H PRN PRN Reason: constipation Magnesium Hydroxide (Milk Of Magnesia Liq*) 30 ml PO BID [facility] Last Admin: 11/11/18 09:52 Dose: Not Given Magnesium Hydroxide (Milk Of Magnesia Liq*) 30 ml PO Q6H PRN PRN Reason: constipation Magnesium Oxide (Magox 400 Tab*) 400 mg PO BID [facility] Last Admin: 11/11/18 09:53 Dose: 400 mg Morphine Sulfate (Morphine 4 Mg/Ml Vial (1 Ml)) 2 mg IV Q2H PRN PRN Reason: PAIN - UNRELIEVED Multivitamins/Minerals (Theragran/Minerals Tab*) 1 tab PO 0900 [facility] Last Admin: 11/11/18 09:52 Dose: Not Given Pto Nf Med* Qvar 100 Mcg (Beclomethasone Inh) 1 admin INH DAILY WITH MEAL [facility] Last Admin: 11/11/18 08:04 Dose: 1 admin Ondansetron HCl (Zofran Inj*) 4 mg IV Q6H PRN PRN Reason: nausea Last Admin: 11/10/18 14:22 Dose: 4 mg Ondansetron HCl (Zofran Odt Tab*) 4 mg PO Q6H PRN PRN Reason: NAUSEA Oxycodone HCl (Roxycodone Tab*) 10 mg PO Q4H PRN PRN Reason: PAIN - SEVERE Last Admin: 11/11/18 01:49 Dose: 5 mg Oxycodone/Acetaminophen (Percocet 5/325 Tab*) 2 tab PO Q4H PRN PRN Reason: PAIN - MODERATE Last Admin: 11/11/18 09:54 Dose: 2 tab Polyethylene Glycol/Electrolytes (Miralax*) 17 gm PO DAILY PRN PRN Reason: Constipation Potassium Chloride (Klor Con Er Tab*) 20 meq PO BID [facility] Last Admin: 11/11/18 09:53 Dose: 20 meq Temazepam (Restoril Cap*) 15 mg PO BEDTIME PRN PRN Reason: INSOMNIA Warfarin Sodium (Coumadin Tab(*)) 2.5 mg PO DAILY@1700 [facility]; Protocol Last Admin: 11/10/18 17:22 Dose: 2.5 mg Vital Signs - 8 hr 11/11/18 11/11/18 11/11/18 03:10 03:49 07:29 Temperature 99.8 F 101.2 F Pulse Rate 76 80 Respiratory 15 18 19 Rate Blood Pressure 107/38 105/44 (mmHg) O2 Sat by Pulse 92 89 Oximetry 11/11/18 11/11/18 11/11/18 07:57 08:04 09:01 Temperature Pulse Rate 74 Respiratory 18 14 Rate Blood Pressure (mmHg) O2 Sat by Pulse 92 94 Oximetry 11/11/18 11/11/18 09:28 09:54 Temperature 100.1 F Pulse Rate Respiratory 18 Rate Blood Pressure (mmHg) O2 Sat by Pulse Oximetry Oxygen Devices in Use Now: None Appearance: Patient is an 78yo female who appears stated age and is sitting in the bed in NAD. Eyes: No Scleral Icterus, PERRLA Ears/Nose/Mouth/Throat: NL Teeth, Lips, Gums, Clear Oropharnyx, Mucous Membranes Moist Neck: NL Appearance and Movements; NL JVP, Trachea Midline Respiratory: Symmetrical Chest Expansion and Respiratory Effort, Clear to Auscultation Cardiovascular: NL Sounds; No Murmurs; No JVD, RRR, No Edema Abdominal: NL Sounds; No Tenderness; No Distention Lymphatic: No Cervical Adenopathy Extremities: No Edema, No Clubbing, Cyanosis Skin: No Rash or Ulcers, No Nodules or Sclerosis Neurological: Alert and Oriented x 3, NL Sensation, NL Muscle Strength and Tone , - - CN II-XII intact. Result Diagrams: 11/11/18 05:58 11/10/18 06:24 Assess/Plan/Problems-Billing Assessment: Patient is an 78yo female with a PMH for Afib complicated by CVA, HTN who is S/ P RTHA and is doing well. - Patient Problems (1) Post-operative state Current Visit: Yes Status: Acute Code(s): Z98.890 - OTHER SPECIFIED POSTPROCEDURAL STATES SNOMED Code(s): 60270027 Comment: - Management per orthopedics - PT/OT, Bowel Regimen, Pain control - Trend H/H, no signs of ongoing bleeding. (2) Fever Current Visit: Yes Status: Acute Code(s): R50.9 - FEVER, UNSPECIFIED SNOMED Code(s): 568371969 Comment: - Post-op fever with urinary frequency and incontinence. - Most likely UTI, will also get CXR and encourage IS. - No overt sepsis. (3) Afib Current Visit: Yes Status: Acute Code(s): I48.91 - UNSPECIFIED ATRIAL FIBRILLATION SNOMED Code(s): 94895247 Comment: - History of stroke - Full dose Lovenox bridge to Coumadin. - INR increasing slowly on home dose. (4) HTN (hypertension) Current Visit: Yes Status: Acute Code(s): I10 - ESSENTIAL (PRIMARY) HYPERTENSION SNOMED Code(s): 86278215 Comment: - On no meds, is now borderline hypotensive. (5) DVT prophylaxis Current Visit: Yes Status: Acute Code(s): Z29.9 - ENCOUNTER FOR PROPHYLACTIC MEASURES, UNSPECIFIED SNOMED Code(s): 255580157 Comment: - Lovenox to Coumadin (6) Full code status Current Visit: Yes Status: Acute Code(s): Z78.9 - OTHER SPECIFIED HEALTH STATUS SNOMED Code(s): 676468987 Status and Disposition: Inpatient. Disposition Per Orthopedics.
[2018-11-11 10:36] LABS: Urine Appearance Turbid; Urine Bilirubin Negative (Negative); Urine Blood Negative (Negative); Urine Color Yellow; Urine Glucose Negative (Negative); Urine Ketones Negative (Negative); Urine Nitrite Negative (Negative); Urine Protein Negative (Negative); Urine Specific Gravity 1.013 (1.010-1.030); Urine Urobilinogen Negative (Negative)
[2018-11-11] MEDS: Cetirizine* 10 MG TAB PO SCH (17:31)
[2018-11-11] MEDS: Warfarin TAB(*) 2.5 MG PO SCH (17:31)
[2018-11-12] MEDS: Acetaminophen TAB* 325 MG PO SCH ×3 (05:07→21:33)
[2018-11-12 05:43] LABS: Hematocrit 26 % (35-47); Hemoglobin 9.2 g/dL (12.0-16.0); Mean Platelet Volume 8.9 fL (7.4-10.4); Platelet Count 184 10^3/uL (150-450)
[2018-11-12 05:47] LABS: INR 1.6 (0.82-1.09)
[2018-11-12] MEDS: BECLOMETHASONE INH SCH (07:19)
[2018-11-12] MEDS: Docusate CAP* 100 MG PO SCH ×2 (08:36→20:30)
[2018-11-12] MEDS: Magnesium Hydroxide LIQ* 30 ML UDC PO SCH ×2 (08:36→20:30)
[2018-11-12] MEDS: Ferrous Sulfate TAB* 325 MG PO SCH ×2 (09:03→20:37)
[2018-11-12] MEDS: Magnesium Oxide TAB* 400 MG PO SCH ×2 (09:03→20:37)
[2018-11-12] MEDS: Multivitamins/Minerals TAB PO SCH (09:03)
[2018-11-12] MEDS: Potassium Chlor TAB* 20 MEQ TAB.ER PO SCH ×2 (09:03→20:36)
[2018-11-12] MEDS: Enoxaparin(*) 60 MG/0.6 ML SYR SUBCUT SCH ×2 (09:04→20:37)
[2018-11-12 09:43] LABS: ABS Lymphocytes 0.7 10^3/ul (1.0-4.8); ABS Monocytes 0.5 10^3/ul (0-0.8); ABS Neutrophils 8.1 10^3/ul (1.5-7.7); Eosinophil % 0.1 %; Lymphocyte % 7.2 %; Mean Corpuscular HGB Conc 35 g/dL (31-36); Mean Corpuscular Hemoglobin 31 pg (27-31); Mean Corpuscular Volume 90 fL (80-97); Red Blood Count 2.92 10^6 /uL (3.70-4.87); Red Cell Distribution Width 15 % (10-15); White Blood Count 9.3 10^3/uL (3.5-10.8)
--- NOTE | 2018-11-12 09:45 | PN ---
Progress Note - Progress Note Date of Service: 11/12/18 SOAP: Subjective: Pt. is alert and oriented. States she is feeling lousy. c/o nausea and fevers/ chills. Objective: Vital Signs Temp 100.4 F 11/12/18 08:57 Pulse 80 11/12/18 07:26 Resp 18 11/12/18 08:00 BP 108/47 11/12/18 07:26 Pulse Ox 94 11/12/18 07:26 Intake & Output 11/11/18 11/12/18 11/12/18 18:59 06:59 18:59 Intake Total 620 330 Output Total 750 700 Balance -130 -370 Intake: Oral 500 330 NG Tube Irrigate Amount 120 Output: Urine 750 700 Other: Estimated Void Medium Date of Last Bowel 11/12/18 Movement # Bowel Movements 1 1 Estimated Stool Amount Small Medium # Voids 1 RLE - dressing is c/d/i. thigh soft, +df/pf, distally nvi. Assessment: 78 yo F pod 3 s/p RTHA Plan: pt - wbat rle prn analgesia appreciate hospitalist assessment - febrile this am, Pulse Ox continues to be low. Will obtain a CT scan today to rule out PE plan d/c to home 11/13 if stable and o2 sats improved/afebril
[2018-11-12] MEDS ORDERED: Iohexol 350* (CONTRAST) 500 ML MDV IV ONE (10:15)
[2018-11-12] MEDS: oxyCODONE/Acetamin 5/325 MG* TAB PO PRN ×2 (10:48→20:35)
[2018-11-12] MEDS: Cetirizine* 10 MG TAB PO SCH (17:35)
[2018-11-12] MEDS: Warfarin TAB(*) 2.5 MG PO SCH (17:35)
--- NOTE | 2018-11-12 17:54 | PN ---
Subjective Date of Service: 11/12/18 Interval History: Patient reports feeling cold frequently but has not felt fever/chills since yesterday. Denies chest pain, dysuria, difficulty breathing, abd pain, nausea/ vomiting. Reports she has been using incentive spirometer. Family History: Unchanged from Admission Social History: Unchanged from Admission Past Medical History: Unchanged from Admission Objective Active Medications: Acetaminophen (Tylenol Tab*) 975 mg PO Q8HR [facility] [place] Last Admin: 11/12/18 13:42 Dose: Not Given Bisacodyl (Dulcolax Supp*) 10 mg MA DAILY PRN PRN Reason: constipation Last Admin: 11/11/18 23:22 Dose: 10 mg Cetirizine HCl (Zyrtec*) 10 mg PO QPM [facility] [place] Last Admin: 11/12/18 17:35 Dose: 10 mg Cyclobenzaprine HCl (Flexeril Tab*) 5 mg PO TID PRN PRN Reason: SPASMS Diphenhydramine HCl (Benadryl Iv*) 25 mg IV Q6H PRN PRN Reason: itching Diphenhydramine HCl (Benadryl Po*) 25 mg PO Q6H PRN PRN Reason: itching Docusate Sodium (Colace Cap*) 100 mg PO BID [facility] [place] Last Admin: 11/12/18 08:36 Dose: Not Given Enoxaparin Sodium (Lovenox(*)) 50 mg SUBCUT Q12H [facility] [place] Last Admin: 11/12/18 09:04 Dose: 50 mg Ferrous Sulfate (Ferrous Sulfate Tab*) 325 mg PO BID [facility] [place] Last Admin: 11/12/18 09:03 Dose: 325 mg Lactated Ringer's (Lactated Ringers 1000 Ml Bag*) 1,000 mls @ 100 mls/hr IV PER RATE [facility] [place] Last Admin: 11/10/18 06:24 Dose: 100 mls/hr Lactulose (Lactulose*) 30 ml PO Q6H PRN PRN Reason: constipation Last Admin: 11/11/18 14:00 Dose: 30 ml Magnesium Hydroxide (Milk Of Magnesia Liq*) 30 ml PO BID [facility] [place] Last Admin: 11/12/18 08:36 Dose: Not Given Magnesium Hydroxide (Milk Of Magnesia Liq*) 30 ml PO Q6H PRN PRN Reason: constipation Magnesium Oxide (Magox 400 Tab*) 400 mg PO BID [facility] [place] Last Admin: 11/12/18 09:03 Dose: 400 mg Morphine Sulfate (Morphine 4 Mg/Ml Vial (1 Ml)) 2 mg IV Q2H PRN PRN Reason: PAIN - UNRELIEVED Multivitamins/Minerals (Theragran/Minerals Tab*) 1 tab PO 0900 [facility] [place] Last Admin: 11/12/18 09:03 Dose: 1 tab Pto Nf Med* Qvar 100 Mcg (Beclomethasone Inh) 1 admin INH DAILY WITH MEAL [facility] [place] Last Admin: 11/12/18 07:19 Dose: 1 admin Ondansetron HCl (Zofran Inj*) 4 mg IV Q6H PRN PRN Reason: nausea Last Admin: 11/10/18 14:22 Dose: 4 mg Ondansetron HCl (Zofran Odt Tab*) 4 mg PO Q6H PRN PRN Reason: NAUSEA Oxycodone HCl (Roxycodone Tab*) 10 mg PO Q4H PRN PRN Reason: PAIN - SEVERE Last Admin: 11/11/18 01:49 Dose: 5 mg Oxycodone/Acetaminophen (Percocet 5/325 Tab*) 2 tab PO Q4H PRN PRN Reason: PAIN - MODERATE Last Admin: 11/12/18 10:48 Dose: 2 tab Polyethylene Glycol/Electrolytes (Miralax*) 17 gm PO DAILY PRN PRN Reason: Constipation Potassium Chloride (Klor Con Er Tab*) 20 meq PO BID [facility] [place] Last Admin: 11/12/18 09:03 Dose: 20 meq Temazepam (Restoril Cap*) 15 mg PO BEDTIME PRN PRN Reason: INSOMNIA Warfarin Sodium (Coumadin Tab(*)) 2.5 mg PO DAILY@1700 [facility] [place]; Protocol Last Admin: 11/12/18 17:35 Dose: 2.5 mg Vital Signs - 8 hr 11/12/18 11/12/18 11/12/18 10:48 11:18 11:19 Temperature 100.3 F 100.2 F Pulse Rate 72 Respiratory 18 16 Rate Blood Pressure 108/49 (mmHg) O2 Sat by Pulse 100 Oximetry 11/12/18 11/12/18 13:41 15:36 Temperature 98.6 F Pulse Rate 69 Respiratory 16 16 Rate Blood Pressure 97/44 (mmHg) O2 Sat by Pulse 94 Oximetry Oxygen Devices in Use Now: None Appearance: Elerly white female laying in hospital bed appearing in NAD; at bedside Eyes: No Scleral Icterus, PERRLA Ears/Nose/Mouth/Throat: Mucous Membranes Moist Neck: NL Appearance and Movements; NL JVP Respiratory: Symmetrical Chest Expansion and Respiratory Effort, Clear to Auscultation Cardiovascular: NL Sounds; No Murmurs; No JVD, RRR Abdominal: NL Sounds; No Tenderness; No Distention, - - no suprapubic tenderness Extremities: No Edema, No Clubbing, Cyanosis Skin: No Rash or Ulcers Neurological: Alert and Oriented x 3, NL Muscle Strength and Tone Result Diagrams: 11/12/18 05:27 11/10/18 06:24 Assess/Plan/Problems-Billing Assessment: Patient is an 78yo female with a PMH for Afib complicated by CVA, HTN who is S/ P right total hip arthroplasty. Hospital medicine is consulted for co- management of chronic medical conditions. - Patient Problems (1) Post-operative state Current Visit: Yes Status: Acute Code(s): Z98.890 - OTHER SPECIFIED POSTPROCEDURAL STATES SNOMED Code(s): 97139847 Comment: - s/p right total hip arthroplasty, management per orthopedics - PT/OT, Bowel Regimen, Pain control - Trend H/H, no signs of ongoing bleeding (2) Fever Current Visit: Yes Status: Acute Code(s): R50.9 - FEVER, UNSPECIFIED SNOMED Code(s): 082249415 Comment: - Post-op fever with reported urinary frequency and incontinence - No dysuria and UA normal - CXR and CTA without evidence of pneumonia - Blood culture ordered today, pending - No leukocytosis - Fever likely 2/2 surgery (3) Afib Current Visit: Yes Status: Acute Code(s): I48.91 - UNSPECIFIED ATRIAL FIBRILLATION SNOMED Code(s): 50815564 Comment: - History of stroke - Full dose Lovenox bridge to Coumadin; INR still subtherapeutic today at 1.6 - rate-controlled; patient not on rate control med at home (4) HTN (hypertension) Current Visit: Yes Status: Acute Code(s): I10 - ESSENTIAL (PRIMARY) HYPERTENSION SNOMED Code(s): 28261266 Comment: - On no meds, is now borderline hypotensive at times - Will continue to monitor (5) Full code status Current Visit: Yes Status: Acute Code(s): Z78.9 - OTHER SPECIFIED HEALTH STATUS SNOMED Code(s): 729283622 (6) DVT prophylaxis Current Visit: Yes Status: Acute Code(s): Z29.9 - ENCOUNTER FOR PROPHYLACTIC MEASURES, UNSPECIFIED SNOMED Code(s): 919775029 Comment: - Lovenox to Coumadin Status and Disposition: Inpatient. Disposition Per Orthopedics.
[2018-11-13] MEDS: Acetaminophen TAB* 325 MG PO SCH ×2 (05:22→14:12)
[2018-11-13 07:08] LABS: Hematocrit 23 % (35-47); Hemoglobin 8.1 g/dL (12.0-16.0); Mean Platelet Volume 9.3 fL (7.4-10.4); Platelet Count 184 10^3/uL (150-450)
[2018-11-13 07:27] LABS: INR 1.71 (0.82-1.09)
--- NOTE | 2018-11-13 08:03 | DS ---
Orthopedic Discharge Summary - Discharge Summary Date of Admission:11/09/18 Date of Discharge: 11/13/18 Date of Surgery: 11/09/18 Attending Orthopedic Provider: Dr Mahmood Pre-operative Diagnosis: Right hip osteoarthritis Operative Procedure: right total hip arthroplasty Disposition of Patient: home Condition of Patient: stable History: TAWANA ALDRIDGE is a 78 year old F with years of increasingly severe right hip pain. Patient has failed conservative management and has elected to undergo a right total hip replacement Hospital Course: TAWANA was admitted to [facility] on 11/09/18. Patient underwent a right total hip replacement without complication followed by a brief recovery in PACU and transfer to the Short Stay Surgical Unit in stable condition. Our hospitalist service, physical therapy and occupational therapy also participated in this patients care. Post-op day 1: patient was alert and in no acute distress. Dressing was clean, dry and intact. Operative extremity dorsiflexion and plantarflexion intact, sensation intact to light touch distally, DP2+. Post-op day two: dressing was changed, incision was clean , dry and intact. Patient developed a post op fever which resolved prior to discharge, she had a CTA which was negative for PE. No UTI or pneumonia, blood cultures with no growth to date. She was deemed to be medically and orthopedically stable for discharge. Physical therapy goals were met. Discharge Medications Potassium Chlor Tab* [K Dur Tab*] 20 meq PO BID 02/05/13 [History Confirmed 03/20] Warfarin TAB(*) [Coumadin TAB(*)] 2.5 mg PO DAILY WITH MEAL 02/05/13 [History Confirmed 11/09/18] Cetirizine* [ZyrTEC 10 MG TAB*] 10 mg PO QPM 05/27/17 [History Confirmed ] Magnesium Oxide 250 mg PO BID 05/27/17 [History Confirmed 11/09/18] Beclomethasone Dipropionate [Qvar Redihaler] 40 mcg IN DAILY WITH MEAL 09/17/18 [History Confirmed 11/09/18] Vit C/E/Zn/Coppr/Lutein/Zeaxan [Preservision Areds 2 Softgel] 1 each PO BID 05/20 [History Confirmed 11/09/18] Acetaminophen TAB* [Tylenol TAB*] 975 mg PO Q8HR tab 11/13/18 [Rx] Docusate CAP* [Colace Cap*] 100 mg PO BID PRN #90 cap 11/13/18 [Rx] Enoxaparin(*) [Lovenox(*)] 50 mg SUBCUT Q12H #10 syringe 11/13/18 [Rx] oxyCODONE/Acetamin 5/325 MG* [Percocet 5/325 TAB*] 2 tab PO Q4H PRN #70 tab MDD 10 11/13/18 [Rx] Discharge Instructions following Orthopedic Surgery: Activity: * Weight Bearing as tolerated * Continue physical therapy and occupational therapy exercises as shown * home physical therapy Hip replacements: Continue Hip Precautions- do not cross legs or bend greater than 90 degrees/squat Wound care: * OK to shower on post-op day 3, no bathing, swimming, or submerging wound. * Use gentle soap, pat dry. Cover with gauze, ANDREIA wrap or tape. * Visiting home nurse to do wound checks. Call Orthopedic office for: * Increased drainage * Redness * Increased pain * Fever Go to ER with shortness of breath or chest pain. Diet: * Regular diet * Increase fluids and fiber to prevent constipation. * Continue to use stool softeners, call office if no bowel motion within 48 hours. Medications See Home Medication List in your packet for medications that you should take after discharge. DVT Prophylaxis: These medications increase bleeding tendency Coumadin Dosing: * Visiting home nurse to draw blood work for INR on Tuesday and . * Dosing: resume home dosing of 2.5 mg daily. Lovenox Dosing: [50] mg every 12 hours until INR is therapeutic. Orthopedic office will instruct you on when to stop injecting lovenox. Pain Control: Percocet Dosin/325 mg 1-2 tabs by mouth every 4-6 hours as needed for pain. Maximum of 10 tabs per day. Hold for sedation. Wean off as soon as pain allows Please note that Percocet contains Tylenol (acetaminophen). Maximum daily dose of Tylenol is 4000 mg from all sources. Antibiotics are required prior to any dental work. FOLLOW UP: Follow up with [Timoteo] Within 10-14 days, call for appointment Please call our office with any questions or concerns ([phone])
[2018-11-13] MEDS: Magnesium Hydroxide LIQ* 30 ML UDC PO SCH (08:19)
[2018-11-13] MEDS: Docusate CAP* 100 MG PO SCH (08:19)
[2018-11-13] MEDS: BECLOMETHASONE INH SCH (08:19)
[2018-11-13] MEDS: Potassium Chlor TAB* 20 MEQ TAB.ER PO SCH (08:21)
[2018-11-13] MEDS: Multivitamins/Minerals TAB PO SCH (08:21)
[2018-11-13] MEDS: Ferrous Sulfate TAB* 325 MG PO SCH (08:22)
[2018-11-13] MEDS: Magnesium Oxide TAB* 400 MG PO SCH (08:22)
[2018-11-13] MEDS: oxyCODONE/Acetamin 5/325 MG* TAB PO PRN ×3 (08:23→11:24)
[2018-11-13] MEDS: Enoxaparin(*) 60 MG/0.6 ML SYR SUBCUT SCH (08:24)
[2018-11-13 16:19] VITALS: BP 100/58
[2018-11-13] MEDS: Warfarin TAB(*) 2.5 MG PO SCH (16:28)
== END 2018-11-13 17:15 | disposition home health service (06) | DRG 470 ==
LOC: AA 11-09 12:35 → SSU 11-09 19:50
PROVIDERS: ADMIT Orthopaedic Surgery Adult Reconstructive Orthopaedic Surgery; ATTEND Orthopaedic Surgery Adult Reconstructive Orthopaedic Surgery
PROC: 0SR904A Replacement of Right Hip Joint with Ceramic on Polyethylene Synthetic Substitute, Uncemented, Open Approach (ICD-10-PCS; principal; 2018-11-09 15:30)
DX: M16.11 Unilateral primary osteoarthritis, right hip (principal); J90 Pleural effusion, not elsewhere classified; R50.82 Postprocedural fever; I48.91 Unspecified atrial fibrillation; I10 Essential (primary) hypertension; R35.0 Frequency of micturition; I27.20 Pulmonary hypertension, unspecified; J45.909 Unspecified asthma, uncomplicated; R32 Unspecified urinary incontinence; R11.0 Nausea; R42 Dizziness and giddiness; Z90.12 Acquired absence of left breast and nipple; I69.322 Dysarthria following cerebral infarction; Z82.0 Family history of epilepsy and other diseases of the nervous system; Z87.891 Personal history of nicotine dependence; Z79.01 Long term (current) use of anticoagulants; Z85.3 Personal history of malignant neoplasm of breast; Z88.1 Allergy status to other antibiotic agents; Z88.8 Allergy status to other drugs, medicaments and biological substances; Z83.3 Family history of diabetes mellitus; Z82.49 Family history of ischemic heart disease and other diseases of the circulatory system; Z72.89 Other problems related to lifestyle
CPT/HCPCS: 36415; 71045; 71275; 80048; 81003; 83735; 85014; 85018; 85025; 85049; 85610; 85730; 87040; 88304; 88311; 94640; A9270-GY; C1713; C1776; G8978-GP-CI; G8978-GP-CJ; G8979-GP-CI; J0690; J1100; J1650; J1885; J2250; J2405; J2704; J3010; J3490; Q9967

== ENCOUNTER 2018-11-15 10:44 | Emergency (ER) | payer MEDICARE ==
[2018-11-15] MEDS ORDERED: NS 0.9% 1000 ML** 1,000 ML IV ONE (11:40)
--- NOTE | 2018-11-15 11:50 | ED ---
Lower Extremity - HPI Summary HPI Summary: This patient is a 78 year old F presenting to [facility] accompanied by daughter with a chief complaint of hip pain since 11/14/18. Pt recently had hip surgery on 11/09/18, artificial hip. Daughter report surgery went well, however pt was in hospital for delirium for 4 days instead of 2. Per triage, the patient rates the pain 6/10 in severity. Pt feels like she might . And daughter reports this sort of behavior is unusual. Patient reports nausea, frequent urination, chills, and fatigue that has been worsening since 11/12/18. Patient denies fever , SHAH. Dr. Lezama referred pt to the ED. - History of Current Complaint Chief Complaint: EDWeakness Stated Complaint: LETHARGIC PER PT Time Seen by Provider: 11/15/18 11:41 Hx Obtained From: Patient, Family/Stable Hand Onset of Pain: Hours Onset/Duration: Still Present Severity Initially: Moderate Severity Currently: Moderate Pain Intensity: 6 Pain Scale Used: 0-10 Numeric Timing: Constant Associated Signs And Symptoms: Positive: Negative - SHAH, Other - nausea, chill, frequent urination. Negative: Fever - Allergies/Home Medications Allergies/Adverse Reactions: Allergies Allergy/AdvReac Type Severity Reaction Status Date / Time clarithromycin Allergy Severe Rash Verified 11/09/18 13:13 pseudoephedrine Allergy Severe See Comment Verified 11/09/18 13:13 Tetracyclines Allergy Severe Rash Verified 11/09/18 13:13 doxycycline Allergy Unknown Unknown Verified 11/09/18 13:13 Reaction Details PMH/Surg Hx/FS Hx/Imm Hx Endocrine/Hematology History: Denies: Hx Diabetes, Hx Thyroid Disease Cardiovascular History: Reports: Hx Valvular Heart Disease - ATRIAL VALVE ISSUE , Other Cardiovascular Problems/Disorders - A FIB, 2018, CARDIAC ABLATION FOR A FIB Denies: Hx Hypercholesterolemia, Hx Hypertension, Hx Peripheral Vascular Disease Respiratory History: Reports: Hx Asthma Denies: Hx Chronic Obstructive Pulmonary Disease (COPD) GI History: Denies: Hx Ulcer, Other GI Disorders Musculoskeletal History: Reports: Hx Arthritis - RIGHT HIP, FINGERS? RIGHT KNEE POSSIBLY, Other Musculoskeletal History - RIGHT KNEE ? POSSIBLE TORN MENISCUS Sensory History: Reports: Hx Cataracts - EARLY STAGES, Hx Contacts or Glasses - GLASSES, Hx Glaucoma - SMALL, JUST FORMING Denies: Hx Hearing Aid Opthamlomology History: Reports: Hx Cataracts - EARLY STAGES, Hx Contacts or Glasses - GLASSES, Hx Glaucoma - SMALL, JUST FORMING Neurological History: Denies: Hx Headaches, Hx Seizures, Hx Transient Ischemic Attacks (TIA) Psychiatric History: Denies: Hx Anxiety, Hx Depression - Cancer History Cancer Type, Location and Year: lt breast ca 1999 Hx Chemotherapy: No - TAMAXAFIN X 5 YRS POST CANCER Hx Radiation Therapy: No - Surgical History Surgery Procedure, Year, and Place: 1999 lt mastectomy,. 1966 endometriosis,. foot surgery at 10 yrs old. cardiac ablation, 2017 Hx Anesthesia Reactions: Yes - nausea with 1967 surgery Infectious Disease History: No Infectious Disease History: Reports: Hx Shingles - 3 yrs ago Denies: Hx Clostridium Difficile, Hx Hepatitis, Hx Human Immunodeficiency Virus (HIV), Hx of Known/Suspected MRSA, Hx Tuberculosis, History Other Infectious Disease, Traveled Outside the [place] in Last 30 Days - Family History Known Family History: Negative: Hypertension, Diabetes - Social History Occupation: Retired Alcohol Use: Daily Alcohol Amount: one Hx Substance Use: No Substance Use Type: Reports: None Hx Tobacco Use: No Smoking Status (MU): Former Smoker Amount Used/How Often: social smoker Review of Systems Positive: Chills, Fatigue. Negative: Fever Positive: frequency Positive: Other - hip pain Negative: Headache All Other Systems Reviewed And Are Negative: Yes Physical Exam - Summary Physical Exam Summary: Appearance: Well-appearing, Well-nourished, lying in bed comfortably Skin: Warm, dry, no obvious rash Eyes: sclera anicteric, no conjunctival pallor ENT: mucous membranes moist, pharynx appears normal Neck: Supple, nontender Respiratory: Clear to auscultation, no signs of respiratory distress Cardiovascular: Normal S1, S2. No murmurs. Normal distal pulses in tibial and radial bilaterally. Abdomen: Soft, nontender, normal active bowel sounds present Musculoskeletal: Normal, Strength/ROM Intact. well healing surgical scar overlying right hip, clear, no drainage. Neurological: A&Ox3, awake and alert, mentation is normal, speech is fluent and appropriate Psychiatric: affect is normal, does not appear anxious or depressed Triage Information Reviewed: Yes Vital Signs On Initial Exam: Initial Vitals Temp Pulse Resp BP Pulse Ox 98.3 F 67 14 136/68 97 11/15/18 10:47 11/15/18 10:47 11/15/18 10:47 11/15/18 10:47 11/15/18 10:47 Vital Signs Reviewed: Yes Diagnostics - Vital Signs Vital Signs Temp Pulse Resp BP Pulse Ox 11/15/18 10:47 98.3 F 67 14 136/68 97 - Laboratory Result Diagrams: 11/15/18 11:51 11/15/18 11:51 Lab Statement: Any lab studies that have been ordered have been reviewed, and results considered in the medical decision making process. - Radiology Hip/Pelvis X-Ray Radiology Interpretation Completed By: Radiologist Summary of Radiographic Findings: Hip/Pelvis X-Ray reveals, per radiologist, IMPRESSION: STATUS POST TOTAL RIGHT HIP REPLACEMENT SURGERY WITHOUT EVIDENCE FOR ACUTE FINDING. ED physician has reviewed this radiology report. - EKG 1155 Cardiac Rate: NL - 77 bpm EKG Rhythm: Sinus Rhythm Summary of EKG Findings: An EKG reveals NSR at 77 BPM, P waves, QRS complex, and T waves are within normal limits, T waves and intervals are normal, no ischemic changes. No STEMI This is a normal EKG Re-Evaluation - Re-Evaluation First Eval Re-Evaluation Time: 13:38 Comment: Discussed results with pt. Second Eval Re-Evaluation Time: 13:56 Comment: Spoke to pt's daughter who is also a doctor, would like to have a bladder scan done on pt, and would like pt admitted. Lower Extremity Course/Dx - Course Course Of Treatment: This patient is a 78 year old F presenting to [facility] accompanied by daughter with a chief complaint of hip pain since 11/14/18. Pt recently had hip surgery on 11/09/18, artificial hip. Daughter report surgery went well, however pt was in hospital for delirium for 4 days instead of 2. Patient reports nausea, frequent urination, chills, and fatigue that has been worsening since 11/12/18. Patient denies fever, SHAH. Bloodwork obtained. RBC is 3.15, Hgb is 9.8, Hct is 28, INR is 2.06, Glucose is 102, AST is 47. UA obtained Ur Specific [place] 1.009, Urine Ketones are trace. An EKG reveals NSR at 77 BPM, P waves, QRS complex, and T waves are within normal limits, T waves and intervals are normal, no ischemic changes. No STEMI This is a normal EKG. Hip/Pelvis X-Ray reveals, per radiologist, IMPRESSION: STATUS POST TOTAL RIGHT HIP REPLACEMENT SURGERY WITHOUT EVIDENCE FOR ACUTE FINDING. Patient will be discharged with follow up from PCP. The patient is agreeable with this plan. - Diagnoses Provider Diagnoses: Weakness - Physician Notifications Discussed Care Of Patient With: Fashion Illustrator Time Discussed With Above Provider: 13:59 Instructed by Provider To: Other - Will see pt in ED Discharge - Sign-Out/Discharge Documenting (check all that apply): Patient Departure - Discharge Patient Received Moderate/Deep Sedation with Procedure: No - Discharge Plan Condition: Good Disposition: HOME Prescriptions: Ondansetron ODT TAB* [Zofran 4 MG Odt TAB*] 8 mg PO Q6H PRN #12 tab.odt PRN Reason: Nausea Phenazopyridine 200 mg (NF) [Pyridium 200 MG tab *] 200 mg PO TID PRN #6 tab PRN Reason: Spasms - Bladder Prochlorperazine TAB* [Compazine Tab*] 10 mg PO Q6H PRN #12 tab PRN Reason: Nausea Patient Education Materials: Acute Nausea and Vomiting (ED), Weakness (ED) Referrals: Anil Vargas MD [Primary Care Provider] - - Attestation Statements Document Initiated by Scribe: Yes Documenting Scribe: Clare Person Provider For Whom Joseibe is Documenting (Include Credential): Dr. Preet Coronel Scribe Attestation: Clare Bhandari, joseibed for Dr. Preet Coronel on 11/15/18 at 1501. Status of Scribe Document: Ready
[2018-11-15 12:01] LABS: Hematocrit 28 % (35-47); Hemoglobin 9.8 g/dL (12.0-16.0); Mean Corpuscular HGB Conc 35 g/dL (31-36); Mean Corpuscular Hemoglobin 31 pg (27-31); Mean Corpuscular Volume 90 fL (80-97); Platelet Count 306 10^3/uL (150-450); Red Blood Count 3.15 10^6 /uL (3.70-4.87); Red Cell Distribution Width 14 % (10-15); White Blood Count 5.4 10^3/uL (3.5-10.8)
[2018-11-15] MEDS ORDERED: oxyCODONE TAB* 5 MG TAB PO ONE (12:11)
[2018-11-15] MEDS ORDERED: Ondansetron INJ* 2 MG/ML VIAL IV ONE (12:11)
[2018-11-15 12:20] LABS: Albumin 3.5 g/dL (3.2-5.2); Albumin/Globulin Ratio 1.2 (1-3); BUN/Creatinine Ratio 13.9 (8-20); EGFR African American 84.7 (>60); Magnesium 2.2 mg/dL (1.9-2.7); Potassium 3.9 mmol/L (3.5-5.0); Total Bilirubin 0.9 mg/dL (0.2-1.0); Total Protein 6.5 g/dL (6.4-8.9)
[2018-11-15 12:28] LABS: INR 2.06 (0.82-1.09)
[2018-11-15 12:54] LABS: TSH (Thyroid Stimulating Horm) 6.14 mcIU/mL (0.34-5.60)
[2018-11-15 13:13] LABS: ABS Basophils 0.1 10^3/ul (0-0.2); ABS Eosinophils 0.3 10^3/ul (0-0.6); ABS Lymphocytes 0.7 10^3/ul (1.0-4.8); ABS Monocytes 0.3 10^3/ul (0-0.8); Eosinophil % 5.6 %; Lymphocyte % 13.1 %; Nucleated Red Blood Cells % 0.3
[2018-11-15 13:13] LABS: Urine Appearance Cloudy; Urine Bilirubin Negative (Negative); Urine Blood Negative (Negative); Urine Color Yellow; Urine Glucose Negative (Negative); Urine Ketones Trace (Negative); Urine Nitrite Negative (Negative); Urine Protein Negative (Negative); Urine Specific Gravity 1.009 (1.010-1.030); Urine Urobilinogen Negative (Negative)
[2018-11-15 15:10] VITALS: BP 104/50
== END 2018-11-15 15:25 | disposition home or self-care (01) ==
LOC: ED 10:44
DX: R53.1 Weakness (principal); Z96.641 Presence of right artificial hip joint; I48.91 Unspecified atrial fibrillation; J45.909 Unspecified asthma, uncomplicated; M19.90 Unspecified osteoarthritis, unspecified site; Z88.1 Allergy status to other antibiotic agents; Z88.8 Allergy status to other drugs, medicaments and biological substances; Z87.891 Personal history of nicotine dependence
CPT/HCPCS: 36415; 80053; 81003; 83605; 83735; 84443; 84484; 85025; 85610; 86850; 86900; 86901; 93005; 96361; 96374; 99283; A9270-GY; J2405

== ENCOUNTER 2023-08-22 20:21 | Observation (INO) ==
[2023-08-22 20:58] LABS: ABS Eosinophils 0.2 10^3/uL (0.0-0.5); ABS Lymphocytes 1.1 10^3/uL (1.0-4.8); ABS Monocytes 0.2 10^3/uL (0.0-0.9); ABS Neutrophils 2.8 10^3/uL (1.5-7.6); ABS Nucleated RBC 0.01 10^3/ul; Eosinophil % 4.1 %; Hematocrit 42.7 % (35-45); Hemoglobin 14.7 g/dL (11.5-14.3); Lymphocyte % 26.2 %; Mean Corpuscular Hgb Conc 34.5 g/dL (31-36); Mean Corpuscular Volume 86.9 fL (80-97); Mean Platelet Volume 8.7 fL (7.5-11.2); Nucleated Red Blood Cells % 0.3 %/100WBC (0.0-0.8); Platelet Count 247 10^3/uL (150-450); Red Blood Count 4.91 10^6/uL (3.63-4.92); Red Cell Distribution Width 16.1 % (12-17); White Blood Count 4.4 10^3/uL (3.8-11.8)
[2023-08-22] MEDS: Metoprolol Tartrate 5 mg VIAL 5 ml VIAL (1 mg/ml) IV ONE (21:07)
[2023-08-22 21:09] LABS: INR 1.09 (0.83-1.13)
[2023-08-22 21:33] LABS: Albumin 4.4 g/dL (3.2-5.2); Albumin/Globulin Ratio 1.8 (1-3); Calcium 9.7 mg/dL (8.6-10.3); Creatinine, Serum 1.29 mg/dL (0.51-0.95); Globulin 2.5 g/dL (2-4); Total Bilirubin 0.5 mg/dL (0.2-1.0); Total Protein 6.9 g/dL (6.4-8.9); eGFR CKD-EPI 40.7 (>60)
[2023-08-22 22:09] LABS: Magnesium 2.4 mg/dL (1.9-2.7)
[2023-08-22 22:38] LABS: High Sensitivity Troponin 1 Hr 9 pg/mL (<15)
[2023-08-23] MEDS ORDERED: Atropine 0.1 MG/ML 10 ml SYR (1 mg) IV PUSH PRN (00:10)
[2023-08-23] MEDS: Lactated Ringers 1000 ml BAG 1,000 ML IV ONE (00:18)
[2023-08-23 00:43] LABS: TSH Ultra Thyroid Stim Horm 5.89 mcIU/mL (0.34-5.60)
[2023-08-23] MEDS: Lactated Ringers 1000 ml BAG 1,000 ML IV SCH (03:23)
[2023-08-23 05:39] LABS: ABS Eosinophils 0.1 10^3/uL (0.0-0.5); ABS Lymphocytes 1.2 10^3/uL (1.0-4.8); ABS Monocytes 0.3 10^3/uL (0.0-0.9); ABS Neutrophils 2.5 10^3/uL (1.5-7.6); Eosinophil % 2.3 %; Hematocrit 38.8 % (35-45); Hemoglobin 13.4 g/dL (11.5-14.3); Lymphocyte % 28.1 %; Mean Corpuscular Hgb Conc 34.7 g/dL (31-36); Mean Corpuscular Volume 86.5 fL (80-97); Mean Platelet Volume 8.5 fL (7.5-11.2); Nucleated Red Blood Cells % 0.1 %/100WBC (0.0-0.8); Platelet Count 221 10^3/uL (150-450); Red Blood Count 4.48 10^6/uL (3.63-4.92); White Blood Count 4.2 10^3/uL (3.8-11.8)
[2023-08-23 06:13] LABS: Calcium 9.2 mg/dL (8.6-10.3); Creatinine, Serum 0.98 mg/dL (0.51-0.95); Magnesium 2.3 mg/dL (1.9-2.7); Potassium 4.2 mmol/L (3.5-5.0); eGFR CKD-EPI 56.6 (>60)
[2023-08-23 09:29] LABS: Free T3 2.96 pg/mL (2.5-3.9)
[2023-08-23 09:30] LABS: Free T4 0.76 ng/dL (0.61-1.12)
[2023-08-23 14:03] VITALS: BP 91/36
[2023-08-24] MEDS ORDERED: Cholecalciferol (VIT D3) 1,000 unit TAB PO SCH (09:00)
== END 2023-08-23 14:47 | disposition home or self-care (01) ==
LOC: ED 20:21 → SUATTDRO 22:38 → EDHOLD 22:38 → INTOOBSV 22:38 → ICU 22:52
PROVIDERS: ADMIT Internal Medicine; ATTEND Student in an Organized Health Care Education/Training Program

== ENCOUNTER 2023-09-11 04:21 | Observation (INO) ==
[2023-09-11 05:19] LABS: ABS Eosinophils 0.1 10^3/uL (0.0-0.5); ABS Monocytes 0.3 10^3/uL (0.0-0.9); ABS Neutrophils 5.7 10^3/uL (1.5-7.6); ABS Nucleated RBC 0.01 10^3/ul; Eosinophil % 1.3 %; Hematocrit 44.1 % (35-45); Hemoglobin 15.4 g/dL (11.5-14.3); Lymphocyte % 13.4 %; Mean Corpuscular Hemoglobin 30.4 pg (27-33); Mean Corpuscular Hgb Conc 34.9 g/dL (31-36); Mean Corpuscular Volume 87.1 fL (80-97); Mean Platelet Volume 8.7 fL (7.5-11.2); Nucleated Red Blood Cells % 0.1 %/100WBC (0.0-0.8); Platelet Count 248 10^3/uL (150-450); Red Blood Count 5.06 10^6/uL (3.63-4.92); Red Cell Distribution Width 15.4 % (12-17); White Blood Count 7.1 10^3/uL (3.8-11.8)
[2023-09-11] MEDS: NS 0.9% 500 ml BAG 500 ML IV ONE ×2 (06:06→15:02)
[2023-09-11 06:07] LABS: Albumin 4.5 g/dL (3.2-5.2); Albumin/Globulin Ratio 1.7 (1-3); Calcium 10.1 mg/dL (8.6-10.3); Creatinine, Serum 1.16 mg/dL (0.51-0.95); Globulin 2.7 g/dL (2-4); Magnesium 2.2 mg/dL (1.9-2.7); Potassium 4.2 mmol/L (3.5-5.0); Total Bilirubin 0.6 mg/dL (0.2-1.0); Total Protein 7.2 g/dL (6.4-8.9); eGFR CKD-EPI 46.2 (>60)
[2023-09-11 06:26] LABS: INR 1.27 (0.83-1.13)
[2023-09-11 06:42] LABS: High Sensitivity Troponin 1 Hr 8 pg/mL (<15)
[2023-09-11] MEDS: NS 0.9% 1000 ml BAG 1,000 ML IV ONE (07:38)
[2023-09-11] MEDS ORDERED: Polyethylene Glycol 3350 17 GM PACKET PO PRN (15:16)
[2023-09-11] MEDS: NF:Multivitamins/Mins AREDS2 (NF) CAP PO SCH (16:28)
[2023-09-11] MEDS: Enoxaparin 60 MG/0.6 ML SYR SUBCUT SCH (16:40)
[2023-09-12 05:59] VITALS: BP 131/58
[2023-09-12 09:55] LABS: Calcium 9.1 mg/dL (8.6-10.3); Creatinine, Serum 1.01 mg/dL (0.51-0.95); Potassium 4.7 mmol/L (3.5-5.0); eGFR CKD-EPI 54.6 (>60)
[2023-09-12] MEDS ORDERED: fentaNYL 100 mcg/2 ml 50 MCG/ML VIAL ONE (10:13)
== END 2023-09-12 13:59 | disposition home or self-care (01) ==
LOC: EDHOLD 04:21 → ED 04:21 → SUATTDRO 14:08 → ICU 14:43 → EDHOLD 14:51 → MEDTELE 15:45
PROVIDERS: ADMIT Hospitalist; ATTEND Family Medicine